=== PATIENT | male | born 1940 | race Caucasian/White ===

== ENCOUNTER 2018-09-09 06:27 | Emergency (ER) | payer MEDICARE ==
[~2018-09-09] VITALS: Ht 182.9 cm; Wt 70.3 kg
[2018-09-09 06:35] VITALS: BP 170/87
--- NOTE | 2018-09-09 07:00 | PHYS DOC ---
Past Medical History Past Medical History: CVA, High Cholesterol, Hypertension Past Surgical History: Other Additional Past Surgical Histo: AAA Alcohol Use: None Drug Use: None Adult General Chief Complaint Chief Complaint: EARACHE/EAR PAIN HPI HPI Patient is a 78 year old [f__sex] who presents with [] Review of Systems Review of Systems Constitutional: Denies fever or chills [] Eyes: Denies change in visual acuity, redness, or eye pain [] HENT: Denies nasal congestion or sore throat [] Respiratory: Denies cough or shortness of breath [] Cardiovascular: No additional information not addressed in HPI [] GI: Denies abdominal pain, nausea, vomiting, bloody stools or diarrhea [] : Denies dysuria or hematuria [] Musculoskeletal: Denies back pain or joint pain [] Integument: Denies rash or skin lesions [] Neurologic: Denies headache, focal weakness or sensory changes [] Endocrine: Denies polyuria or polydipsia [] All other systems were reviewed and found to be within normal limits, except as documented in this note. Allergies Allergies Allergies Coded Allergies Type Severity Reaction Last Updated Verified No Known Drug Allergies 09/09/18 No Physical Exam Physical Exam Constitutional: Well developed, well nourished, no acute distress, non-toxic appearance. [] HENT: Normocephalic, atraumatic, bilateral external ears normal, oropharynx moist, no oral exudates, nose normal. [] Eyes: PERRLA, EOMI, conjunctiva normal, no discharge. [] Neck: Normal range of motion, no tenderness, supple, no stridor. [] Cardiovascular:Heart rate regular rhythm, no murmur [] Lungs & Thorax: Bilateral breath sounds clear to auscultation [] Abdomen: Bowel sounds normal, soft, no tenderness, no masses, no pulsatile masses. [] Skin: Warm, dry, no erythema, no rash. [] Back: No tenderness, no CVA tenderness. [] Extremities: No tenderness, no cyanosis, no clubbing, ROM intact, no edema. [] Neurologic: Alert and oriented X 3, normal motor function, normal sensory function, no focal deficits noted. [] Psychologic: Affect normal, judgement normal, mood normal. [] Current Patient Data Vital Signs Vital Signs Date Time Temp Pulse Resp B/P (MAP) Pulse Ox O2 Delivery O2 Flow Rate FiO2 09/09/18 06:35 98.2 77 22 170/87 (114) 92 Room Air 98.2 EKG EKG [] Radiology/Procedures Radiology/Procedures [] Course & Med Decision Making Course & Med Decision Making Pertinent Labs and Imaging studies reviewed. (See chart for details) [] Dragon Disclaimer Dragon Disclaimer This electronic medical record was generated, in whole or in part, using a voice recognition dictation system. Departure Departure Impression: Primary Impression: Ear discharge blood Disposition: HOME, SELF-CARE Condition: STABLE Referrals: UNKNOWN PCP NAME (PCP) FABIOLA EWING MD Patient Instructions: Tympanic Membrane Perforation-SportsMed Additional Instructions: Paper Rx for Corticosporin Otic suspension given. Problem Qualifiers Primary Impression: Ear discharge blood Laterality: right Qualified Codes: H92.21 - Otorrhagia, right ear LEVAR LOYA DO Sep 09, 2018 07:00
== END 2018-09-09 07:15 | disposition home or self-care (01) ==
LOC: ER 06:27
DX: H92.21 Otorrhagia, right ear (principal); I10 Essential (primary) hypertension; E78.00 Pure hypercholesterolemia, unspecified; Z86.73 Personal history of transient ischemic attack (TIA), and cerebral infarction without residual deficits
CPT/HCPCS: 99283

== ENCOUNTER 2019-11-24 17:03 | Emergency (ER) | payer MEDICARE ==
[~2019-11-24] VITALS: Ht 182.9 cm; Wt 73.6 kg
[~2019-11-24 17:03] MED LIST: AMLO10TA8 PO; APIX5TAB PO; ATOR20TA PO; LEVE500T56 PO; LISI-334 PO; METO25TA4 PO; METO50TA6 PO
--- NOTE | 2019-11-24 17:33 | PHYS DOC ---
Past Medical History Past Medical History: CVA, High Cholesterol, Hypertension (LEVAR HARRISON APRN) Past Surgical History: Other Additional Past Surgical Histo: AAA (LEVAR HARRISON APRN) Alcohol Use: None Drug Use: None (LEVAR HARRISON APRN) Adult General Chief Complaint Chief Complaint: HYPERTENSION HPI HPI Patient is a 79 year old male who presents with high blood pressure that his home health nurse noticed earlier today. The patient was recently admitted to the hospital for stroke. States that since he was discharged his blood pressures been running in the 150s and 160s systolic. His primary care doctor did put him on hydralazine yesterday. He took his first dose at 4:00 today. He is also taking Metoprolol, Amlodipine, and Lisinopril. He states he's been taking his medicines as prescribed. He also states that he is not currently having any symptoms. He denies chest pain, nausea, headache, dizziness, blurry vision. (LEVAR HARRISON APRN) Review of Systems Review of Systems Constitutional: Denies fever or chills [] Eyes: Denies change in visual acuity, redness, or eye pain [] HENT: Denies nasal congestion or sore throat [] Respiratory: Denies cough or shortness of breath [] Cardiovascular: No additional information not addressed in HPI [] GI: Denies abdominal pain, nausea, vomiting, bloody stools or diarrhea [] : Denies dysuria or hematuria [] Musculoskeletal: Denies back pain or joint pain [] Integument: Denies rash or skin lesions [] Neurologic: Denies headache, focal weakness or sensory changes [] Endocrine: Denies polyuria or polydipsia [] Complete systems were reviewed and found to be within normal limits, except as documented in this note. (LEVAR HARRISON APRN) Current Medications Current Medications Current Medications Medications (Trade) Dose Ordered Sig/Margie Start Time Stop Time Status Last Admin Dose Admin Labetalol HCl (Normodyne Iv Push) 20 mg 1X ONCE 11/24/19 17:45 11/24/19 17:46 DC 11/24/19 17:45 20 MG (GERRI ZARATE MD) Allergies Allergies Allergies Coded Allergies Type Severity Reaction Last Updated Verified No Known Drug Allergies 09/09/18 No (GERRI ZARATE MD) Physical Exam Physical Exam Constitutional: Well developed, well nourished, no acute distress, non-toxic appearance. [] HENT: Normocephalic, atraumatic, bilateral external ears normal, oropharynx [address], no oral exudates, nose normal. [] Eyes: PERRLA, EOMI, conjunctiva normal, no discharge. [] Neck: Normal range of motion, no tenderness, supple, no stridor. [] Cardiovascular:Heart rate regular rhythm, no murmur [] Lungs & Thorax: Bilateral breath sounds clear to auscultation [] Abdomen: Bowel sounds normal, soft, no tenderness, no masses, no pulsatile masses. [] Skin: Warm, dry, no erythema, no rash. [] Neurologic: Alert and oriented X 3, normal motor function, normal sensory function, no focal deficits noted. [] Psychologic: Affect normal, judgement normal, mood normal. [] (LEVAR HARRISON APRN) Current Patient Data Vital Signs Vital Signs Date Time Temp Pulse Resp B/P (MAP) Pulse Ox O2 Delivery O2 Flow Rate FiO2 11/24/19 18:03 69 98 11/24/19 17:45 220/117 11/24/19 17:20 96.3 23 Room Air 96.3 (GERRI ZARATE MD) Lab Values Laboratory Tests Test 11/24/19 17:45 11/24/19 18:28 White Blood Count 7.5 x10^3/uL (4.0-11.0) Red Blood Count 4.33 x10^6/uL (4.30-5.70) Hemoglobin 12.2 g/dL (13.0-17.5) L Hematocrit 37.2 % (39.0-53.0) L Mean Corpuscular Volume 86 fL (79-100) Mean Corpuscular Hemoglobin 28 pg (25-35) Mean Corpuscular Hemoglobin Concent 33 g/dL (31-37) Red Cell Distribution Width 14.9 % (11.5-14.5) H Platelet Count 306 x10^3/uL (140-400) Neutrophils (%) (Auto) 76 % (31-73) H Lymphocytes (%) (Auto) 9 % (24-48) L Monocytes (%) (Auto) 10 % (0-9) H Eosinophils (%) (Auto) 3 % (0-3) Basophils (%) (Auto) 1 % (0-3) Neutrophils # (Auto) 5.7 x10^3/uL (1.8-7.7) Lymphocytes # (Auto) 0.7 x10^3/uL (1.0-4.8) L Monocytes # (Auto) 0.7 x10^3/uL (0.0-1.1) Eosinophils # (Auto) 0.2 x10^3/uL (0.0-0.7) Basophils # (Auto) 0.1 x10^3/uL (0.0-0.2) Sodium Level 147 mmol/L (136-145) H Potassium Level 4.1 mmol/L (3.5-5.1) Chloride Level 108 mmol/L (98-107) H Carbon Dioxide Level 34 mmol/L (21-32) H Anion Gap 5 (6-14) L Blood Urea Nitrogen 14 mg/dL (8-26) Creatinine 1.1 mg/dL (0.7-1.3) Estimated GFR (Cockcroft-Gault) 64.4 BUN/Creatinine Ratio 13 (6-20) Glucose Level 99 mg/dL (70-99) Calcium Level 8.4 mg/dL (8.5-10.1) L Total Bilirubin 0.7 mg/dL (0.2-1.0) Aspartate Amino Transferase (AST) 16 U/L (15-37) Alanine Aminotransferase (ALT) 17 U/L (16-63) Alkaline Phosphatase 113 U/L (46-116) Troponin I Quantitative < 0.017 ng/mL (0.000-0.055) Total Protein 6.2 g/dL (6.4-8.2) L Albumin 2.9 g/dL (3.4-5.0) L Albumin/Globulin Ratio 0.9 (1.0-1.7) L Laboratory Tests 11/24/19 17:45 Laboratory Tests 11/24/19 18:28 (GERRI ZARATE MD) Lab Values Laboratory Tests Test 11/24/19 17:45 White Blood Count 7.5 x10^3/uL (4.0-11.0) Red Blood Count 4.33 x10^6/uL (4.30-5.70) Hemoglobin 12.2 g/dL (13.0-17.5) L Hematocrit 37.2 % (39.0-53.0) L Mean Corpuscular Volume 86 fL (79-100) Mean Corpuscular Hemoglobin 28 pg (25-35) Mean Corpuscular Hemoglobin Concent 33 g/dL (31-37) Red Cell Distribution Width 14.9 % (11.5-14.5) H Platelet Count 306 x10^3/uL (140-400) Neutrophils (%) (Auto) 76 % (31-73) H Lymphocytes (%) (Auto) 9 % (24-48) L Monocytes (%) (Auto) 10 % (0-9) H Eosinophils (%) (Auto) 3 % (0-3) Basophils (%) (Auto) 1 % (0-3) Neutrophils # (Auto) 5.7 x10^3/uL (1.8-7.7) Lymphocytes # (Auto) 0.7 x10^3/uL (1.0-4.8) L Monocytes # (Auto) 0.7 x10^3/uL (0.0-1.1) Eosinophils # (Auto) 0.2 x10^3/uL (0.0-0.7) Basophils # (Auto) 0.1 x10^3/uL (0.0-0.2) Laboratory Tests 11/24/19 17:45 (LEVAR HARRISON APRN) EKG EKG EKG interpreted by Dr. Henry Sinus with rate of 77. (LEVAR HARRISON APRN) Radiology/Procedures Radiology/Procedures [][facility] [address], [place] [id number] IMAGING REPORT Signed PATIENT: DIANA CAMACHO ACCOUNT: [id number] : 1940 LOCATION: ER AGE: 79 SEX: M EXAM STATUS: REG ER ORD. PHYSICIAN: LEVAR HARRISON APRN REASON: hypertension, headache PROCEDURE: CT HEAD WO CONTRAST CT HEAD WO CONTRAST History: Hypertension. Headache. Comparison: November 09, 2019 Technique: Noncontrast CT imaging was performed of the head. Exposure: One or more of the following individualized dose reduction techniques were utilized for this examination: 1. Automated exposure control 2. Adjustment of the mA and/or kV according to patient size 3. Use of iterative reconstruction technique. Findings: No intracranial hemorrhage. No mass effect. No hydrocephalus. Mild brain parenchymal volume loss. Chronic left basal ganglia and right inferior cerebellar lacunar infarcts. Mild foci of decreased attenuation within the hemispheric white matter, most often due to chronic microvascular ischemia. Imaged orbits are unremarkable. Small left maxillary sinus mucous retention cyst or polyp. Minimal scattered mucosal thickening. Minimal left mastoid fluid. No acute calvarial fracture. Impression: 1. No acute intracranial abnormality. Electronically signed by: Kevin Parker DO (11/24/2019 6:13 PM) [facility] DICTATED and SIGNED BY: KEVIN PARKER DO DATE: 11/24/191812 (LEVAR HARRISON APRN) Course & Med Decision Making Course & Med Decision Making Pertinent Labs and Imaging studies reviewed. (See chart for details) Will get CT head, labs, EKG, and give labetalol. CT head is unremarkable. Labetalol lowered blood pressure to 181/91. Discussed symptoms with patient. There has been improvement in blood pressure. Discussed blood pressure diary and let primary care provider know about symptoms. Also discussed to come back to ER if becomes symptomatic. Will d/c home and give time for new blood pressure medications to work. (LEVAR HARRISON APRN) Course & Med Decision Making Lab values reviewed (GERRI ZARATE MD) Dragon Disclaimer Dragon Disclaimer This electronic medical record was generated, in whole or in part, using a voice recognition dictation system. (LEVAR HARRISON APRN) Departure Departure Impression: Primary Impression: Hypertension Disposition: HOME, SELF-CARE Condition: STABLE Referrals: KRISTA PELAEZ (PCP) Patient Instructions: Hypertension Additional Instructions: Thank you for visiting [facility]. We appreciate you trusting us with your care. If any additional problems come up don't hesitate to return to visit us. Please follow up with your primary care provider so they can plan additional care if needed and know about the problem that you had. If symptoms worsen come back to the Emergency Department. Any concerning symptoms that start such as chest pain, shortness of air, weakness or numbness on one side of the body, running high fevers or any other concerning symptoms return to the ER. Problem Qualifiers Primary Impression: Hypertension Hypertension type: unspecified Qualified Codes: I10 - Essential (primary) hypertension LEVAR HARRISON APRN Nov 24, 2019 17:33 GERRI ZARATE MD Nov 24, 2019 19:51
[2019-11-24] MEDS ORDERED: LABETALOL 20 MG/4 ML DISP.SYRIN. IVP ONE (17:45)
[2019-11-24 17:59] LABS: BASO # 0.1 x10^3/uL (0.0-0.2); BASO % 1 % (0-3); EOS # 0.2 x10^3/uL (0.0-0.7); EOS % 3 % (0-3); HEMATOCRIT 37.2 % (39.0-53.0); HEMOGLOBIN 12.2 g/dL (13.0-17.5); LYMPH # 0.7 x10^3/uL (1.0-4.8); LYMPH % 9 % (24-48); MEAN CORPUSCULAR HEMOGLOBIN 28 pg (25-35); MEAN CORPUSCULAR HGB CONC 33 g/dL (31-37); MEAN CORPUSCULAR VOLUME 86 fL (79-100); MONO # 0.7 x10^3/uL (0.0-1.1); MONO % 10 % (0-9); NEUT # 5.7 x10^3/uL (1.8-7.7); NEUT % 76 % (31-73); PLATELET COUNT 306 x10^3/uL (140-400); RED BLOOD COUNT 4.33 x10^6/uL (4.30-5.70); RED CELL DISTRIBUTION WIDTH 14.9 % (11.5-14.5); WHITE BLOOD COUNT 7.5 x10^3/uL (4.0-11.0)
--- NOTE | 2019-11-24 18:16 | RAD ---
CT HEAD WO CONTRAST History: Hypertension. Headache. Comparison: November 09, 2019 Technique: Noncontrast CT imaging was performed of the head. Exposure: One or more of the following individualized dose reduction techniques were utilized for this examination: 1. Automated exposure control 2. Adjustment of the mA and/or kV according to patient size 3. Use of iterative reconstruction technique. Findings: No intracranial hemorrhage. No mass effect. No hydrocephalus. Mild brain parenchymal volume loss. Chronic left basal ganglia and right inferior cerebellar lacunar infarcts. Mild foci of decreased attenuation within the hemispheric white matter, most often due to chronic microvascular ischemia. Imaged orbits are unremarkable. Small left maxillary sinus mucous retention cyst or polyp. Minimal scattered mucosal thickening. Minimal left mastoid fluid. No acute calvarial fracture. Impression: 1. No acute intracranial abnormality. Electronically signed by: Kevin Parker DO (11/24/2019 6:13 PM) [facility]
--- NOTE | 2019-11-24 18:49 | EKG ---
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
[2019-11-24 19:02] LABS: CALCIUM 8.4 mg/dL (8.5-10.1); CREATININE 1.1 mg/dL (0.7-1.3); GFR 64.4; POTASSIUM 4.1 mmol/L (3.5-5.1)
[2019-11-24 19:09] LABS: ALBUMIN 2.9 g/dL (3.4-5.0); ALBUMIN/GLOBULIN RATIO 0.9 (1.0-1.7); TOTAL BILIRUBIN 0.7 mg/dL (0.2-1.0); TOTAL PROTEIN 6.2 g/dL (6.4-8.2)
[2019-11-24] MEDS ORDERED: cloNIDine HCL 0.1 MG TABLET ONE (20:01)
[2019-11-24] MEDS ORDERED: cloNIDine HCL 0.1 MG TABLET PO ONE (20:15)
[2019-11-24 20:16] VITALS: BP 184/111
== END 2019-11-24 20:20 | disposition home or self-care (01) ==
LOC: ER 17:03
DX: I10 Essential (primary) hypertension (principal); R51 Headache; E78.00 Pure hypercholesterolemia, unspecified; Z86.73 Personal history of transient ischemic attack (TIA), and cerebral infarction without residual deficits
CPT/HCPCS: 36415; 70450; 80053; 84484; 85025; 93005; 96374; 99285; J3490

== ENCOUNTER 2020-06-29 09:32 | Inpatient (IN) | payer MEDICARE ==
[~2020-06-29] VITALS: Ht 182.9 cm; Wt 72.6 kg
[2020-06-29 10:02] LABS: BASO # 0.1 x10^3/uL (0.0-0.2); BASO % 1 % (0-3); EOS # 0.1 x10^3/uL (0.0-0.7); EOS % 1 % (0-3); HEMATOCRIT 42.4 % (39.0-53.0); HEMOGLOBIN 13.5 g/dL (13.0-17.5); LYMPH # 1.3 x10^3/uL (1.0-4.8); LYMPH % 14 % (24-48); MEAN CORPUSCULAR HEMOGLOBIN 26 pg (25-35); MEAN CORPUSCULAR HGB CONC 32 g/dL (31-37); MEAN CORPUSCULAR VOLUME 81 fL (79-100); MONO # 0.8 x10^3/uL (0.0-1.1); MONO % 8 % (0-9); NEUT # 6.9 x10^3/uL (1.8-7.7); NEUT % 76 % (31-73); PLATELET COUNT 265 x10^3/uL (140-400); RED BLOOD COUNT 5.22 x10^6/uL (4.30-5.70); RED CELL DISTRIBUTION WIDTH 16.4 % (11.5-14.5); WHITE BLOOD COUNT 9.1 x10^3/uL (4.0-11.0)
[2020-06-29 10:12] LABS: PROTHROMBIN TIME PATIENT 15.2 SEC (11.7-14.0)
[2020-06-29] MEDS ORDERED: levETIRAcetam 500 MG in IV DEXTROSE 5% 100ML 100 ML IV ONE ×2 (10:30→11:00)
[2020-06-29 10:31] LABS: CALCIUM 9.1 mg/dL (8.5-10.1); CREATININE 1.4 mg/dL (0.7-1.3); GFR 48.6; POTASSIUM 3.9 mmol/L (3.5-5.1)
--- NOTE | 2020-06-29 10:31 | RAD ---
CT head and cervical spine without contrast History: Headaches, seizure Technique: Noncontrast CT imaging was performed of the head and cervical spine. Multiplanar reconstruction images are submitted. Exposure: One or more of the following individualized dose reduction techniques were utilized for this examination: 1. Automated exposure control 2. Adjustment of the mA and/or kV according to patient size 3. Use of iterative reconstruction technique. Head CT Comparison: November 24, 2019 Findings: Patient's head is somewhat tilted in the gantry during exam. No convincing acute extra-axial or parenchymal hemorrhage is identified. There is no significant intra-axial mass effect, midline shift, or extra-axial fluid collection. The mansfield-white differentiation of the major vascular territories is preserved. There is again old left basal ganglia lacunar infarct. The ventricles, sulci, and cisterns are within normal limits in size and configuration. The mastoid air cells and the visualized paranasal sinuses are aerated. There is no significant focal calvarial abnormality. There is atherosclerotic calcification of the carotid siphons and intradural vertebral arteries bilaterally. Impression: 1. No convincing acute intracranial abnormality is identified. There is again old left basal ganglia lacunar infarct. Cervical spine CT Comparison: Reconstruction images from neck CTA November 09, 2019 Findings: No acute cervical spine fracture is identified. Vertebral body stature is unchanged. There is a large focus of gas in the left C6 vertebral body as seen previously likely related to Schmorl's node. There is very mild grade 1 anterior spondylolisthesis C4-5 and very minimal posterior subluxation C5 relative to C6. There is moderate to severe degenerative disc disease at C5-6 and C6-7, also spondylosis at these levels. No significant cervical spinal stenosis is identified on this nonmyelographic exam. Atlanto-axial distance is within normal limits. There is degree of atlantoaxial rotatory subluxation. There is appropriate alignment of lateral masses of C1 relative to C2. Occipital condylar-C1 relationship is maintained. There is multilevel facet degenerative change, also some variable uncovertebral degenerative change. There is at least mild bilateral C3-4 neural foramina compromise. There is fairly severe narrowing of the left C4-5 neural foramen. There is also moderate to severe bilateral C5-6 and left C6-7 neural foramina compromise. There is mild cervical dextroscoliosis. There is some atherosclerotic calcification of the carotid arteries in the neck bilaterally. Impression: 1. No acute cervical spine fracture is identified. There is degree of atlantoaxial rotatory subluxation. 2. There is multilevel cervical neural foramina compromise due to facet and uncovertebral degenerative change. 3. There is degenerative disc disease and spondylosis greatest at C5-6 and C7. 4. There is mild abnormal alignment as stated, multilevel facet degenerative change. Electronically signed by: Munir Holloway MD (06/29/2020 10:28 AM) [id number]
[2020-06-29 10:43] LABS: ALBUMIN 3.5 g/dL (3.4-5.0); ALBUMIN/GLOBULIN RATIO 0.8 (1.0-1.7); MAGNESIUM 1.7 mg/dL (1.8-2.4); TOTAL PROTEIN 7.8 g/dL (6.4-8.2)
[2020-06-29] MEDS ORDERED: MAGNESIUM SULFATE 1GM 100 ML IV ONE (11:00)
--- NOTE | 2020-06-29 11:12 | RAD ---
PROCEDURE: ANKLE RIGHT 3V CLINICAL INDICATION / HISTORY: Reason: RIGHT ANKLE INJURY / Spl. Instructions: / History: . TECHNIQUE: Right ankle 3 views. COMPARISON: None FINDINGS: The ankle mortise is approximated, and the talar dome is unremarkable. The joint space widths are maintained. No fracture or dislocation is identified. No soft tissue swelling is appreciated. The bones are mildly demineralized. IMPRESSION: No acute osseous abnormality. Electronically signed by: Jahaira Bazzi MD (06/29/2020 11:09 AM) [id number]
[2020-06-29] MEDS ORDERED: MORPHINE SULFATE 2 MG/ML VIAL. IV PRN ×2 (11:15)
--- NOTE | 2020-06-29 11:16 | PDOC1 ---
History and Physical Date of Admission Date of Admission DATE: 06/29/20 TIME: 11:15 Identification/Chief Complaint Chief Complaint Seizure, fall Source Source: Caregiver, Unable to obtain due to (Clinical condition) History of Present Illness History of Present Illness Patient is a 80-year-old male with past medical history of seizure, CVA, A. fib, who presents to the ER after a witnessed seizure and fall this morning with head injury. History was obtained from patient's due to postictal state. Per patient's he was in his normal state of health when she heard a fall around 9:00 this morning and witnessed seizure-like activity, so she contacted EMS. Patient's expresses some concern about medication compliance. She states that he is on blood thinners due to a history of A. fib. Past Medical History Cardiovascular: HTN, Hyperlipidemia, Other Pulmonary: No pertinent hx CENTRAL NERVOUS SYSTEM: Other GI: GERD Heme/Onc: No pertinent hx Hepatobiliary: No pertinent hx Psych: No pertinent hx Musculoskeletal: Osteoarthritis Infectious disease: No pertinent hx Renal/: No pertinent hx Past Surgical History Past Surgical History: Other (AAA repair) Family History Family History Unable to obtain at this time due to clinical condition Family History: Other Social History Smoke: Quit ALCOHOL: none Drugs: None Current Problem List Problems: (1) Vasomotor nephropathy (2) Hypertension (3) Seizure Current Medications Current Medications Current Medications Lorazepam (Ativan Inj) 2 mg 1X ONCE IVP Last administered on 06/29/20at 10:14; Start 06/29/20 at 10:00; Stop 06/29/20 at 10:01; Status DC Lorazepam (Ativan Inj) 2 mg STK-MED ONCE .ROUTE ; Start 06/29/20 at 09:45; Stop 06/29/20 at 09:45; Status DC Levetiracetam 500 mg/Dextrose 105 ml @ 420 mls/hr 1X ONCE IV Last a dministered on 06/29/20at 10:30; Start 06/29/20 at 10:30; Stop 06/29/20 at 10:44; Status DC Magnesium Sulfate/ Dextrose 100 ml @ 100 mls/hr 1X ONCE IV Last administered on 06/29/20at 11:02; Start 06/29/20 at 11:00; Stop 06/29/20 at 11:59 Levetiracetam 500 mg/Dextrose 105 ml @ 420 mls/hr 1X ONCE IV ; Start 06/29/20 at 11:00; Stop 06/29/20 at 11:14; Status DC Active Scripts Active Keppra (Levetiracetam) 500 Mg Tablet 500 Mg PO BID 30 Days Metoprolol Tartrate 25 Mg Tablet 25 Mg PO BID 30 Days Reported Amlodipine Besylate 10 Mg Tablet 10 Mg PO DAILY Eliquis (Apixaban) 5 Mg Tablet 5 Mg PO BID Lisinopril 20 Mg Tablet 2 Tab PO DAILY Lipitor (Atorvastatin Calcium) 20 Mg Tablet 1 Tab PO DAILY Allergies Allergies: Coded Allergies: No Known Drug Allergies (Unverified , 09/09/18) ROS Review of System Unable to obtain at this time due to clinical condition Physical Exam General: No acute distress HEENT: Other (Superficial laceration to anterior scalp) Lungs: Clear to auscultation, Normal air movement Heart: RRR, no jug vein distention Cardiovascular: S1, S2 Abdomen: Normal bowel sounds, Soft Extremities: No clubbing, No cyanosis, No edema Skin: No rashes, No significant lesion Neuro: Normal tone Psych/Mental Status: Other (Lethargic) Vitals Vitals Vital Signs Date Time Temp Pulse Resp B/P (MAP) Pulse Ox O2 Delivery O2 Flow Rate FiO2 06/29/20 09:40 115 20 215/135 (161) Nasal Cannula 3.0 Labs Labs Laboratory Tests Test 06/29/20 09:43 White Blood Count 9.1 x10^3/uL (4.0-11.0) Red Blood Count 5.22 x10^6/uL (4.30-5.70) Hemoglobin 13.5 g/dL (13.0-17.5) Hematocrit 42.4 % (39.0-53.0) Mean Corpuscular Volume 81 fL (79-100) Mean Corpuscular Hemoglobin 26 pg (25-35) Mean Corpuscular Hemoglobin Concent 32 g/dL (31-37) Red Cell Distribution Width 16.4 % (11.5-14.5) Platelet Count 265 x10^3/uL (140-400) Neutrophils (%) (Auto) 76 % (31-73) Lymphocytes (%) (Auto) 14 % (24-48) Monocytes (%) (Auto) 8 % (0-9) Eosinophils (%) (Auto) 1 % (0-3) Basophils (%) (Auto) 1 % (0-3) Neutrophils # (Auto) 6.9 x10^3/uL (1.8-7.7) Lymphocytes # (Auto) 1.3 x10^3/uL (1.0-4.8) Monocytes # (Auto) 0.8 x10^3/uL (0.0-1.1) Eosinophils # (Auto) 0.1 x10^3/uL (0.0-0.7) Basophils # (Auto) 0.1 x10^3/uL (0.0-0.2) Prothrombin Time 15.2 SEC (11.7-14.0) Prothromb Time International Ratio 1.2 (0.8-1.1) Activated Partial Thromboplast Time 36 SEC (24-38) Sodium Level 141 mmol/L (136-145) Potassium Level 3.9 mmol/L (3.5-5.1) Chloride Level 101 mmol/L (98-107) Carbon Dioxide Level 26 mmol/L (21-32) Anion Gap 14 (6-14) Blood Urea Nitrogen 15 mg/dL (8-26) Creatinine 1.4 mg/dL (0.7-1.3) Estimated GFR (Cockcroft-Gault) 48.6 BUN/Creatinine Ratio 11 (6-20) Glucose Level 186 mg/dL (70-99) Calcium Level 9.1 mg/dL (8.5-10.1) Magnesium Level 1.7 mg/dL (1.8-2.4) Total Bilirubin 1.0 mg/dL (0.2-1.0) Aspartate Amino Transf (AST/SGOT) 16 U/L (15-37) Alanine Aminotransferase (ALT/SGPT) 16 U/L (16-63) Alkaline Phosphatase 141 U/L (46-116) Creatine Kinase 84 U/L (39-308) Troponin I Quantitative < 0.017 ng/mL (0.000-0.055) MF-Doe-Q-Type Natriuretic Peptide 3995 pg/mL (0-449) Total Protein 7.8 g/dL (6.4-8.2) Albumin 3.5 g/dL (3.4-5.0) Albumin/Globulin Ratio 0.8 (1.0-1.7) Laboratory Tests Test 06/29/20 09:43 White Blood Count 9.1 x10^3/uL (4.0-11.0) Red Blood Count 5.22 x10^6/uL (4.30-5.70) Hemoglobin 13.5 g/dL (13.0-17.5) Hematocrit 42.4 % (39.0-53.0) Mean Corpuscular Volume 81 fL (79-100) Mean Corpuscular Hemoglobin 26 pg (25-35) Mean Corpuscular Hemoglobin Concent 32 g/dL (31-37) Red Cell Distribution Width 16.4 % (11.5-14.5) Platelet Count 265 x10^3/uL (140-400) Neutrophils (%) (Auto) 76 % (31-73) Lymphocytes (%) (Auto) 14 % (24-48) Monocytes (%) (Auto) 8 % (0-9) Eosinophils (%) (Auto) 1 % (0-3) Basophils (%) (Auto) 1 % (0-3) Neutrophils # (Auto) 6.9 x10^3/uL (1.8-7.7) Lymphocytes # (Auto) 1.3 x10^3/uL (1.0-4.8) Monocytes # (Auto) 0.8 x10^3/uL (0.0-1.1) Eosinophils # (Auto) 0.1 x10^3/uL (0.0-0.7) Basophils # (Auto) 0.1 x10^3/uL (0.0-0.2) Prothrombin Time 15.2 SEC (11.7-14.0) Prothromb Time International Ratio 1.2 (0.8-1.1) Activated Partial Thromboplast Time 36 SEC (24-38) Sodium Level 141 mmol/L (136-145) Potassium Level 3.9 mmol/L (3.5-5.1) Chloride Level 101 mmol/L (98-107) Carbon Dioxide Level 26 mmol/L (21-32) Anion Gap 14 (6-14) Blood Urea Nitrogen 15 mg/dL (8-26) Creatinine 1.4 mg/dL (0.7-1.3) Estimated GFR (Cockcroft-Gault) 48.6 BUN/Creatinine Ratio 11 (6-20) Glucose Level 186 mg/dL (70-99) Calcium Level 9.1 mg/dL (8.5-10.1) Magnesium Level 1.7 mg/dL (1.8-2.4) Total Bilirubin 1.0 mg/dL (0.2-1.0) Aspartate Amino Transf (AST/SGOT) 16 U/L (15-37) Alanine Aminotransferase (ALT/SGPT) 16 U/L (16-63) Alkaline Phosphatase 141 U/L (46-116) Creatine Kinase 84 U/L (39-308) Troponin I Quantitative < 0.017 ng/mL (0.000-0.055) AS-Zhx-S-Type Natriuretic Peptide 3995 pg/mL (0-449) Total Protein 7.8 g/dL (6.4-8.2) Albumin 3.5 g/dL (3.4-5.0) Albumin/Globulin Ratio 0.8 (1.0-1.7) Images Images CT head and cervical spine without contrast History: Headaches, seizure Technique: Noncontrast CT imaging was performed of the head and cervical spine. Multiplanar reconstruction images are submitted. Exposure: One or more of the following individualized dose reduction techniques were utilized for this examination: 1. Automated exposure control 2. Adjustment of the mA and/or kV according to patient size 3. Use of iterative reconstruction technique. Head CT Comparison: November 24, 2019 Findings: Patient's head is somewhat tilted in the gantry during exam. No convincing acute extra-axial or parenchymal hemorrhage is identified. There is no significant intra-axial mass effect, midline shift, or extra-axial fluid collection. The mansfield-white differentiation of the major vascular territories is preserved. There is again old left basal ganglia lacunar infarct. The ventricles, sulci, and cisterns are within normal limits in size and configuration. The mastoid air cells and the visualized paranasal sinuses are aerated. There is no significant focal calvarial abnormality. There is atherosclerotic calcification of the carotid siphons and intradural vertebral arteries bilaterally. Impression: 1. No convincing acute intracranial abnormality is identified. There is again old left basal ganglia lacunar infarct. Cervical spine CT Comparison: Reconstruction images from neck CTA November 09, 2019 Findings: No acute cervical spine fracture is identified. Vertebral body stature is unchanged. There is a large focus of gas in the left C6 vertebral body as seen previously likely related to Schmorl's node. There is very mild grade 1 anterior spondylolisthesis C4-5 and very minimal posterior subluxation C5 relative to C6. There is moderate to severe degenerative disc disease at C5-6 and C6-7, also spondylosis at these levels. No significant cervical spinal stenosis is identified on this nonmyelographic exam. Atlanto-axial distance is within normal limits. There is degree of atlantoaxial rotatory subluxation. There is appropriate alignment of lateral masses of C1 relative to C2. Occipital condylar-C1 relationship is maintained. There is multilevel facet degenerative change, also some variable uncovertebral degenerative change. There is at least mild bilateral C3-4 neural foramina compromise. There is fairly severe narrowing of the left C4-5 neural foramen. There is also moderate to severe bilateral C5-6 and left C6-7 neural foramina compromise. There is mild cervical dextroscoliosis. There is some atherosclerotic calcification of the carotid arteries in the neck bilaterally. Impression: 1. No acute cervical spine fracture is identified. There is degree of atlantoaxial rotatory subluxation. 2. There is multilevel cervical neural foramina compromise due to facet and uncovertebral degenerative change. 3. There is degenerative disc disease and spondylosis greatest at C5-6 and C7. 4. There is mild abnormal alignment as stated, multilevel facet degenerative change. VTE Prophylaxis Ordered VTE Prophylaxis Devices: Yes VTE Pharmacological Prophylaxi: Yes Assessment/Plan Assessment/Plan Seizure, vasomotor nephropathy, fall at home, A. fib on blood thinner Plan: Continue Keppra IV twice daily. Ativan as needed seizure-like activity. UA and UDS pending. Consults been placed to neurology. MRI in the morning if no improvement. Patient's is surrogate decision maker. VTE prophylaxis. DNR. Justifications for Admission Other Justification MELISSA MEYERS MD Jun 29, 2020 11:16
[2020-06-29] MEDS ORDERED: ONDANSETRON PF 4 MG/2 ML VIAL. IV PRN (11:45)
--- NOTE | 2020-06-29 11:50 | PHYS DOC ---
Past Medical History Past Medical History: CVA, High Cholesterol, Hypertension Past Surgical History: Other Additional Past Surgical Histo: AAA Smoking Status: Former Smoker Alcohol Use: None Drug Use: None General Adult EDM: Chief Complaint: SEIZURE HPI: HPI: Patient is a 80 year old male who was brought here from home after he had a seizure this morning. Patient had a stroke recently, had multiple seizure while he was in the hospital. Patient was put on Keppra to be taken at home. Patient woke up this morning, was walking around in the house in his living room, acting confused, his heard a loud noise and she turned around saw him on the floor having a seizure so EMS were called to take him here for evaluation. Review of Systems: Review of Systems: Constitutional: Denies fever or chills. [] Eyes: Denies change in visual acuity. [] HENT: Denies nasal congestion or sore throat. [] Respiratory: Denies cough or shortness of breath. [] Cardiovascular: Denies chest pain or edema. [] GI: Denies abdominal pain, nausea, vomiting, bloody stools or diarrhea. [] : Denies dysuria. [] Musculoskeletal: Denies back pain or joint pain. [] Integument: Denies rash. [] Neurologic: positive for headache, seizure Endocrine: Denies polyuria or polydipsia. [] Lymphatic: Denies swollen glands. [] Psychiatric: Denies depression or anxiety. [] Heart Score: Risk Factors: Risk Factors: DM, Current or recent (<one month) smoker, HTN, HLP, family history of CAD, obesity. Risk Scores: Score 0 - 3: 2.5% MACE over next 6 weeks - Discharge Home Score 4 - 6: 20.3% MACE over next 6 weeks - Admit for Clinical Observation Score 7 - 10: 72.7% MACE over next 6 weeks - Early Invasive Strategies Current Medications: Current Medications Medications (Trade) Dose Ordered Sig/Margie Start Time Stop Time Status Last Admin Dose Admin Levetiracetam 500 mg/Dextrose 105 ml @ 420 mls/hr 1X ONCE 06/29/20 11:00 06/29/20 11:14 DC Lorazepam (Ativan Inj) 2 mg PRN Q15MIN PRN 06/29/20 11:30 Magnesium Sulfate/ Dextrose 100 ml @ 100 mls/hr 1X ONCE 06/29/20 11:00 9/2/20 11:59 06/29/20 11:02 100 MLS/HR Morphine Sulfate (Morphine Sulfate) 2 mg PRN Q1HR PRN 06/29/20 11:15 Ondansetron HCl (Zofran) 4 mg PRN Q8HRS PRN 06/29/20 11:45 06/30/20 11:44 Allergies: Allergies: Allergies Coded Allergies Type Severity Reaction Last Updated Verified No Known Drug Allergies 09/09/18 No Physical Exam: PE: Constitutional: Well developed, well nourished, no acute distress, non-toxic appearance. [] HENT: Normocephalic, skin abrasion on forehead area, bilateral external ears normal, oropharynx moist, no oral exudates, nose normal. [] Eyes: PERRLA, EOMI, conjunctiva normal, no discharge. [] Neck: Normal range of motion, no tenderness, supple, no stridor. [] Cardiovascular:Heart rate regular rhythm, no murmur [] Lungs & Thorax: Bilateral breath sounds clear to auscultation [] Abdomen: Bowel sounds normal, soft, no tenderness, no masses, no pulsatile masses. [] Skin: Warm, dry, no erythema, no rash. [] Back: No tenderness, no CVA tenderness. [] Extremities: No tenderness, no cyanosis, no clubbing, ROM intact, no edema. Right ankle skin abrasion Neurologic: awake alert but shaking and twisting...follow command, moved all extremities. Psychologic: Affect normal, judgement normal, mood normal. [] Current Patient Data: Labs: Laboratory Tests Test 06/29/20 09:43 White Blood Count 9.1 x10^3/uL (4.0-11.0) Red Blood Count 5.22 x10^6/uL (4.30-5.70) Hemoglobin 13.5 g/dL (13.0-17.5) Hematocrit 42.4 % (39.0-53.0) Mean Corpuscular Volume 81 fL (79-100) Mean Corpuscular Hemoglobin 26 pg (25-35) Mean Corpuscular Hemoglobin Concent 32 g/dL (31-37) Red Cell Distribution Width 16.4 % (11.5-14.5) H Platelet Count 265 x10^3/uL (140-400) Neutrophils (%) (Auto) 76 % (31-73) H Lymphocytes (%) (Auto) 14 % (24-48) L Monocytes (%) (Auto) 8 % (0-9) Eosinophils (%) (Auto) 1 % (0-3) Basophils (%) (Auto) 1 % (0-3) Neutrophils # (Auto) 6.9 x10^3/uL (1.8-7.7) Lymphocytes # (Auto) 1.3 x10^3/uL (1.0-4.8) Monocytes # (Auto) 0.8 x10^3/uL (0.0-1.1) Eosinophils # (Auto) 0.1 x10^3/uL (0.0-0.7) Basophils # (Auto) 0.1 x10^3/uL (0.0-0.2) Prothrombin Time 15.2 SEC (11.7-14.0) H Prothrombin Time INR 1.2 (0.8-1.1) H Activated Partial Thromboplast Time 36 SEC (24-38) Sodium Level 141 mmol/L (136-145) Potassium Level 3.9 mmol/L (3.5-5.1) Chloride Level 101 mmol/L (98-107) Carbon Dioxide Level 26 mmol/L (21-32) Anion Gap 14 (6-14) Blood Urea Nitrogen 15 mg/dL (8-26) Creatinine 1.4 mg/dL (0.7-1.3) H Estimated GFR (Cockcroft-Gault) 48.6 BUN/Creatinine Ratio 11 (6-20) Glucose Level 186 mg/dL (70-99) H Calcium Level 9.1 mg/dL (8.5-10.1) Magnesium Level 1.7 mg/dL (1.8-2.4) L Total Bilirubin 1.0 mg/dL (0.2-1.0) Aspartate Amino Transferase (AST) 16 U/L (15-37) Alanine Aminotransferase (ALT) 16 U/L (16-63) Alkaline Phosphatase 141 U/L (46-116) H Creatine Kinase 84 U/L (39-308) Troponin I Quantitative < 0.017 ng/mL (0.000-0.055) [id number]-[id number]-Type Natriuretic Peptide 3995 pg/mL (0-449) H Total Protein 7.8 g/dL (6.4-8.2) Albumin 3.5 g/dL (3.4-5.0) Albumin/Globulin Ratio 0.8 (1.0-1.7) L Laboratory Tests 06/29/20 09:43 Laboratory Tests 06/29/20 09:43 Vital Signs: Vital Signs Date Time Temp Pulse Resp B/P (MAP) Pulse Ox O2 Delivery O2 Flow Rate FiO2 06/29/20 11:30 82 20 99 06/29/20 09:40 215/135 (161) Nasal Cannula 3.0 EKG: EKG: EKG was done at 1011, heart rate 102 bpm, sinus rhythm, no ST segment elevation Radiology/Procedures: Radiology/Procedures: [facility] [address] [place] [address] IMAGING REPORT Signed PATIENT: DIANA CAMACHO ACCOUNT: [id number] : 1940 LOCATION: ER AGE: 80 SEX: M EXAM STATUS: REG ER ORD. PHYSICIAN: MARIAELENA MAE DO REASON: RIGHT ANKLE INJURY PROCEDURE: ANKLE RIGHT 3V PROCEDURE: ANKLE RIGHT 3V CLINICAL INDICATION / HISTORY: Reason: RIGHT ANKLE INJURY / Spl. Instructions: / History: . TECHNIQUE: Right ankle 3 views. COMPARISON: None FINDINGS: The ankle mortise is approximated, and the talar dome is unremarkable. The joint space widths are maintained. No fracture or dislocation is identified. No soft tissue swelling is appreciated. The bones are mildly demineralized. IMPRESSION: No acute osseous abnormality. Electronically signed by: Sarita Bazzi MD (06/29/2020 11:09 AM) [id number] DICTATED and SIGNED BY: SARITA BAZZI MD DATE: 06/29/20 1109 [facility] [address] [place], [place] [id number] IMAGING REPORT Signed PATIENT: DIANA CAMACHO ACCOUNT: [id number] : 1940 LOCATION: ER AGE: 80 SEX: M EXAM STATUS: REG ER ORD. PHYSICIAN: MARIAELENA MAE DO REASON: HAS SEIZURE PROCEDURE: CT HEAD AND CERVICAL SPINE WO CT head and cervical spine without contrast History: Headaches, seizure Technique: Noncontrast CT imaging was performed of the head and cervical spine. Multiplanar reconstruction images are submitted. Exposure: One or more of the following individualized dose reduction techniques were utilized for this examination: 1. Automated exposure control 2. Adjustment of the mA and/or kV according to patient size 3. Use of iterative reconstruction technique. Head CT Comparison: November 24, 2019 Findings: Patient's head is somewhat tilted in the gantry during exam. No convincing acute extra-axial or parenchymal hemorrhage is identified. There is no significant intra-axial mass effect, midline shift, or extra-axial fluid collection. The mansfield-white differentiation of the major vascular territories is preserved. There is again old left basal ganglia lacunar infarct. The ventricles, sulci, and cisterns are within normal limits in size and configuration. The mastoid air cells and the visualized paranasal sinuses are aerated. There is no significant focal calvarial abnormality. There is atherosclerotic calcification of the carotid siphons and intradural vertebral arteries bilaterally. Impression: 1. No convincing acute intracranial abnormality is identified. There is again old left basal ganglia lacunar infarct. Cervical spine CT Comparison: Reconstruction images from neck CTA November 09, 2019 Findings: No acute cervical spine fracture is identified. Vertebral body stature is unchanged. There is a large focus of gas in the left C6 vertebral body as seen previously likely related to Schmorl's node. There is very mild grade 1 anterior spondylolisthesis C4-5 and very minimal posterior subluxation C5 relative to C6. There is moderate to severe degenerative disc disease at C5-6 and C6-7, also spondylosis at these levels. No significant cervical spinal stenosis is identified on this nonmyelographic exam. Atlanto-axial distance is within normal limits. There is degree of atlantoaxial rotatory subluxation. There is appropriate alignment of lateral masses of C1 relative to C2. Occipital condylar-C1 relationship is maintained. There is multilevel facet degenerative change, also some variable uncovertebral degenerative change. There is at least mild bilateral C3-4 neural foramina compromise. There is fairly severe narrowing of the left C4-5 neural foramen. There is also moderate to severe bilateral C5-6 and left C6-7 neural foramina compromise. There is mild cervical dextroscoliosis. There is some atherosclerotic calcification of the carotid arteries in the neck bilaterally. Impression: 1. No acute cervical spine fracture is identified. There is degree of atlantoaxial rotatory subluxation. 2. There is multilevel cervical neural foramina compromise due to facet and uncovertebral degenerative change. 3. There is degenerative disc disease and spondylosis greatest at C5-6 and C7. 4. There is mild abnormal alignment as stated, multilevel facet degenerative change. Electronically signed by: Saloni Lorenzana MD (06/29/2020 10:28 AM) [id number] DICTATED and SIGNED BY: SALONI LORENZANA MD DATE: 06/29/20 1028 Course & Med Decision Making: Course & Med Decision Making Pertinent Labs and Imaging studies reviewed. (See chart for details) Patient is an 80-year-old male who was evaluated in ER due to seizure activity, discussed with neurologist on-call Dr. David Jung who recommended to give patient 500 mg of IV Keppra. Admitted to hospital for observation. Dragon Disclaimer: Dragon Disclaimer: This electronic medical record was generated, in whole or in part, using a voice recognition dictation system. Departure Departure Referrals: UNKNOWN PCP NAME (PCP) Scripts Levetiracetam (LEVETIRACETAM) 750 Mg Tablet 750 MG PO BID for Seizures for 90 Days, #180 TAB 1 Refill Prov: ANDREW HILARIO MD 06/30/20 Justicifation of Admission Dx: Justifications for Admission: Justification of Admission Dx: Yes (seizure, confusion) MARIAELENA MAE DO Jun 29, 2020 11:50
--- NOTE | 2020-06-29 13:11 | PDOC2 ---
NEUROLOGY CONSULT Date of Service DOS: DATE: 06/29/20 TIME: 12:59 Reason for Consult Reason for Consult: Seizure Referring Physician Referring Physician: Dr. Chen History of Present Illness History of Present Illness The patient is an 80-year-old right-handed male who had a seizure this morning. He did not feel well, told his to leave him alone when she called him for breakfast. She witnessed a convuslvie seizure, he had a second one in the emergency department, but none since receiving extra levetiracetam, ativan, and magnesium. He was here in October with new seizure, found to have a subacute right occipital infarct and hypertensive encephalopathy. He has atrial fibrillation and is on Eliquis. 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 EEG on 11/10/19 showed no epileptiform discharges, slowing of background. Past Medical History Cardiovascular: HTN CENTRAL NERVOUS SYSTEM: CVA, Seizure GI: GERD Past Surgical History Past Surgical History: Other (AAA) Family History Family History: No pertinent hx Social History Social History , no tobacco or alcohol Current Medications Current Medications Current Medications Lorazepam (Ativan Inj) 2 mg 1X ONCE IVP Last administered on 06/29/20at 10:14; Start 06/29/20 at 10:00; Stop 06/29/20 at 10:01; Status DC Lorazepam (Ativan Inj) 2 mg STK-MED ONCE .ROUTE ; Start 06/29/20 at 09:45; Stop 06/29/20 at 09:45; Status DC Levetiracetam 500 mg/Dextrose 105 ml @ 420 mls/hr 1X ONCE IV Last administered on 06/29/20at 10:30; Start 06/29/20 at 10:30; Stop 06/29/20 at 10:44; Status DC Magnesium Sulfate/ Dextrose 100 ml @ 100 mls/hr 1X ONCE IV Last administered on 06/29/20at 11:02; Start 06/29/20 at 11:00; Stop 06/29/20 at 11:59; Status DC Levetiracetam 500 mg/Dextrose 105 ml @ 420 mls/hr 1X ONCE IV ; Start 06/29/20 at 11:00; Stop 06/29/20 at 11:14; Status DC Morphine Sulfate (Morphine Sulfate) 1 mg PRN Q1HR PRN IV PAIN; Start 06/29/20 at 11:15 Morphine Sulfate (Morphine Sulfate) 2 mg PRN Q1HR PRN IV PAIN; Start 06/29/20 at 11:15 Lorazepam (Ativan Inj) 2 mg PRN Q15MIN PRN IVP seizure activity; Start 06/29/20 at 11:30 Ondansetron HCl (Zofran) 4 mg PRN Q8HRS PRN IV NAUSEA/VOMITING; Start 06/29/20 at 11:45; Stop 06/30/20 at 11:44 Active Scripts Active Keppra (Levetiracetam) 500 Mg Tablet 500 Mg PO BID 30 Days Metoprolol Tartrate 25 Mg Tablet 25 Mg PO BID 30 Days Reported Amlodipine Besylate 10 Mg Tablet 10 Mg PO DAILY Eliquis (Apixaban) 5 Mg Tablet 5 Mg PO BID Lisinopril 20 Mg Tablet 2 Tab PO DAILY Lipitor (Atorvastatin Calcium) 20 Mg Tablet 1 Tab PO DAILY Allergies Allergies: Coded Allergies: No Known Drug Allergies (Unverified , 09/09/18) ROS Review of System Negative for fever, chills, weight loss, shortness of breath, chest pain, indigestion, hematochezia, melena, and dysuria. Full 14-point review of systems is negative. Physical Exam Physical Examination General: Well-developed, well-nourished white male in no acute distress HEENT: Normocephalic andatraumatic. Temporal arteriespulsatile and nontender. Neck: Supple without bruit, no meningismus Musculoskeletal: Stability:see neurologic. Gait exam:see neurologic. Tone:see neurologic.Strength:see neurologic. Neurological: Mental Status:orientation, memory, attention span/concentration, language, fund of knowledge: alert, follows commands intermittently, no intelligible speech. Cranial Nerves:Pupils equal and reactive to light, extraocular movements areintact. Right homonymous hemianopsia. Facial sensation is normal. There is no facial asymmetry. Vestibulo-ocular reflex is intact. Palate elevates and tongue protrudes in midline. All other cranial related problems are negative except as mentioned before.Reflexes:1+ and symmetric with flexor plantar responses. Motor: Moves right side less than left. Coordination and gait: not cooperative. Sensory: response to pinprick in all extremities. Vitals VITALS Vital Signs Date Time Temp Pulse Resp B/P (MAP) Pulse Ox O2 Delivery O2 Flow Rate FiO2 06/29/20 12:00 82 30 100 06/29/20 09:40 215/135 (161) Nasal Cannula 3.0 Labs Labs Laboratory Tests Test 06/29/20 09:43 White Blood Count 9.1 x10^3/uL (4.0-11.0) Red Blood Count 5.22 x10^6/uL (4.30-5.70) Hemoglobin 13.5 g/dL (13.0-17.5) Hematocrit 42.4 % (39.0-53.0) Mean Corpuscular Volume 81 fL (79-100) Mean Corpuscular Hemoglobin 26 pg (25-35) Mean Corpuscular Hemoglobin Concent 32 g/dL (31-37) Red Cell Distribution Width 16.4 % (11.5-14.5) Platelet Count 265 x10^3/uL (140-400) Neutrophils (%) (Auto) 76 % (31-73) Lymphocytes (%) (Auto) 14 % (24-48) Monocytes (%) (Auto) 8 % (0-9) Eosinophils (%) (Auto) 1 % (0-3) Basophils (%) (Auto) 1 % (0-3) Neutrophils # (Auto) 6.9 x10^3/uL (1.8-7.7) Lymphocytes # (Auto) 1.3 x10^3/uL (1.0-4.8) Monocytes # (Auto) 0.8 x10^3/uL (0.0-1.1) Eosinophils # (Auto) 0.1 x10^3/uL (0.0-0.7) Basophils # (Auto) 0.1 x10^3/uL (0.0-0.2) Prothrombin Time 15.2 SEC (11.7-14.0) Prothromb Time International Ratio 1.2 (0.8-1.1) Activated Partial Thromboplast Time 36 SEC (24-38) Sodium Level 141 mmol/L (136-145) Potassium Level 3.9 mmol/L (3.5-5.1) Chloride Level 101 mmol/L (98-107) Carbon Dioxide Level 26 mmol/L (21-32) Anion Gap 14 (6-14) Blood Urea Nitrogen 15 mg/dL (8-26) Creatinine 1.4 mg/dL (0.7-1.3) Estimated GFR (Cockcroft-Gault) 48.6 BUN/Creatinine Ratio 11 (6-20) Glucose Level 186 mg/dL (70-99) Calcium Level 9.1 mg/dL (8.5-10.1) Magnesium Level 1.7 mg/dL (1.8-2.4) Total Bilirubin 1.0 mg/dL (0.2-1.0) Aspartate Amino Transf (AST/SGOT) 16 U/L (15-37) Alanine Aminotransferase (ALT/SGPT) 16 U/L (16-63) Alkaline Phosphatase 141 U/L (46-116) Creatine Kinase 84 U/L (39-308) Troponin I Quantitative < 0.017 ng/mL (0.000-0.055) QK-Cfo-J-Type Natriuretic Peptide 3995 pg/mL (0-449) Total Protein 7.8 g/dL (6.4-8.2) Albumin 3.5 g/dL (3.4-5.0) Albumin/Globulin Ratio 0.8 (1.0-1.7) Laboratory Tests Test 06/29/20 09:43 White Blood Count 9.1 x10^3/uL (4.0-11.0) Red Blood Count 5.22 x10^6/uL (4.30-5.70) Hemoglobin 13.5 g/dL (13.0-17.5) Hematocrit 42.4 % (39.0-53.0) Mean Corpuscular Volume 81 fL (79-100) Mean Corpuscular Hemoglobin 26 pg (25-35) Mean Corpuscular Hemoglobin Concent 32 g/dL (31-37) Red Cell Distribution Width 16.4 % (11.5-14.5) Platelet Count 265 x10^3/uL (140-400) Neutrophils (%) (Auto) 76 % (31-73) Lymphocytes (%) (Auto) 14 % (24-48) Monocytes (%) (Auto) 8 % (0-9) Eosinophils (%) (Auto) 1 % (0-3) Basophils (%) (Auto) 1 % (0-3) Neutrophils # (Auto) 6.9 x10^3/uL (1.8-7.7) Lymphocytes # (Auto) 1.3 x10^3/uL (1.0-4.8) Monocytes # (Auto) 0.8 x10^3/uL (0.0-1.1) Eosinophils # (Auto) 0.1 x10^3/uL (0.0-0.7) Basophils # (Auto) 0.1 x10^3/uL (0.0-0.2) Prothrombin Time 15.2 SEC (11.7-14.0) Prothromb Time International Ratio 1.2 (0.8-1.1) Activated Partial Thromboplast Time 36 SEC (24-38) Sodium Level 141 mmol/L (136-145) Potassium Level 3.9 mmol/L (3.5-5.1) Chloride Level 101 mmol/L (98-107) Carbon Dioxide Level 26 mmol/L (21-32) Anion Gap 14 (6-14) Blood Urea Nitrogen 15 mg/dL (8-26) Creatinine 1.4 mg/dL (0.7-1.3) Estimated GFR (Cockcroft-Gault) 48.6 BUN/Creatinine Ratio 11 (6-20) Glucose Level 186 mg/dL (70-99) Calcium Level 9.1 mg/dL (8.5-10.1) Magnesium Level 1.7 mg/dL (1.8-2.4) Total Bilirubin 1.0 mg/dL (0.2-1.0) Aspartate Amino Transf (AST/SGOT) 16 U/L (15-37) Alanine Aminotransferase (ALT/SGPT) 16 U/L (16-63) Alkaline Phosphatase 141 U/L (46-116) Creatine Kinase 84 U/L (39-308) Troponin I Quantitative < 0.017 ng/mL (0.000-0.055) PC-Bdi-V-Type Natriuretic Peptide 3995 pg/mL (0-449) Total Protein 7.8 g/dL (6.4-8.2) Albumin 3.5 g/dL (3.4-5.0) Albumin/Globulin Ratio 0.8 (1.0-1.7) Images Images CT head and cervical spine without contrast History: Headaches, seizure Technique: Noncontrast CT imaging was performed of the head and cervical spine. Multiplanar reconstruction images are submitted. Exposure: One or more of the following individualized dose reduction techniques were utilized for this examination: 1. Automated exposure control 2. Adjustment of the mA and/or kV according to patient size 3. Use of iterative reconstruction technique. Head CT Comparison: November 24, 2019 Findings: Patient's head is somewhat tilted in the gantry during exam. No convincing acute extra-axial or parenchymal hemorrhage is identified. There is no significant intra-axial mass effect, midline shift, or extra-axial fluid collection. The mansfield-white differentiation of the major vascular territories is preserved. There is again old left basal ganglia lacunar infarct. The ventricles, sulci, and cisterns are within normal limits in size and configuration. The mastoid air cells and the visualized paranasal sinuses are aerated. There is no significant focal calvarial abnormality. There is atherosclerotic calcification of the carotid siphons and intradural vertebral arteries bilaterally. Impression: 1. No convincing acute intracranial abnormality is identified. There is again old left basal ganglia lacunar infarct. Cervical spine CT Comparison: Reconstruction images from neck CTA November 09, 2019 Findings: No acute cervical spine fracture is identified. Vertebral body stature is unchanged. There is a large focus of gas in the left C6 vertebral body as seen previously likely related to Schmorl's node. There is very mild grade 1 anterior spondylolisthesis C4-5 and very minimal posterior subluxation C5 relative to C6. There is moderate to severe degenerative disc disease at C5-6 and C6-7, also spondylosis at these levels. No significant cervical spinal stenosis is identified on this nonmyelographic exam. Atlanto-axial distance is within normal limits. There is degree of atlantoaxial rotatory subluxation. There is appropriate alignment of lateral masses of C1 relative to C2. Occipital condylar-C1 relationship is maintained. There is multilevel facet degenerative change, also some variable uncovertebral degenerative change. There is at least mild bilateral C3-4 neural foramina compromise. There is fairly severe narrowing of the left C4-5 neural foramen. There is also moderate to severe bilateral C5-6 and left C6-7 neural foramina compromise. There is mild cervical dextroscoliosis. There is some atherosclerotic calcification of the carotid arteries in the neck bilaterally. Impression: 1. No acute cervical spine fracture is identified. There is degree of atlantoaxial rotatory subluxation. 2. There is multilevel cervical neural foramina compromise due to facet and uncovertebral degenerative change. 3. There is degenerative disc disease and spondylosis greatest at C5-6 and C7. 4. There is mild abnormal alignment as stated, multilevel facet degenerative change. Assessment/Plan Assessment/Plan Impression: Breakthrough seizure, posted to confusion, he also received sedation History of strokes History of right carotid artery occlusion and other intracranial abnormalities as detailed above. I doubt he's had a new stroke, he is on eloquence and not a candidate for alteplase, anyway Recommendations: Observation Continue levetiracetam Consider repeat MRI study tomorrow if he is no better Repeating EEG and CT angiogram would not aid with management. Thank you for letting me help with the patient's care. HAILY SHEETS MD Jun 29, 2020 13:11
[2020-06-29] MEDS: METOPROLOL TART IMMED RELEASE 25 MG TABLET. PO SCH ×2 (14:30→20:37)
[2020-06-29] MEDS: APIXABAN 5 MG TABLET. PO SCH ×2 (14:30→20:37)
[2020-06-29] MEDS: amLODIPine BESYLATE 10 MG TABLET PO SCH (14:30)
[2020-06-29 15:00] VITALS: BP 203/110
[2020-06-29] MEDS ORDERED: HYDR-2867 PO (15:41)
[2020-06-29] MEDS ORDERED: SERT50TA PO (15:41)
[2020-06-29 15:44] VITALS: BP 176/89
[2020-06-29 19:00] VITALS: BP 181/96
[2020-06-29 19:20] LABS: BILIRUBIN,URINE NEGATIVE (NEG); CLARITY,URINE CLOUDY; COLOR,URINE YELLOW; NITRITE,URINE POSITIVE (NEG); PROTEIN,URINE 100 mg/dL (NEG-TRACE)
[2020-06-29 19:25] LABS: BACTERIA,URINE MOD /HPF (0-FEW); BARBITURATES POS (NEG); BENZODIAZEPINES NEG (NEG); CANNABINOIDS NEG (NEG); COCAINE NEG (NEG); METHADONE NEG (NEG); OPIATES NEG (NEG); PHENCYCLIDINE NEG (NEG); RBC,URINE 20-40 /HPF (0-2)
[2020-06-29 19:26] LABS: AMPHETAMINE/METHAMPHETAMINE NEG (NEG); HYALINE CASTS, URINE FEW /HPF; SQUAMOUS EPITHELIAL CELL,UR MOD /LPF
[2020-06-29] MEDS: levETIRAcetam 500 MG in IV DEXTROSE 5% 100ML 100 ML IV SCH (20:34)
[2020-06-29] MEDS: ATORVASTATIN CALCIUM 20 MG TABLET PO SCH (20:36)
[2020-06-29 23:00] VITALS: BP 172/83
[2020-06-30 03:00] VITALS: BP 176/73
[2020-06-30 07:00] VITALS: BP 172/98
[2020-06-30 07:21] LABS: BASO % 1 % (0-3); EOS % 1 % (0-3); LYMPH # 0.5 x10^3/uL (1.0-4.8); LYMPH % 8 % (24-48); MEAN CORPUSCULAR HEMOGLOBIN 26 pg (25-35); MEAN CORPUSCULAR HGB CONC 32 g/dL (31-37); MEAN CORPUSCULAR VOLUME 81 fL (79-100); MONO # 0.7 x10^3/uL (0.0-1.1); MONO % 11 % (0-9); NEUT # 5.2 x10^3/uL (1.8-7.7); NEUT % 79 % (31-73); PLATELET COUNT 195 x10^3/uL (140-400); RED BLOOD COUNT 4.59 x10^6/uL (4.30-5.70); RED CELL DISTRIBUTION WIDTH 16.7 % (11.5-14.5); WHITE BLOOD COUNT 6.6 x10^3/uL (4.0-11.0)
[2020-06-30 07:33] LABS: CALCIUM 8.9 mg/dL (8.5-10.1); CREATININE 1.2 mg/dL (0.7-1.3); GFR 58.1; POTASSIUM 3.8 mmol/L (3.5-5.1)
[2020-06-30 07:36] LABS: MAGNESIUM 2.1 mg/dL (1.8-2.4); PHOSPHORUS 2.8 mg/dL (2.6-4.7)
--- NOTE | 2020-06-30 08:25 | PDOC ---
[facility] PROGRESS NOTE Date of Service DOS: DATE: 06/30/20 TIME: 08:25 Chief Complaint Chief Complaint A/P: Seizure Vasomotor nephropathy Metabolic encephalopathy: improved H/o right occipital infarct with past CVA Carotid artery disease with chronically occluded GORDON AFIB - likely chronic, rate controlled. takes eliquis at home. EF nml. Accelerated HTN Hx of AAA with repair Nontraumatic fall: He was here in October with new seizure, found to have a subacute right occipital infarct and hypertensive encephalopathy. He has atrial fibrillation and is on Eliquis. 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 EEG on 11/10/19 showed no epileptiform discharges, slowing of background. History of Present Illness History of Present Illness Mr Cooney is a 80-year-old male with past medical history of seizure, CVA, A. fib, who presents to the ER after a witnessed seizure and fall this morning with head injury. History was obtained from patient's due to postictal state. Per patient's he was in his normal state of health when she heard a fall around 9:00 this morning and witnessed seizure-like activity, so she contacted EMS. Patient's expresses some concern about medication compliance. She states that he is on blood thinners due to a history of A. fib This morning he is more alert he is no acute problems. Vitals/I&O Vitals/I&O: Vital Signs Date Time Temp Pulse Resp B/P (MAP) Pulse Ox O2 Delivery O2 Flow Rate FiO2 06/30/20 03:00 98.8 66 18 176/73 (107) 93 98.8 06/29/20 20:00 Room Air 06/29/20 15:00 3.0 I & O 06/29/20 06/29/20 06/30/20 15:00 23:00 07:00 Intake Total 200 ml 105 ml 0 ml Output Total 200 ml Balance 200 ml 105 ml -200 ml Physical Exam General: Alert, Cooperative, No acute distress Lungs: Clear Abdomen: Normal bowel sounds, Soft Extremities: No clubbing, No cyanosis, No edema Skin: No rashes, No significant lesion Labs Labs: Laboratory Tests Test 06/29/20 09:43 06/29/20 19:11 06/30/20 06:50 White Blood Count 9.1 x10^3/uL (4.0-11.0) 6.6 x10^3/uL (4.0-11.0) Red Blood Count 5.22 x10^6/uL (4.30-5.70) 4.59 x10^6/uL (4.30-5.70) Hemoglobin 13.5 g/dL (13.0-17.5) 12.0 g/dL (13.0-17.5) Hematocrit 42.4 % (39.0-53.0) 37.0 % (39.0-53.0) Mean Corpuscular Volume 81 fL (79-100) 81 fL (79-100) Mean Corpuscular Hemoglobin 26 pg (25-35) 26 pg (25-35) Mean Corpuscular Hemoglobin Concent 32 g/dL (31-37) 32 g/dL (31-37) Red Cell Distribution Width 16.4 % (11.5-14.5) 16.7 % (11.5-14.5) Platelet Count 265 x10^3/uL (140-400) 195 x10^3/uL (140-400) Neutrophils (%) (Auto) 76 % (31-73) 79 % (31-73) Lymphocytes (%) (Auto) 14 % (24-48) 8 % (24-48) Monocytes (%) (Auto) 8 % (0-9) 11 % (0-9) Eosinophils (%) (Auto) 1 % (0-3) 1 % (0-3) Basophils (%) (Auto) 1 % (0-3) 1 % (0-3) Neutrophils # (Auto) 6.9 x10^3/uL (1.8-7.7) 5.2 x10^3/uL (1.8-7.7) Lymphocytes # (Auto) 1.3 x10^3/uL (1.0-4.8) 0.5 x10^3/uL (1.0-4.8) Monocytes # (Auto) 0.8 x10^3/uL (0.0-1.1) 0.7 x10^3/uL (0.0-1.1) Eosinophils # (Auto) 0.1 x10^3/uL (0.0-0.7) 0.0 x10^3/uL (0.0-0.7) Basophils # (Auto) 0.1 x10^3/uL (0.0-0.2) 0.0 x10^3/uL (0.0-0.2) Prothrombin Time 15.2 SEC (11.7-14.0) Prothromb Time International Ratio 1.2 (0.8-1.1) Activated Partial Thromboplast Time 36 SEC (24-38) Sodium Level 141 mmol/L (136-145) 140 mmol/L (136-145) Potassium Level 3.9 mmol/L (3.5-5.1) 3.8 mmol/L (3.5-5.1) Chloride Level 101 mmol/L (98-107) 102 mmol/L (98-107) Carbon Dioxide Level 26 mmol/L (21-32) 32 mmol/L (21-32) Anion Gap 14 (6-14) 6 (6-14) Blood Urea Nitrogen 15 mg/dL (8-26) 16 mg/dL (8-26) Creatinine 1.4 mg/dL (0.7-1.3) 1.2 mg/dL (0.7-1.3) Estimated GFR (Cockcroft-Gault) 48.6 58.1 BUN/Creatinine Ratio 11 (6-20) Glucose Level 186 mg/dL (70-99) 96 mg/dL (70-99) Calcium Level 9.1 mg/dL (8.5-10.1) 8.9 mg/dL (8.5-10.1) Magnesium Level 1.7 mg/dL (1.8-2.4) 2.1 mg/dL (1.8-2.4) Total Bilirubin 1.0 mg/dL (0.2-1.0) Aspartate Amino Transf (AST/SGOT) 16 U/L (15-37) Alanine Aminotransferase (ALT/SGPT) 16 U/L (16-63) Alkaline Phosphatase 141 U/L (46-116) Creatine Kinase 84 U/L (39-308) Troponin I Quantitative < 0.017 ng/mL (0.000-0.055) OP-Iua-P-Type Natriuretic Peptide 3995 pg/mL (0-449) Total Protein 7.8 g/dL (6.4-8.2) Albumin 3.5 g/dL (3.4-5.0) Albumin/Globulin Ratio 0.8 (1.0-1.7) Urine Collection Type Unknown Urine Color Yellow Urine Clarity Cloudy Urine pH 6.0 (<5.0-8.0) Urine Specific [place] 1.015 (1.000-1.030) Urine Protein 100 mg/dL (NEG-TRACE) Urine Glucose (UA) Negative mg/dL (NEG) Urine Ketones (Stick) Negative mg/dL (NEG) Urine Blood Large (NEG) Urine Nitrite Positive (NEG) Urine Bilirubin Negative (NEG) Urine Urobilinogen Dipstick 1.0 mg/dL (0.2 mg/dL) Urine Leukocyte Esterase Trace (NEG) Urine RBC 20-40 /HPF (0-2) Urine WBC 1-4 /HPF (0-4) Urine Squamous Epithelial Cells Mod /LPF Urine Bacteria Mod /HPF (0-FEW) Urine Hyaline Casts Few /HPF Urine Mucus Mod /LPF Urine Opiates Screen Neg (NEG) Urine Methadone Screen Neg (NEG) Urine Barbiturates Pos (NEG) Urine Phencyclidine Screen Neg (NEG) Urine Amphetamine/Methamphetamine Neg (NEG) Urine Benzodiazepines Screen Neg (NEG) Urine Cocaine Screen Neg (NEG) Urine Cannabinoids Screen Neg (NEG) Urine Ethyl Alcohol Neg (NEG) Phosphorus Level 2.8 mg/dL (2.6-4.7) Assessment and Plan Assessmemt and Plan Problems Medical Problems: (1) Hypertension Status: Acute Comment Review of Relevant I have reviewed the following items surinder (where applicable) has been applied. Medications: Current Medications Medications (Trade) Dose Ordered Sig/Margie Route PRN Reason Start Time Stop Time Status Last Admin Dose Admin Lorazepam (Ativan Inj) 2 mg 1X ONCE IVP 06/29/20 10:00 06/29/20 10:01 DC 06/29/20 10:14 Levetiracetam 500 mg/Dextrose 105 ml @ 420 mls/hr 1X ONCE IV 06/29/20 10:30 06/29/20 10:44 DC 06/29/20 10:30 Magnesium Sulfate/ Dextrose 100 ml @ 100 mls/hr 1X ONCE IV 06/29/20 11:00 06/29/20 11:59 DC 06/29/20 11:02 Levetiracetam 500 mg/Dextrose 105 ml @ 420 mls/hr Q12HR IV 06/29/20 21:00 06/29/20 20:34 Apixaban (Eliquis) 5 mg BID PO 06/29/20 14:30 06/29/20 20:37 Atorvastatin Calcium (Lipitor) 20 mg QHS PO 06/29/20 21:00 06/29/20 20:36 Metoprolol Tartrate (Lopressor) 25 mg BID PO 06/29/20 14:30 06/29/20 20:37 Justifications for Admission Other Justification ANDREW HILARIO MD Jun 30, 2020 08:25
[2020-06-30] MEDS: APIXABAN 5 MG TABLET. PO SCH ×2 (08:34→22:08)
[2020-06-30] MEDS: amLODIPine BESYLATE 10 MG TABLET PO SCH (08:35)
[2020-06-30] MEDS: METOPROLOL TART IMMED RELEASE 25 MG TABLET. PO SCH ×2 (08:35→22:10)
[2020-06-30] MEDS: levETIRAcetam 500 MG in IV DEXTROSE 5% 100ML 100 ML IV SCH (08:36)
[2020-06-30 11:00] VITALS: BP 120/67
[2020-06-30] MEDS ORDERED: LEVE750T8 PO (12:37)
--- NOTE | 2020-06-30 12:40 | PDOC ---
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 Levetiracetam levels are usually unhelpful because of the wide therapeutic range Okay for discharge Follow-up with me in 4-8 weeks Subjective No complaints, wants to go home Objective Vital Signs Date Time Temp Pulse Resp B/P (MAP) Pulse Ox O2 Delivery O2 Flow Rate FiO2 06/30/20 11:00 97.7 60 18 120/67 (84) 97.7 06/30/20 08:00 Room Air 06/30/20 07:00 94 06/29/20 15:00 3.0 Intake and Output 06/30/20 07:00 Intake Total 305 ml Output Total 200 ml Balance 105 ml Intake Oral 0 ml IV Total 305 ml Output Urine/Stool Mix 200 ml # Voids 2 # Bowel Movements 1 PHYSICAL EXAM Alert. Oriented to time, place and person. PERRL. EOMI. CN: no focal findings. Muscle tone: normal. Muscle strength: 4/5 DTR: 1+ Plantar reflex: flexor Gait: unsteady. Sensory exam: no abnormalities Review of Relevant I have reviewed the following items surinder (where applicable) has been applied. Labs Laboratory Tests Test 06/29/20 09:43 06/29/20 19:11 06/30/20 06:50 White Blood Count 9.1 x10^3/uL (4.0-11.0) 6.6 x10^3/uL (4.0-11.0) Red Blood Count 5.22 x10^6/uL (4.30-5.70) 4.59 x10^6/uL (4.30-5.70) Hemoglobin 13.5 g/dL (13.0-17.5) 12.0 g/dL (13.0-17.5) Hematocrit 42.4 % (39.0-53.0) 37.0 % (39.0-53.0) Mean Corpuscular Volume 81 fL (79-100) 81 fL (79-100) Mean Corpuscular Hemoglobin 26 pg (25-35) 26 pg (25-35) Mean Corpuscular Hemoglobin Concent 32 g/dL (31-37) 32 g/dL (31-37) Red Cell Distribution Width 16.4 % (11.5-14.5) 16.7 % (11.5-14.5) Platelet Count 265 x10^3/uL (140-400) 195 x10^3/uL (140-400) Neutrophils (%) (Auto) 76 % (31-73) 79 % (31-73) Lymphocytes (%) (Auto) 14 % (24-48) 8 % (24-48) Monocytes (%) (Auto) 8 % (0-9) 11 % (0-9) Eosinophils (%) (Auto) 1 % (0-3) 1 % (0-3) Basophils (%) (Auto) 1 % (0-3) 1 % (0-3) Neutrophils # (Auto) 6.9 x10^3/uL (1.8-7.7) 5.2 x10^3/uL (1.8-7.7) Lymphocytes # (Auto) 1.3 x10^3/uL (1.0-4.8) 0.5 x10^3/uL (1.0-4.8) Monocytes # (Auto) 0.8 x10^3/uL (0.0-1.1) 0.7 x10^3/uL (0.0-1.1) Eosinophils # (Auto) 0.1 x10^3/uL (0.0-0.7) 0.0 x10^3/uL (0.0-0.7) Basophils # (Auto) 0.1 x10^3/uL (0.0-0.2) 0.0 x10^3/uL (0.0-0.2) Prothrombin Time 15.2 SEC (11.7-14.0) Prothromb Time International Ratio 1.2 (0.8-1.1) Activated Partial Thromboplast Time 36 SEC (24-38) Sodium Level 141 mmol/L (136-145) 140 mmol/L (136-145) Potassium Level 3.9 mmol/L (3.5-5.1) 3.8 mmol/L (3.5-5.1) Chloride Level 101 mmol/L (98-107) 102 mmol/L (98-107) Carbon Dioxide Level 26 mmol/L (21-32) 32 mmol/L (21-32) Anion Gap 14 (6-14) 6 (6-14) Blood Urea Nitrogen 15 mg/dL (8-26) 16 mg/dL (8-26) Creatinine 1.4 mg/dL (0.7-1.3) 1.2 mg/dL (0.7-1.3) Estimated GFR (Cockcroft-Gault) 48.6 58.1 BUN/Creatinine Ratio 11 (6-20) Glucose Level 186 mg/dL (70-99) 96 mg/dL (70-99) Calcium Level 9.1 mg/dL (8.5-10.1) 8.9 mg/dL (8.5-10.1) Magnesium Level 1.7 mg/dL (1.8-2.4) 2.1 mg/dL (1.8-2.4) Total Bilirubin 1.0 mg/dL (0.2-1.0) Aspartate Amino Transf (AST/SGOT) 16 U/L (15-37) Alanine Aminotransferase (ALT/SGPT) 16 U/L (16-63) Alkaline Phosphatase 141 U/L (46-116) Creatine Kinase 84 U/L (39-308) Troponin I Quantitative < 0.017 ng/mL (0.000-0.055) [id number] Natriuretic Peptide 3995 pg/mL (0-449) Total Protein 7.8 g/dL (6.4-8.2) Albumin 3.5 g/dL (3.4-5.0) Albumin/Globulin Ratio 0.8 (1.0-1.7) Urine Collection Type Unknown Urine Color Yellow Urine Clarity Cloudy Urine pH 6.0 (<5.0-8.0) Urine Specific [place] 1.015 (1.000-1.030) Urine Protein 100 mg/dL (NEG-TRACE) Urine Glucose (UA) Negative mg/dL (NEG) Urine Ketones (Stick) Negative mg/dL (NEG) Urine Blood Large (NEG) Urine Nitrite Positive (NEG) Urine Bilirubin Negative (NEG) Urine Urobilinogen Dipstick 1.0 mg/dL (0.2 mg/dL) Urine Leukocyte Esterase Trace (NEG) Urine RBC 20-40 /HPF (0-2) Urine WBC 1-4 /HPF (0-4) Urine Squamous Epithelial Cells Mod /LPF Urine Bacteria Mod /HPF (0-FEW) Urine Hyaline Casts Few /HPF Urine Mucus Mod /LPF Urine Opiates Screen Neg (NEG) Urine Methadone Screen Neg (NEG) Urine Barbiturates Pos (NEG) Urine Phencyclidine Screen Neg (NEG) Urine Amphetamine/Methamphetamine Neg (NEG) Urine Benzodiazepines Screen Neg (NEG) Urine Cocaine Screen Neg (NEG) Urine Cannabinoids Screen Neg (NEG) Urine Ethyl Alcohol Neg (NEG) Phosphorus Level 2.8 mg/dL (2.6-4.7) Laboratory Tests Test 06/29/20 19:11 06/30/20 06:50 Urine Collection Type Unknown Urine Color Yellow Urine Clarity Cloudy Urine pH 6.0 (<5.0-8.0) Urine Specific [place] 1.015 (1.000-1.030) Urine Protein 100 mg/dL (NEG-TRACE) Urine Glucose (UA) Negative mg/dL (NEG) Urine Ketones (Stick) Negative mg/dL (NEG) Urine Blood Large (NEG) Urine Nitrite Positive (NEG) Urine Bilirubin Negative (NEG) Urine Urobilinogen Dipstick 1.0 mg/dL (0.2 mg/dL) Urine Leukocyte Esterase Trace (NEG) Urine RBC 20-40 /HPF (0-2) Urine WBC 1-4 /HPF (0-4) Urine Squamous Epithelial Cells Mod /LPF Urine Bacteria Mod /HPF (0-FEW) Urine Hyaline Casts Few /HPF Urine Mucus Mod /LPF Urine Opiates Screen Neg (NEG) Urine Methadone Screen Neg (NEG) Urine Barbiturates Pos (NEG) Urine Phencyclidine Screen Neg (NEG) Urine Amphetamine/Methamphetamine Neg (NEG) Urine Benzodiazepines Screen Neg (NEG) Urine Cocaine Screen Neg (NEG) Urine Cannabinoids Screen Neg (NEG) Urine Ethyl Alcohol Neg (NEG) White Blood Count 6.6 x10^3/uL (4.0-11.0) Red Blood Count 4.59 x10^6/uL (4.30-5.70) Hemoglobin 12.0 g/dL (13.0-17.5) Hematocrit 37.0 % (39.0-53.0) Mean Corpuscular Volume 81 fL (79-100) Mean Corpuscular Hemoglobin 26 pg (25-35) Mean Corpuscular Hemoglobin Concent 32 g/dL (31-37) Red Cell Distribution Width 16.7 % (11.5-14.5) Platelet Count 195 x10^3/uL (140-400) Neutrophils (%) (Auto) 79 % (31-73) Lymphocytes (%) (Auto) 8 % (24-48) Monocytes (%) (Auto) 11 % (0-9) Eosinophils (%) (Auto) 1 % (0-3) Basophils (%) (Auto) 1 % (0-3) Neutrophils # (Auto) 5.2 x10^3/uL (1.8-7.7) Lymphocytes # (Auto) 0.5 x10^3/uL (1.0-4.8) Monocytes # (Auto) 0.7 x10^3/uL (0.0-1.1) Eosinophils # (Auto) 0.0 x10^3/uL (0.0-0.7) Basophils # (Auto) 0.0 x10^3/uL (0.0-0.2) Sodium Level 140 mmol/L (136-145) Potassium Level 3.8 mmol/L (3.5-5.1) Chloride Level 102 mmol/L (98-107) Carbon Dioxide Level 32 mmol/L (21-32) Anion Gap 6 (6-14) Blood Urea Nitrogen 16 mg/dL (8-26) Creatinine 1.2 mg/dL (0.7-1.3) Estimated GFR (Cockcroft-Gault) 58.1 Glucose Level 96 mg/dL (70-99) Calcium Level 8.9 mg/dL (8.5-10.1) Phosphorus Level 2.8 mg/dL (2.6-4.7) Magnesium Level 2.1 mg/dL (1.8-2.4) Medications Current Medications Lorazepam (Ativan Inj) 2 mg 1X ONCE IVP Last administered on 06/29/20at 10:14; Start 06/29/20 at 10:00; Stop 06/29/20 at 10:01; Status DC Lorazepam (Ativan Inj) 2 mg STK-MED ONCE .ROUTE ; Start 06/29/20 at 09:45; Stop 06/29/20 at 09:45; Status DC Levetiracetam 500 mg/Dextrose 105 ml @ 420 mls/hr 1X ONCE IV Last administered on 06/29/20at 10:30; Start 06/29/20 at 10:30; Stop 06/29/20 at 10:44; Status DC Magnesium Sulfate/ Dextrose 100 ml @ 100 mls/hr 1X ONCE IV Last administered on 06/29/20at 11:02; Start 06/29/20 at 11:00; Stop 06/29/20 at 11:59; Status DC Levetiracetam 500 mg/Dextrose 105 ml @ 420 mls/hr 1X ONCE IV ; Start 06/29/20 at 11:00; Stop 06/29/20 at 11:14; Status DC Morphine Sulfate (Morphine Sulfate) 1 mg PRN Q1HR PRN IV MODERATE PAIN; Start 06/29/20 at 11:15 Morphine Sulfate (Morphine Sulfate) 2 mg PRN Q1HR PRN IV SEVERE PAIN; Start 06/29/20 at 11:15 Lorazepam (Ativan Inj) 2 mg PRN Q15MIN PRN IVP seizure activity; Start 06/29/20 at 11:30 Ondansetron HCl (Zofran) 4 mg PRN Q8HRS PRN IV NAUSEA/VOMITING; Start 06/29/20 at 11:45; Stop 06/30/20 at 11:44; Status DC Levetiracetam 500 mg/Dextrose 105 ml @ 420 mls/hr Q12HR IV Last administered on 06/30/20at 08:36; Start 06/29/20 at 21:00 Amlodipine Besylate (Norvasc) 10 mg DAILY PO Last administered on 06/30/20at 08:35; Start 06/29/20 at 14:30 Apixaban (Eliquis) 5 mg BID PO Last administered on 06/30/20at 08:34; Start 06/29/20 at 14:30 Atorvastatin Calcium (Lipitor) 20 mg QHS PO Last administered on 06/29/20at 20:36; Start 06/29/20 at 21:00 Metoprolol Tartrate (Lopressor) 25 mg BID PO Last administered on 06/30/20at 08:35; Start 06/29/20 at 14:30 Active Scripts Active Keppra (Levetiracetam) 500 Mg Tablet 500 Mg PO BID 30 Days Metoprolol Tartrate 25 Mg Tablet 25 Mg PO BID 30 Days Reported Hydralazine Hcl 10 Mg Tablet 2 Tab PO TID Zoloft (Sertraline Hcl) 50 Mg Tablet 1 Tab PO DAILY Amlodipine Besylate 10 Mg Tablet 10 Mg PO DAILY Eliquis (Apixaban) 5 Mg Tablet 5 Mg PO BID Lisinopril 20 Mg Tablet 2 Tab PO DAILY Lipitor (Atorvastatin Calcium) 20 Mg Tablet 1 Tab PO DAILY Vitals/I & O Vital Sign - Last 24 Hours 06/29/20 06/29/20 06/29/20 06/29/20 13:51 15:00 15:44 19:00 Temp 97.8 99.4 97.8 99.4 Pulse 83 80 Resp 18 18 B/P (MAP) 203/110 (141) 176/89 (118) 181/96 (124) Pulse Ox 100 99 O2 Delivery Room Air Nasal Cannula O2 Flow Rate 3.0 06/29/20 06/29/20 06/29/20 06/30/20 20:00 20:37 23:00 03:00 Temp 98.8 98.8 98.8 98.8 Pulse 88 69 66 Resp 18 18 B/P (MAP) 168/84 172/83 (112) 176/73 (107) Pulse Ox 95 93 O2 Delivery Room Air 06/30/20 06/30/20 06/30/20 06/30/20 07:00 08:00 08:35 08:35 Temp 97.9 97.9 Pulse 72 72 72 Resp 18 B/P (MAP) 172/98 (122) 172/98 172/98 Pulse Ox 94 O2 Delivery Room Air 06/30/20 11:00 Temp 97.7 97.7 Pulse 60 Resp 18 B/P (MAP) 120/67 (84) Intake and Output 06/29/20 06/29/20 06/30/20 15:00 23:00 07:00 Intake Total 200 ml 105 ml 0 ml Output Total 200 ml Balance 200 ml 105 ml -200 ml Justicifation of Admission Dx: Justifications for Admission: Justification of Admission Dx: N/A HAILY SHEETS MD Jun 30, 2020 12:40
--- NOTE | 2020-06-30 12:40 | PDOC3 ---
Discharge Summary Visit Information Date of Admission: Jun 29, 2020 Date of Discharge: Jun 30, 2020 Admitting Diagnosis: Seizure Final Diagnosis Problems Medical Problems: (1) Hypertension Status: Acute Brief Hospital Course Allergies Allergies Coded Allergies Type Severity Reaction Last Updated Verified No Known Drug Allergies 09/09/18 No Vital Signs Vital Signs Date Time Temp Pulse Resp B/P (MAP) Pulse Ox O2 Delivery O2 Flow Rate FiO2 06/30/20 11:00 97.7 60 18 120/67 (84) 97.7 06/30/20 08:00 Room Air 06/30/20 07:00 94 06/29/20 15:00 3.0 Lab Results Laboratory Tests Test 06/29/20 09:43 06/29/20 19:11 06/30/20 06:50 White Blood Count 9.1 x10^3/uL (4.0-11.0) 6.6 x10^3/uL (4.0-11.0) Red Blood Count 5.22 x10^6/uL (4.30-5.70) 4.59 x10^6/uL (4.30-5.70) Hemoglobin 13.5 g/dL (13.0-17.5) 12.0 g/dL (13.0-17.5) Hematocrit 42.4 % (39.0-53.0) 37.0 % (39.0-53.0) Mean Corpuscular Volume 81 fL (79-100) 81 fL (79-100) Mean Corpuscular Hemoglobin 26 pg (25-35) 26 pg (25-35) Mean Corpuscular Hemoglobin Concent 32 g/dL (31-37) 32 g/dL (31-37) Red Cell Distribution Width 16.4 % (11.5-14.5) 16.7 % (11.5-14.5) Platelet Count 265 x10^3/uL (140-400) 195 x10^3/uL (140-400) Neutrophils (%) (Auto) 76 % (31-73) 79 % (31-73) Lymphocytes (%) (Auto) 14 % (24-48) 8 % (24-48) Monocytes (%) (Auto) 8 % (0-9) 11 % (0-9) Eosinophils (%) (Auto) 1 % (0-3) 1 % (0-3) Basophils (%) (Auto) 1 % (0-3) 1 % (0-3) Neutrophils # (Auto) 6.9 x10^3/uL (1.8-7.7) 5.2 x10^3/uL (1.8-7.7) Lymphocytes # (Auto) 1.3 x10^3/uL (1.0-4.8) 0.5 x10^3/uL (1.0-4.8) Monocytes # (Auto) 0.8 x10^3/uL (0.0-1.1) 0.7 x10^3/uL (0.0-1.1) Eosinophils # (Auto) 0.1 x10^3/uL (0.0-0.7) 0.0 x10^3/uL (0.0-0.7) Basophils # (Auto) 0.1 x10^3/uL (0.0-0.2) 0.0 x10^3/uL (0.0-0.2) Prothrombin Time 15.2 SEC (11.7-14.0) Prothromb Time International Ratio 1.2 (0.8-1.1) Activated Partial Thromboplast Time 36 SEC (24-38) Sodium Level 141 mmol/L (136-145) 140 mmol/L (136-145) Potassium Level 3.9 mmol/L (3.5-5.1) 3.8 mmol/L (3.5-5.1) Chloride Level 101 mmol/L (98-107) 102 mmol/L (98-107) Carbon Dioxide Level 26 mmol/L (21-32) 32 mmol/L (21-32) Anion Gap 14 (6-14) 6 (6-14) Blood Urea Nitrogen 15 mg/dL (8-26) 16 mg/dL (8-26) Creatinine 1.4 mg/dL (0.7-1.3) 1.2 mg/dL (0.7-1.3) Estimated GFR (Cockcroft-Gault) 48.6 58.1 BUN/Creatinine Ratio 11 (6-20) Glucose Level 186 mg/dL (70-99) 96 mg/dL (70-99) Calcium Level 9.1 mg/dL (8.5-10.1) 8.9 mg/dL (8.5-10.1) Magnesium Level 1.7 mg/dL (1.8-2.4) 2.1 mg/dL (1.8-2.4) Total Bilirubin 1.0 mg/dL (0.2-1.0) Aspartate Amino Transf (AST/SGOT) 16 U/L (15-37) Alanine Aminotransferase (ALT/SGPT) 16 U/L (16-63) Alkaline Phosphatase 141 U/L (46-116) Creatine Kinase 84 U/L (39-308) Troponin I Quantitative < 0.017 ng/mL (0.000-0.055) [id number]-Type Natriuretic Peptide 3995 pg/mL (0-449) Total Protein 7.8 g/dL (6.4-8.2) Albumin 3.5 g/dL (3.4-5.0) Albumin/Globulin Ratio 0.8 (1.0-1.7) Urine Collection Type Unknown Urine Color Yellow Urine Clarity Cloudy Urine pH 6.0 (<5.0-8.0) Urine Specific [place] 1.015 (1.000-1.030) Urine Protein 100 mg/dL (NEG-TRACE) Urine Glucose (UA) Negative mg/dL (NEG) Urine Ketones (Stick) Negative mg/dL (NEG) Urine Blood Large (NEG) Urine Nitrite Positive (NEG) Urine Bilirubin Negative (NEG) Urine Urobilinogen Dipstick 1.0 mg/dL (0.2 mg/dL) Urine Leukocyte Esterase Trace (NEG) Urine RBC 20-40 /HPF (0-2) Urine WBC 1-4 /HPF (0-4) Urine Squamous Epithelial Cells Mod /LPF Urine Bacteria Mod /HPF (0-FEW) Urine Hyaline Casts Few /HPF Urine Mucus Mod /LPF Urine Opiates Screen Neg (NEG) Urine Methadone Screen Neg (NEG) Urine Barbiturates Pos (NEG) Urine Phencyclidine Screen Neg (NEG) Urine Amphetamine/Methamphetamine Neg (NEG) Urine Benzodiazepines Screen Neg (NEG) Urine Cocaine Screen Neg (NEG) Urine Cannabinoids Screen Neg (NEG) Urine Ethyl Alcohol Neg (NEG) Phosphorus Level 2.8 mg/dL (2.6-4.7) Laboratory Tests Test 06/29/20 19:11 06/30/20 06:50 Urine Collection Type Unknown Urine Color Yellow Urine Clarity Cloudy Urine pH 6.0 (<5.0-8.0) Urine Specific [place] 1.015 (1.000-1.030) Urine Protein 100 mg/dL (NEG-TRACE) Urine Glucose (UA) Negative mg/dL (NEG) Urine Ketones (Stick) Negative mg/dL (NEG) Urine Blood Large (NEG) Urine Nitrite Positive (NEG) Urine Bilirubin Negative (NEG) Urine Urobilinogen Dipstick 1.0 mg/dL (0.2 mg/dL) Urine Leukocyte Esterase Trace (NEG) Urine RBC 20-40 /HPF (0-2) Urine WBC 1-4 /HPF (0-4) Urine Squamous Epithelial Cells Mod /LPF Urine Bacteria Mod /HPF (0-FEW) Urine Hyaline Casts Few /HPF Urine Mucus Mod /LPF Urine Opiates Screen Neg (NEG) Urine Methadone Screen Neg (NEG) Urine Barbiturates Pos (NEG) Urine Phencyclidine Screen Neg (NEG) Urine Amphetamine/Methamphetamine Neg (NEG) Urine Benzodiazepines Screen Neg (NEG) Urine Cocaine Screen Neg (NEG) Urine Cannabinoids Screen Neg (NEG) Urine Ethyl Alcohol Neg (NEG) White Blood Count 6.6 x10^3/uL (4.0-11.0) Red Blood Count 4.59 x10^6/uL (4.30-5.70) Hemoglobin 12.0 g/dL (13.0-17.5) Hematocrit 37.0 % (39.0-53.0) Mean Corpuscular Volume 81 fL (79-100) Mean Corpuscular Hemoglobin 26 pg (25-35) Mean Corpuscular Hemoglobin Concent 32 g/dL (31-37) Red Cell Distribution Width 16.7 % (11.5-14.5) Platelet Count 195 x10^3/uL (140-400) Neutrophils (%) (Auto) 79 % (31-73) Lymphocytes (%) (Auto) 8 % (24-48) Monocytes (%) (Auto) 11 % (0-9) Eosinophils (%) (Auto) 1 % (0-3) Basophils (%) (Auto) 1 % (0-3) Neutrophils # (Auto) 5.2 x10^3/uL (1.8-7.7) Lymphocytes # (Auto) 0.5 x10^3/uL (1.0-4.8) Monocytes # (Auto) 0.7 x10^3/uL (0.0-1.1) Eosinophils # (Auto) 0.0 x10^3/uL (0.0-0.7) Basophils # (Auto) 0.0 x10^3/uL (0.0-0.2) Sodium Level 140 mmol/L (136-145) Potassium Level 3.8 mmol/L (3.5-5.1) Chloride Level 102 mmol/L (98-107) Carbon Dioxide Level 32 mmol/L (21-32) Anion Gap 6 (6-14) Blood Urea Nitrogen 16 mg/dL (8-26) Creatinine 1.2 mg/dL (0.7-1.3) Estimated GFR (Cockcroft-Gault) 58.1 Glucose Level 96 mg/dL (70-99) Calcium Level 8.9 mg/dL (8.5-10.1) Phosphorus Level 2.8 mg/dL (2.6-4.7) Magnesium Level 2.1 mg/dL (1.8-2.4) Brief Hospital Course Mr Cooney is a 80-year-old male with past medical history of seizure, CVA, A. fib, who presents to the ER after a witnessed seizure and fall on 06/29 in the morning with head injury. History was obtained from patient's due to postictal state. Per patient's he was in his normal state of health when she heard a fall around 9:00 this morning and witnessed seizure-like activity, so she contacted EMS. Patient's expresses some concern about medication compliance. She states that he is on blood thinners due to a history of A. fib He was here in October with new seizure, found to have a subacute right occipital infarct and hypertensive encephalopathy. He has atrial fibrillation and is on Eliquis. 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 EEG on 11/10/19 showed no epileptiform discharges, slowing of background. This morning he is more alert he is no acute problems. Cr improved 1.1 0.4-1.2, magnesium improved from 1.7-2.1. Physical therapy and Occupational Therapy have recommended senior care however he and his prefer to have home with home health and understand the risks. Neurology is increased Keppra dosing to 750 mg twice daily and he will follow-up. Consults: Neurology Problem list: Seizure Vasomotor nephropathy Metabolic encephalopathy: improved H/o right occipital infarct with past CVA Carotid artery disease with chronically occluded GORDON AFIB - likely chronic, rate controlled. takes eliquis at home. EF nml. Accelerated HTN Hx of AAA with repair Nontraumatic fall Greater than 30 minutes spent on d/c home with home health Discharge Information Condition at Discharge: Improved Follow Up: Weeks (1) Disposition/Orders: D/C to Home w/ HH Scheduled Amlodipine Besylate (Amlodipine Besylate) 10 Mg Tablet, 10 MG PO DAILY, (Reported) Entered as Reported by: JANETH REDD on 11/09/19905 Last Action: Reviewed on 06/29/201540 by RHIANNA WARD Apixaban (Eliquis) 5 Mg Tablet, 5 MG PO BID, (Reported) Entered as Reported by: JANETH REDD on 11/09/19905 Last Action: Reviewed on 06/29/201540 by RHIANNA WARD Atorvastatin Calcium (Lipitor) 20 Mg Tablet, 1 TAB PO DAILY, #90 Ref 1 (Reported) Entered as Reported by: JANETH REDD on 11/09/19905 Last Action: Reviewed on 06/29/201540 by RHIANNA WARD Hydralazine Hcl (Hydralazine Hcl) 10 Mg Tablet, 2 TAB PO TID for HTN, #90 Ref 3 (Reported) Entered as Reported by: RHIANNA WARD on 06/29/201540 Last Taken: UNKNOWN on Unknown Date & Time Last Action: New Order on 06/29/201540 by RHIANNA WARD Levetiracetam (Levetiracetam) 750 Mg Tablet, 750 MG PO BID for Seizures for 90 Days, #180 Ref 1 Prescribed by: ANDREW HILARIO MD on 06/30/20 1237 Lisinopril (Lisinopril) 20 Mg Tablet, 2 TAB PO DAILY, #30 Ref 5 (Reported) Entered as Reported by: JANETH REDD on 11/09/19905 Last Action: Reviewed on 06/29/201540 by RHIANNA WARD Metoprolol Tartrate (Metoprolol Tartrate) 25 Mg Tablet, 25 MG PO BID for CHF for 30 Days, #60 Prescribed by: GEM HATCH MD on 11/13/191216 Last Action: Reviewed on 06/29/201540 by RHIANNA WARD Sertraline Hcl (Zoloft) 50 Mg Tablet, 1 TAB PO DAILY for DEPRESSION, #30 Ref 2 (Reported) Entered as Reported by: RHIANNA WARD on 06/29/201540 Last Taken: UNKNOWN on Unknown Date & Time Last Action: New Order on 06/29/201540 by RHIANNA WARD Discontinued Medications Levetiracetam (Keppra) 500 Mg Tablet, 500 MG PO BID for Seizure disorder for 30 Days, #60 Discontinued Reason: Prescription changed Prescribed by: GEM HATCH MD on 11/13/191216 Last Action: Reviewed on 06/29/201540 by RHIANNA WARD Justicifation of Admission Dx: Justifications for Admission: Justification of Admission Dx: Yes Altered Mental Status: Altered Mental Status ANDREW HILARIO MD Jun 30, 2020 12:40
--- NOTE | 2020-06-30 12:41 | SNU/HH DC ---
DISCHARGE WITH HOME HEALTH DISCHARGE INFORMATION: Discharge Date: Jun 30, 2020 Final Diagnosis: Problems Medical Problems: (1) Hypertension Status: Acute Condition on Discharge: Stable CODE STATUS: Code Status: DNR/DNI HOME HEALTH: Face to Face: I certify this patient is under my care and that I, or a nurse practitioner or physician's real estate administrative assistant working with me, had a face to face encounter that meets the physician face to face encounter requirements with this patient on 06/30/2020. Medical Complications: CVA, Falls RN For Eval/Treatment: Yes Physical Therapy For: Evalulation/Treatment Occupational Therapy For: Evaluation/Treatment Home Health Aide For: Self-care Pt Meets Homebound Status: Fatigue w/ amb., Frequent falls w/ injury, Psychological condition POST DISCHARGE ORDERS: Activity Instructions for Disc: No restrictions Weight Bearing Status after Di: No restrictions DIET AFTER DISCHARGE: Cardiac CERTIFICATION STATEMENT: Certification Statement: Certification Statement: Based on the above finding, I certify that this patient is confined to the home and needs intermittent residential care, physical therapy and/or speech therapy, or continues to need occupational therapy.~ This patient is under my care, and I have initiated the establishment of the plan of care.~ This patient will be followed by myself or a community physician who will periodically review the plan of care. Home Meds Active Scripts Levetiracetam (LEVETIRACETAM) 750 Mg Tablet, 750 MG PO BID for Seizures for 90 Days, #180 TAB 1 Refill Prov:ANDREW HILARIO MD 06/30/20 Metoprolol Tartrate (METOPROLOL TARTRATE) 25 Mg Tablet, 25 MG PO BID for CHF for 30 Days, #60 TAB Prov:GEM HATCH MD 11/13/19 Reported Medications Hydralazine Hcl (HYDRALAZINE HCL) 10 Mg Tablet, 2 TAB PO TID for HTN, #90 TAB 3 Refills 06/29/20 Sertraline Hcl (ZOLOFT) 50 Mg Tablet, 1 TAB PO DAILY for DEPRESSION, #30 TAB 2 Refills 06/29/20 Amlodipine Besylate (AMLODIPINE BESYLATE) 10 Mg Tablet, 10 MG PO DAILY, TAB 11/09/19 Apixaban (ELIQUIS) 5 Mg Tablet, 5 MG PO BID, TAB 11/09/19 Lisinopril (LISINOPRIL) 20 Mg Tablet, 2 TAB PO DAILY, #30 TAB 5 Refills 11/09/19 Atorvastatin Calcium (LIPITOR) 20 Mg Tablet, 1 TAB PO DAILY, #90 TAB 1 Refill 11/09/19 Discontinued Scripts Levetiracetam (KEPPRA) 500 Mg Tablet, 500 MG PO BID for Seizure disorder for 30 Days, #60 TAB Prov:GEM HATCH MD 11/13/19 ANDREW HILARIO MD Jun 30, 2020 12:41
--- NOTE | 2020-06-30 14:30 | NUR ---
SW following. Spoke with RN and reviewed chart. Spoke with . Pt from home with 24 hour care from family. Pt's declined need for SNU but would like HH. Pt on room air and will discharge on oral medications. Pt has a walker at home per the . Pt clear for discharge today. SW completed referral to [facility] per approval from pt's . SW completed patient choice of vendor form. Joelle from [facility] provided with clinicals and discharge orders. Joelle to call pt's to schedule initial HH visit. No further SW needs at this time.
[2020-06-30 15:00] VITALS: BP 103/52
[2020-06-30 19:00] VITALS: BP 197/95
--- NOTE | 2020-06-30 19:33 | NUR ---
PT HERE TO [facility]AL[facility]OR FOR DISCHARGE AT 1845, PT STATES THAT PT IS NOT AT HIS NORMAL BASELINE AND PT C/O OF BEING MORE CONFUSED/DIZZINESS AND NOT FEELING RIGHT. BP WAS CHECKED AND FOUND TO BE 183/106 WITH A HR OF 86, DR. MEYERS NOTIFIED OF PT NOT BEING AT BASELINE AND BP READING WITH PT NOT FEELING RIGHT. ORDER RECEIVED TO CANCEL DISCHARGE FOR TONIGHT AND TO OBSERVE OVERNIGHT.
[2020-06-30] MEDS: levETIRAcetam 500 MG TABLET PO SCH (22:07)
[2020-06-30] MEDS: ATORVASTATIN CALCIUM 20 MG TABLET PO SCH (22:08)
[2020-06-30 23:00] VITALS: BP 178/101
[2020-07-01 03:04] VITALS: BP 156/80
[2020-07-01 04:34] LABS: BASO % 1 % (0-3); EOS # 0.1 x10^3/uL (0.0-0.7); EOS % 1 % (0-3); HEMATOCRIT 36.1 % (39.0-53.0); HEMOGLOBIN 11.6 g/dL (13.0-17.5); LYMPH # 0.7 x10^3/uL (1.0-4.8); LYMPH % 11 % (24-48); MEAN CORPUSCULAR HEMOGLOBIN 26 pg (25-35); MEAN CORPUSCULAR HGB CONC 32 g/dL (31-37); MEAN CORPUSCULAR VOLUME 81 fL (79-100); MONO # 0.7 x10^3/uL (0.0-1.1); MONO % 11 % (0-9); NEUT # 4.7 x10^3/uL (1.8-7.7); NEUT % 77 % (31-73); PLATELET COUNT 210 x10^3/uL (140-400); RED BLOOD COUNT 4.47 x10^6/uL (4.30-5.70); RED CELL DISTRIBUTION WIDTH 16.2 % (11.5-14.5); WHITE BLOOD COUNT 6.2 x10^3/uL (4.0-11.0)
[2020-07-01 04:52] LABS: CALCIUM 9.1 mg/dL (8.5-10.1); CREATININE 1.5 mg/dL (0.7-1.3); GFR 44.9; POTASSIUM 3.4 mmol/L (3.5-5.1)
--- NOTE | 2020-07-01 06:00 | NUR ---
While this nurse was at the nurses station copying paperwork for next shift, bed call light/bed alarm came on as Patient was getting out of bed. This nurse went towards the call light which was louder then bed alarm, noticed that call light indicated Patient's room and new that he was confused and high fall risk turned towards the room and notice assigned SPORTS DEVELOPMENT OFFICER was also racing towards room, heard load noise came from Patient's room, this nurse ran towards room with SPORTS DEVELOPMENT OFFICER, upon entering room noted Patient had pushed bedside commode that was next to his bed towards the wall hard making the loud noise, he was still going towards the floor onto his knees, the left side of his head then scrap on the handle of the Bedside commode causing a small skin tear 1cm x 0cm, cleansed area with wound cleanser, left open to air, V/S done BP 176/81, T 97.0, P 66, R 18, Spo2 97% O2@ 2L/NC, Patient denies any c/o pain/discomfort, when asked what he was doing he stated, "The lights are out and I need to fixed them." reminded him that he was at the Hospital and he said, "Oh! I forgot, I don't remember, I just don't know." assisted him back to bed , neuro checked down and WNL for him, spoke with Dr. Chen regarding the fall, new orders received for CT scan of Head and Cervical Spine, IVF's, called and placed to Emeli, , at [phone] no answer received, left message for her to return call.
[2020-07-01 06:18] VITALS: BP 176/81
[2020-07-01] MEDS ORDERED: POTASSIUM CL 40MEQ D5-0.45NACL 1,000 ML IV SCH (07:30)
[2020-07-01] MEDS ORDERED: POTASSIUM CHLORIDE 20 MEQ TABLET.ER. PO ONE (08:00)
--- NOTE | 2020-07-01 08:32 | PDOC ---
[facility] PROGRESS NOTE Date of Service DOS: DATE: 07/01/20 TIME: 08:30 Chief Complaint Chief Complaint A/P: Seizure Vasomotor nephropathy Metabolic encephalopathy: improved H/o right occipital infarct with past CVA Vascular dementia -with what appears to be sundowning likely due to multiple prior infarcts, I agree with neurology assessment on this. Carotid artery disease with chronically occluded GORDON AFIB - likely chronic, rate controlled. takes eliquis at home. EF nml. Accelerated HTN Hx of AAA with repair Nontraumatic fall: He was here in October with new seizure, found to have a subacute right occipital infarct and hypertensive encephalopathy. He has atrial fibrillation and is on Eliquis. 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 EEG on 11/10/19 showed no epileptiform discharges, slowing of background. History of Present Illness History of Present Illness Mr Cooney is a 80-year-old male with past medical history of seizure, CVA, A. fib, who presents to the ER after a witnessed seizure and fall this morning with head injury. History was obtained from patient's due to postictal state. Per patient's he was in his normal state of health when she heard a fall around 9:00 this morning and witnessed seizure-like activity, so she contacted EMS. Patient's expresses some concern about medication compliance. She s tates that he is on blood thinners due to a history of A. fib 06/30: More alert with no acute problems. No further seizures or falls. PT recommends SNF however his family wishes for home with home health. Upon arrival to take him home, noted he was not at baseline and SBP > 180. Kept overnight for further observation due to concerns about mental status. He did fall off the commode overnight and struck his head. He still confused today, cannot remember his phone number to call his , I have reminded him of this however she is not answering her phone. His labs remained stable however his K is 3.4 took oral replacement. Still recommending skilled services on discharge. Seems to be sundowning due to multi-infarct dementia Vitals/I&O Vitals/I&O: Vital Signs Date Time Temp Pulse Resp B/P (MAP) Pulse Ox O2 Delivery O2 Flow Rate FiO2 07/01/20 06:18 66 176/81 (112) 07/01/20 03:04 97.6 18 100 Nasal Cannula 97.6 I & O 06/30/20 06/30/20 07/01/20 15:00 23:00 07:00 Intake Total 260 ml 120 ml Output Total 200 ml Balance 260 ml 120 ml -200 ml Physical Exam General: Alert, Cooperative, No acute distress Lungs: Clear Abdomen: Normal bowel sounds, Soft Extremities: No clubbing, No cyanosis, No edema Skin: No rashes, No significant lesion Labs Labs: Laboratory Tests Test 07/01/20 04:00 White Blood Count 6.2 x10^3/uL (4.0-11.0) Red Blood Count 4.47 x10^6/uL (4.30-5.70) Hemoglobin 11.6 g/dL (13.0-17.5) Hematocrit 36.1 % (39.0-53.0) Mean Corpuscular Volume 81 fL (79-100) Mean Corpuscular Hemoglobin 26 pg (25-35) Mean Corpuscular Hemoglobin Concent 32 g/dL (31-37) Red Cell Distribution Width 16.2 % (11.5-14.5) Platelet Count 210 x10^3/uL (140-400) Neutrophils (%) (Auto) 77 % (31-73) Lymphocytes (%) (Auto) 11 % (24-48) Monocytes (%) (Auto) 11 % (0-9) Eosinophils (%) (Auto) 1 % (0-3) Basophils (%) (Auto) 1 % (0-3) Neutrophils # (Auto) 4.7 x10^3/uL (1.8-7.7) Lymphocytes # (Auto) 0.7 x10^3/uL (1.0-4.8) Monocytes # (Auto) 0.7 x10^3/uL (0.0-1.1) Eosinophils # (Auto) 0.1 x10^3/uL (0.0-0.7) Basophils # (Auto) 0.0 x10^3/uL (0.0-0.2) Sodium Level 142 mmol/L (136-145) Potassium Level 3.4 mmol/L (3.5-5.1) Chloride Level 104 mmol/L (98-107) Carbon Dioxide Level 33 mmol/L (21-32) Anion Gap 5 (6-14) Blood Urea Nitrogen 24 mg/dL (8-26) Creatinine 1.5 mg/dL (0.7-1.3) Estimated GFR (Cockcroft-Gault) 44.9 Glucose Level 112 mg/dL (70-99) Calcium Level 9.1 mg/dL (8.5-10.1) Assessment and Plan Assessmemt and Plan Problems Medical Problems: (1) Hypertension Status: Acute Comment Review of Relevant I have reviewed the following items surinder (where applicable) has been applied. Medications: Current Medications Medications (Trade) Dose Ordered Sig/Margie Route PRN Reason Start Time Stop Time Status Last Admin Dose Admin Levetiracetam (Keppra) 750 mg BID PO 06/30/20 21:00 06/30/20 22:07 Justifications for Admission Other Justification ANDREW HILARIO MD Jul 01, 2020 08:32
--- NOTE | 2020-07-01 09:02 | PDOC ---
PROGRESS NOTES Date of Service DATE: 07/01/20 TIME: 08:59 Assessment Problems Medical Problems: (1) Hypertension Status: Acute He became agitated last night when came to pick him up, complained of dizziness and confusion, blood pressure shot up, discharge delayed Overnight he is observed to have sundowning, suspect multi-infarct dementia This morning he fell very slowly striking his head Breakthrough seizure, postictal confusion, now resolved History of strokes History of right carotid artery occlusion and other intracranial arterial abnormalities No new stroke Plan Head CT ordered Levetiracetam, dose increased Okay for discharge, appears to need [facility] unit Follow-up with me in 4-8 weeks I left a message with the patient's Subjective No complaints, wants to go home Objective Vital Signs Date Time Temp Pulse Resp B/P (MAP) Pulse Ox O2 Delivery O2 Flow Rate FiO2 07/01/20 06:18 66 176/81 (112) 07/01/20 03:04 97.6 18 100 Nasal Cannula 97.6 Intake and Output 07/01/20 07:00 Intake Total 380 ml Output Total 200 ml Balance 180 ml Intake Oral 380 ml Output Urine Total 200 ml # Voids 2 PHYSICAL EXAM Alert. Oriented to time, place and person. PERRL. EOMI. CN: no focal findings. Muscle tone: normal. Muscle strength: 4/5 DTR: 1+ Plantar reflex: flexor Gait: unsteady. Sensory exam: no abnormalities Review of Relevant I have reviewed the following items surinder (where applicable) has been applied. Labs Laboratory Tests Test 06/29/20 09:43 06/29/20 19:11 06/30/20 06:50 07/01/20 04:00 White Blood Count 9.1 x10^3/uL (4.0-11.0) 6.6 x10^3/uL (4.0-11.0) 6.2 x10^3/uL (4.0-11.0) Red Blood Count 5.22 x10^6/uL (4.30-5.70) 4.59 x10^6/uL (4.30-5.70) 4.47 x10^6/uL (4.30-5.70) Hemoglobin 13.5 g/dL (13.0-17.5) 12.0 g/dL (13.0-17.5) 11.6 g/dL (13.0-17.5) Hematocrit 42.4 % (39.0-53.0) 37.0 % (39.0-53.0) 36.1 % (39.0-53.0) Mean Corpuscular Volume 81 fL (79-100) 81 fL (79-100) 81 fL (79-100) Mean Corpuscular Hemoglobin 26 pg (25-35) 26 pg (25-35) 26 pg (25-35) Mean Corpuscular Hemoglobin Concent 32 g/dL (31-37) 32 g/dL (31-37) 32 g/dL (31-37) Red Cell Distribution Width 16.4 % (11.5-14.5) 16.7 % (11.5-14.5) 16.2 % (11.5-14.5) Platelet Count 265 x10^3/uL (140-400) 195 x10^3/uL (140-400) 210 x10^3/uL (140-400) Neutrophils (%) (Auto) 76 % (31-73) 79 % (31-73) 77 % (31-73) Lymphocytes (%) (Auto) 14 % (24-48) 8 % (24-48) 11 % (24-48) Monocytes (%) (Auto) 8 % (0-9) 11 % (0-9) 11 % (0-9) Eosinophils (%) (Auto) 1 % (0-3) 1 % (0-3) 1 % (0-3) Basophils (%) (Auto) 1 % (0-3) 1 % (0-3) 1 % (0-3) Neutrophils # (Auto) 6.9 x10^3/uL (1.8-7.7) 5.2 x10^3/uL (1.8-7.7) 4.7 x10^3/uL (1.8-7.7) Lymphocytes # (Auto) 1.3 x10^3/uL (1.0-4.8) 0.5 x10^3/uL (1.0-4.8) 0.7 x10^3/uL (1.0-4.8) Monocytes # (Auto) 0.8 x10^3/uL (0.0-1.1) 0.7 x10^3/uL (0.0-1.1) 0.7 x10^3/uL (0.0-1.1) Eosinophils # (Auto) 0.1 x10^3/uL (0.0-0.7) 0.0 x10^3/uL (0.0-0.7) 0.1 x10^3/uL (0.0-0.7) Basophils # (Auto) 0.1 x10^3/uL (0.0-0.2) 0.0 x10^3/uL (0.0-0.2) 0.0 x10^3/uL (0.0-0.2) Prothrombin Time 15.2 SEC (11.7-14.0) Prothromb Time International Ratio 1.2 (0.8-1.1) Activated Partial Thromboplast Time 36 SEC (24-38) Sodium Level 141 mmol/L (136-145) 140 mmol/L (136-145) 142 mmol/L (136-145) Potassium Level 3.9 mmol/L (3.5-5.1) 3.8 mmol/L (3.5-5.1) 3.4 mmol/L (3.5-5.1) Chloride Level 101 mmol/L (98-107) 102 mmol/L (98-107) 104 mmol/L (98-107) Carbon Dioxide Level 26 mmol/L (21-32) 32 mmol/L (21-32) 33 mmol/L (21-32) Anion Gap 14 (6-14) 6 (6-14) 5 (6-14) Blood Urea Nitrogen 15 mg/dL (8-26) 16 mg/dL (8-26) 24 mg/dL (8-26) Creatinine 1.4 mg/dL (0.7-1.3) 1.2 mg/dL (0.7-1.3) 1.5 mg/dL (0.7-1.3) Estimated GFR (Cockcroft-Gault) 48.6 58.1 44.9 BUN/Creatinine Ratio 11 (6-20) Glucose Level 186 mg/dL (70-99) 96 mg/dL (70-99) 112 mg/dL (70-99) Calcium Level 9.1 mg/dL (8.5-10.1) 8.9 mg/dL (8.5-10.1) 9.1 mg/dL (8.5-10.1) Magnesium Level 1.7 mg/dL (1.8-2.4) 2.1 mg/dL (1.8-2.4) Total Bilirubin 1.0 mg/dL (0.2-1.0) Aspartate Amino Transf (AST/SGOT) 16 U/L (15-37) Alanine Aminotransferase (ALT/SGPT) 16 U/L (16-63) Alkaline Phosphatase 141 U/L (46-116) Creatine Kinase 84 U/L (39-308) Troponin I Quantitative < 0.017 ng/mL (0.000-0.055) VT-Lxb-V-Type Natriuretic Peptide 3995 pg/mL (0-449) Total Protein 7.8 g/dL (6.4-8.2) Albumin 3.5 g/dL (3.4-5.0) Albumin/Globulin Ratio 0.8 (1.0-1.7) Urine Collection Type Unknown Urine Color Yellow Urine Clarity Cloudy Urine pH 6.0 (<5.0-8.0) Urine Specific [place] 1.015 (1.000-1.030) Urine Protein 100 mg/dL (NEG-TRACE) Urine Glucose (UA) Negative mg/dL (NEG) Urine Ketones (Stick) Negative mg/dL (NEG) Urine Blood Large (NEG) Urine Nitrite Positive (NEG) Urine Bilirubin Negative (NEG) Urine Urobilinogen Dipstick 1.0 mg/dL (0.2 mg/dL) Urine Leukocyte Esterase Trace (NEG) Urine RBC 20-40 /HPF (0-2) Urine WBC 1-4 /HPF (0-4) Urine Squamous Epithelial Cells Mod /LPF Urine Bacteria Mod /HPF (0-FEW) Urine Hyaline Casts Few /HPF Urine Mucus Mod /LPF Urine Opiates Screen Neg (NEG) Urine Methadone Screen Neg (NEG) Urine Barbiturates Pos (NEG) Urine Phencyclidine Screen Neg (NEG) Urine Amphetamine/Methamphetamine Neg (NEG) Urine Benzodiazepines Screen Neg (NEG) Urine Cocaine Screen Neg (NEG) Urine Cannabinoids Screen Neg (NEG) Urine Ethyl Alcohol Neg (NEG) Phosphorus Level 2.8 mg/dL (2.6-4.7) Laboratory Tests Test 07/01/20 04:00 White Blood Count 6.2 x10^3/uL (4.0-11.0) Red Blood Count 4.47 x10^6/uL (4.30-5.70) Hemoglobin 11.6 g/dL (13.0-17.5) Hematocrit 36.1 % (39.0-53.0) Mean Corpuscular Volume 81 fL (79-100) Mean Corpuscular Hemoglobin 26 pg (25-35) Mean Corpuscular Hemoglobin Concent 32 g/dL (31-37) Red Cell Distribution Width 16.2 % (11.5-14.5) Platelet Count 210 x10^3/uL (140-400) Neutrophils (%) (Auto) 77 % (31-73) Lymphocytes (%) (Auto) 11 % (24-48) Monocytes (%) (Auto) 11 % (0-9) Eosinophils (%) (Auto) 1 % (0-3) Basophils (%) (Auto) 1 % (0-3) Neutrophils # (Auto) 4.7 x10^3/uL (1.8-7.7) Lymphocytes # (Auto) 0.7 x10^3/uL (1.0-4.8) Monocytes # (Auto) 0.7 x10^3/uL (0.0-1.1) Eosinophils # (Auto) 0.1 x10^3/uL (0.0-0.7) Basophils # (Auto) 0.0 x10^3/uL (0.0-0.2) Sodium Level 142 mmol/L (136-145) Potassium Level 3.4 mmol/L (3.5-5.1) Chloride Level 104 mmol/L (98-107) Carbon Dioxide Level 33 mmol/L (21-32) Anion Gap 5 (6-14) Blood Urea Nitrogen 24 mg/dL (8-26) Creatinine 1.5 mg/dL (0.7-1.3) Estimated GFR (Cockcroft-Gault) 44.9 Glucose Level 112 mg/dL (70-99) Calcium Level 9.1 mg/dL (8.5-10.1) Medications Current Medications Lorazepam (Ativan Inj) 2 mg 1X ONCE IVP Last administered on 06/29/20at 10:14; Start 06/29/20 at 10:00; Stop 06/29/20 at 10:01; Status DC Lorazepam (Ativan Inj) 2 mg STK-MED ONCE .ROUTE ; Start 06/29/20 at 09:45; Stop 06/29/20 at 09:45; Status DC Levetiracetam 500 mg/Dextrose 105 ml @ 420 mls/hr 1X ONCE IV Last administered on 06/29/20at 10:30; Start 06/29/20 at 10:30; Stop 06/29/20 at 10:44; Status DC Magnesium Sulfate/ Dextrose 100 ml @ 100 mls/hr 1X ONCE IV Last administered on 06/29/20at 11:02; Start 06/29/20 at 11:00; Stop 06/29/20 at 11:59; Status DC Levetiracetam 500 mg/Dextrose 105 ml @ 420 mls/hr 1X ONCE IV ; Start 06/29/20 at 11:00; Stop 06/29/20 at 11:14; Status DC Morphine Sulfate (Morphine Sulfate) 1 mg PRN Q1HR PRN IV MODERATE PAIN; Start 06/29/20 at 11:15 Morphine Sulfate (Morphine Sulfate) 2 mg PRN Q1HR PRN IV SEVERE PAIN; Start 06/29/20 at 11:15; Stop 07/01/20 at 07:15; Status DC Lorazepam (Ativan Inj) 2 mg PRN Q15MIN PRN IVP seizure activity; Start 06/29/20 at 11:30 Ondansetron HCl (Zofran) 4 mg PRN Q8HRS PRN IV NAUSEA/VOMITING; Start 06/29/20 at 11:45; Stop 06/30/20 at 11:44; Status DC Levetiracetam 500 mg/Dextrose 105 ml @ 420 mls/hr Q12HR IV Last administered on 06/30/20at 08:36; Start 06/29/20 at 21:00; Stop 06/30/20 at 12:44; Status DC Amlodipine Besylate (Norvasc) 10 mg DAILY PO Last administered on 06/30/20at 08:35; Start 06/29/20 at 14:30 Apixaban (Eliquis) 5 mg BID PO Last administered on 06/30/20at 22:08; Start 06/29/20 at 14:30 Atorvastatin Calcium (Lipitor) 20 mg QHS PO Last administered on 06/30/20at 22:08; Start 06/29/20 at 21:00 Metoprolol Tartrate (Lopressor) 25 mg BID PO Last administered on 06/30/20at 22:10; Start 06/29/20 at 14:30 Levetiracetam (Keppra) 750 mg BID PO Last administered on 06/30/20at 22:07; Start 06/30/20 at 21:00 Potassium Chloride/Dextrose/ Sod Cl 1,000 ml @ 80 mls/hr [id number] IV ; Start 07/01/20 at 07:30; Stop 07/01/20 at 07:45; Status DC Potassium Chloride (Klor-Con) 40 meq 1X ONCE PO ; Start 07/01/20 at 08:00; Stop 07/01/20 at 08:01; Status DC Active Scripts Active Levetiracetam 750 Mg Tablet 750 Mg PO BID 90 Days Metoprolol Tartrate 25 Mg Tablet 25 Mg PO BID 30 Days Reported Hydralazine Hcl 10 Mg Tablet 2 Tab PO TID Zoloft (Sertraline Hcl) 50 Mg Tablet 1 Tab PO DAILY Amlodipine Besylate 10 Mg Tablet 10 Mg PO DAILY Eliquis (Apixaban) 5 Mg Tablet 5 Mg PO BID Lisinopril 20 Mg Tablet 2 Tab PO DAILY Lipitor (Atorvastatin Calcium) 20 Mg Tablet 1 Tab PO DAILY Vitals/I & O Vital Sign - Last 24 Hours 06/30/20 06/30/20 06/30/20 06/30/20 11:00 15:00 19:00 20:00 Temp 97.7 98.3 97.6 97.7 98.3 97.6 Pulse 60 65 83 Resp 18 18 20 B/P (MAP) 120/67 (84) 103/52 (69) 197/95 (129) Pulse Ox 95 O2 Delivery Room Air Room Air 06/30/20 06/30/20 07/01/20 07/01/20 22:10 23:00 03:04 06:18 Temp 97.6 97.6 97.6 97.6 Pulse 83 75 63 66 Resp 20 18 B/P (MAP) 197/95 178/101 (126) 156/80 (105) 176/81 (112) Pulse Ox 99 100 O2 Delivery Room Air Nasal Cannula Intake and Output 06/30/20 06/30/20 07/01/20 15:00 23:00 07:00 Intake Total 260 ml 120 ml Output Total 200 ml Balance 260 ml 120 ml -200 ml Justicifation of Admission Dx: Justifications for Admission: Justification of Admission Dx: Yes (seizure, confusion) Altered Mental Status: Altered Mental Status HAILY SHEETS MD Jul 01, 2020 09:01
[2020-07-01] MEDS: levETIRAcetam 500 MG TABLET PO SCH ×2 (10:31→21:11)
[2020-07-01] MEDS: APIXABAN 5 MG TABLET. PO SCH ×2 (10:31→21:11)
[2020-07-01] MEDS: amLODIPine BESYLATE 10 MG TABLET PO SCH (10:32)
[2020-07-01] MEDS: METOPROLOL TART IMMED RELEASE 25 MG TABLET. PO SCH ×2 (10:32→21:11)
[2020-07-01 11:00] VITALS: BP 106/73
--- NOTE | 2020-07-01 11:01 | RAD ---
CT HEAD AND CERVICAL SPINE WO Date: 07/01/2020 9:34 AM Clinical Indication: fall with injury, pain Comparison: CT head 06/29/2020. Technique: 5 mm axial tomographic images were obtained of the head without contrast. These were viewed on brain and bone windows. Noncontrast CT of the cervical spine was performed. Sagittal and coronal reformats were performed and evaluated. One or more of the following dose reduction techniques were utilized: Automated exposure control (AEC), Adjustment of mA and/or kV according to patient size, Use of iterative reconstruction technique such as ASiR, CT scan done according to ALARA and image gently/image wisely HEAD FINDINGS: Mild generalized cerebral and cerebellar volume loss. Mild nonspecific periventricular hypoattenuation, most commonly seen with chronic small vessel ischemic disease. Chronic left basal ganglia lacunar infarct. No intra- or extra-axial mass or fluid collection. No acute hemorrhage. The ventricles are normal in size, shape, and morphology. The mansfield-white matter junction is normal. The basilar cisterns are patent. The visualized paranasal sinuses are normal. The visualized portions of the orbits and globes are normal. The mastoid air cells are clear. No aggressive osseous lesion or fracture. CERVICAL SPINE FINDINGS: The cervical spine is normally aligned. No acute fracture. No aggressive lytic or blastic osseous lesions. Moderate multilevel degenerative disc space height loss. Multilevel mild spinal canal stenosis secondary to disc protrusions and marginal osteophytes. Multilevel mild and moderate neuroforaminal narrowing secondary to uncovertebral arthrosis. Multilevel mild and moderate facet arthrosis. The thyroid gland is normal. No cervical lymphadenopathy. Bilateral carotid atherosclerosis. The visualized aerodigestive tract is normal. Centrilobular emphysema. IMPRESSION: 1. No acute intracranial process. 2. No acute cervical spine fracture. Electronically signed by: Munir Valenzuela MD (07/01/2020 10:58 AM) [id number]
[2020-07-01] MEDS: ANTI-COAG MONITOR BY PHARMACY. MC PRN (12:14)
--- NOTE | 2020-07-01 12:23 | NUR ---
family came out of room stating that the patient was "on the floor". staff asked if they had witnessed the fall and they indicated they walked in the room and he was already sitting on the floor. bed alarm on but apparently malfunctioned as it did not sound. bed was plugged into wall and call light system at time of fall. pt helped back into bed by staff. VSS. no injuries noted. when pt was questioned what he was doing, he stated "I needed to go to the bathroom and didn't want to bother you." staff re-educated patient on use of call light. [place] bed alarm placed. family at bedside. Dr. Pike, NS, and Sylwia, nurse infrastructure project manager, informed. no new orders.
--- NOTE | 2020-07-01 13:31 | SNU/HH DC ---
DISCHARGE ORDERS DISCHARGE INFORMATION: DISCHARGE DATE: Jun 30, 2020 FINAL DIAGNOSIS Problems Medical Problems: (1) Hypertension Status: Acute CONDITION ON DISCHARGE: Stable CODE STATUS: Code Status: DNR/DNI FCI: SNF STAY <30 DAYS: Yes POST DISCHARGE ORDERS: ACTIVITY ORDERS: No restrictions, Resume previous activity, Activity as tolerated WEIGHT BEARING STATUS: No restrictions, Full weight bearing, As tolerated DIET AFTER DISCHARGE: Cardiac WOUND/INCISION CARE: Keep wound/cast CDI CHECKS AFTER DISCHARGE: CHECKS AFTER DISCHARGE: Check blood press - daily, Check your Temp as needed FOLLOW-UP: PHYSICIAN FOLLOW-UP: DR. MELTON (NEUOROLOGY) [phone] IN 4-8 WEEKS ADDITIONAL FOLLOW-UP: PRIMARY CARE PROVIDER IN 1-2 WEEKS TREATMENT/EQUIPMENT ORDERS: ADAPTIVE EQUIPMENT NEEDED: None Physical Therapy For: Evalulation/Treatment Occupational Therapy For: Evaluation/Treatment DISCHARGE MEDICATIONS: Home Meds Active Scripts Levetiracetam (LEVETIRACETAM) 750 Mg Tablet, 750 MG PO BID for Seizures for 90 Days, #180 TAB 1 Refill Prov:ANDREW HILARIO MD 06/30/20 Metoprolol Tartrate (METOPROLOL TARTRATE) 25 Mg Tablet, 25 MG PO BID for CHF for 30 Days, #60 TAB Prov:GEM HATCH MD 11/13/19 Reported Medications Hydralazine Hcl (HYDRALAZINE HCL) 10 Mg Tablet, 2 TAB PO TID for HTN, #90 TAB 3 Refills 06/29/20 Sertraline Hcl (ZOLOFT) 50 Mg Tablet, 1 TAB PO DAILY for DEPRESSION, #30 TAB 2 Refills 06/29/20 Amlodipine Besylate (AMLODIPINE BESYLATE) 10 Mg Tablet, 10 MG PO DAILY, TAB 11/09/19 Apixaban (ELIQUIS) 5 Mg Tablet, 5 MG PO BID, TAB 11/09/19 Lisinopril (LISINOPRIL) 20 Mg Tablet, 2 TAB PO DAILY, #30 TAB 5 Refills 11/09/19 Atorvastatin Calcium (LIPITOR) 20 Mg Tablet, 1 TAB PO DAILY, #90 TAB 1 Refill 11/09/19 Discontinued Scripts Levetiracetam (KEPPRA) 500 Mg Tablet, 500 MG PO BID for Seizure disorder for 30 Days, #60 TAB Prov:GEM AHTCH MD 11/13/19 ANDREW HILARIO MD Jul 01, 2020 13:31
[2020-07-01 15:00] VITALS: BP 120/59
--- NOTE | 2020-07-01 16:39 | NUR ---
YVES following. Spoke with RN and reviewed chart. SW referred for discharge planning and pt's cognitive decline. YVES met with pt who is a/o and able to make needs known. Pt's discharge home with [facility] for yesterday was held per pt having 2 falls in the last 24 hours. Pt now requesting SNU on discharge. Pt would like to go to [facility] as they accept his [employer] insurance. YVES phoned and faxed referral and requested that [facility] submit for authorization if they can accept pt clinically. YVES requested a COVID test. YVES completed patient choice of vendor form. Spoke with Dr. Pike who stated pt passed the MMSE. Pt requested to complete POA for [facility] and listed [id number] Allie Hernnadez ([phone]) as the primary agent and son-in-law Amadou Hernandez ([phone]) as an alternate agent. POA for [facility] notarized and copy placed on pt's chart. Pt added to the weekend discharge list. YVES following.
[2020-07-01 19:00] VITALS: BP 121/65
[2020-07-01] MEDS: ATORVASTATIN CALCIUM 20 MG TABLET PO SCH (21:11)
[2020-07-01 22:58] VITALS: BP 128/67
[2020-07-02 03:00] VITALS: BP 165/82
[2020-07-02 04:16] LABS: BASO % 1 % (0-3); EOS # 0.2 x10^3/uL (0.0-0.7); EOS % 3 % (0-3); HEMATOCRIT 37.9 % (39.0-53.0); HEMOGLOBIN 12.1 g/dL (13.0-17.5); LYMPH # 0.8 x10^3/uL (1.0-4.8); LYMPH % 13 % (24-48); MEAN CORPUSCULAR HEMOGLOBIN 26 pg (25-35); MEAN CORPUSCULAR HGB CONC 32 g/dL (31-37); MEAN CORPUSCULAR VOLUME 81 fL (79-100); MONO # 0.8 x10^3/uL (0.0-1.1); MONO % 14 % (0-9); NEUT # 4.3 x10^3/uL (1.8-7.7); NEUT % 70 % (31-73); PLATELET COUNT 221 x10^3/uL (140-400); RED BLOOD COUNT 4.67 x10^6/uL (4.30-5.70); RED CELL DISTRIBUTION WIDTH 16.2 % (11.5-14.5); WHITE BLOOD COUNT 6.1 x10^3/uL (4.0-11.0)
[2020-07-02 04:48] LABS: CALCIUM 9.1 mg/dL (8.5-10.1); CREATININE 1.3 mg/dL (0.7-1.3); POTASSIUM 4.4 mmol/L (3.5-5.1)
[2020-07-02 07:00] VITALS: BP 160/79
[2020-07-02] MEDS: ANTI-COAG MONITOR BY PHARMACY. MC PRN (07:42)
[2020-07-02] MEDS: levETIRAcetam 500 MG TABLET PO SCH ×2 (08:50→20:40)
[2020-07-02] MEDS: amLODIPine BESYLATE 10 MG TABLET PO SCH (08:51)
[2020-07-02] MEDS: APIXABAN 5 MG TABLET. PO SCH ×2 (08:51→20:39)
[2020-07-02] MEDS: METOPROLOL TART IMMED RELEASE 25 MG TABLET. PO SCH ×2 (08:51→20:40)
--- NOTE | 2020-07-02 09:00 | NUR ---
While nurse in room with patient, pt exhibited jerking bilateral arms, but no definite rhythmic motion observed. Episode lasted approx 15 seconds. No loss of conciousness noted, and no postictal period observed. Patient reports that this is the type of seizure that he has been having, and they last usually 15-20 seconds. Patient also reports they have seemed to progressively involve the right side more than the left. RENETTA. No c/o headache noted. Dr Bello on unit, informed of activity observed.
--- NOTE | 2020-07-02 09:40 | PDOC ---
[facility] PROGRESS NOTE Date of Service DOS: DATE: 07/02/20 TIME: 09:34 Chief Complaint Chief Complaint A/P: Seizure Vasomotor nephropathy Metabolic encephalopathy: improved H/o right occipital infarct with past CVA Vascular dementia -with what appears to be sundowning likely due to multiple prior infarcts, I agree with neurology assessment on this. Carotid artery disease with chronically occluded GORDON AFIB - likely chronic, rate controlled. takes eliquis at home. EF nml. Accelerated HTN Hx of AAA with repair Nontraumatic fall: He was here in October with new seizure, found to have a subacute right occipital infarct and hypertensive encephalopathy. He has atrial fibrillation and is on Eliquis. 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 EEG on 11/10/19 showed no epileptiform discharges, slowing of background. History of Present Illness History of Present Illness Mr Cooney is a 80-year-old male with past medical history of seizure, CVA, A. fib, who presents to the ER after a witnessed seizure and fall this morning with head injury. History was obtained from patient's due to postictal state. Per patient's he was in his normal state of health when she heard a fall around 9:00 this morning and witnessed seizure-like activity, so she contacted EMS. Patient's expresses some concern about medication compliance. She s tates that he is on blood thinners due to a history of A. fib 06/30: More alert with no acute problems. No further seizures or falls. PT recommends SNF however his family wishes for home with home health. Upon arrival to take him home, noted he was not at baseline and SBP > 180. 07/01: Kept overnight for further observation due to concerns about mental status. He did fall off the commode overnight and struck his head. Overnight no events, slept better with zyprexa. Less hyperactive. Has some myoc lonic movements in all 4 extremities during my examination, but is able to carry on a conversation with me the entire time. Intentional movement breaks him out of clonus. Plan: Still recommending skilled services on discharge. Seems to be sundowning due to multi-infarct dementia Vitals/I&O Vitals/I&O: Vital Signs Date Time Temp Pulse Resp B/P (MAP) Pulse Ox O2 Delivery O2 Flow Rate FiO2 07/02/20 08:51 65 160/79 07/02/20 07:00 97.8 20 96 Room Air 97.8 07/01/20 19:00 2.0 I & O 07/01/20 07/01/20 07/02/20 15:00 23:00 07:00 Intake Total 120 ml 440 ml Output Total 200 ml 300 ml Balance 120 ml 240 ml -300 ml Physical Exam General: Alert, Cooperative, No acute distress Lungs: Clear Abdomen: Normal bowel sounds, Soft Extremities: No clubbing, No cyanosis, No edema Skin: No rashes, No significant lesion Labs Labs: Laboratory Tests Test 07/02/20 03:38 White Blood Count 6.1 x10^3/uL (4.0-11.0) Red Blood Count 4.67 x10^6/uL (4.30-5.70) Hemoglobin 12.1 g/dL (13.0-17.5) Hematocrit 37.9 % (39.0-53.0) Mean Corpuscular Volume 81 fL (79-100) Mean Corpuscular Hemoglobin 26 pg (25-35) Mean Corpuscular Hemoglobin Concent 32 g/dL (31-37) Red Cell Distribution Width 16.2 % (11.5-14.5) Platelet Count 221 x10^3/uL (140-400) Neutrophils (%) (Auto) 70 % (31-73) Lymphocytes (%) (Auto) 13 % (24-48) Monocytes (%) (Auto) 14 % (0-9) Eosinophils (%) (Auto) 3 % (0-3) Basophils (%) (Auto) 1 % (0-3) Neutrophils # (Auto) 4.3 x10^3/uL (1.8-7.7) Lymphocytes # (Auto) 0.8 x10^3/uL (1.0-4.8) Monocytes # (Auto) 0.8 x10^3/uL (0.0-1.1) Eosinophils # (Auto) 0.2 x10^3/uL (0.0-0.7) Basophils # (Auto) 0.0 x10^3/uL (0.0-0.2) Sodium Level 144 mmol/L (136-145) Potassium Level 4.4 mmol/L (3.5-5.1) Chloride Level 106 mmol/L (98-107) Carbon Dioxide Level 33 mmol/L (21-32) Anion Gap 5 (6-14) Blood Urea Nitrogen 20 mg/dL (8-26) Creatinine 1.3 mg/dL (0.7-1.3) Estimated GFR (Cockcroft-Gault) 53.0 Glucose Level 109 mg/dL (70-99) Calcium Level 9.1 mg/dL (8.5-10.1) Assessment and Plan Assessmemt and Plan Problems Medical Problems: (1) Hypertension Status: Acute Comment Review of Relevant I have reviewed the following items surinder (where applicable) has been applied. Medications: Current Medications Medications (Trade) Dose Ordered Sig/Margie Route PRN Reason Start Time Stop Time Status Last Admin Dose Admin Olanzapine (ZyPREXA ZYDIS) 5 mg PRN BID PRN PO ANXIETY / AGITATION 07/01/20 12:00 07/01/20 21:11 Info (Anti-Coagulation Monitoring By Pharmacy) 1 each PRN DAILY PRN MC SEE COMMENTS 07/01/20 12:15 07/02/20 07:42 Justifications for Admission Other Justification ANDREW HILARIO MD Jul 02, 2020 09:40
[2020-07-02] MEDS ORDERED: ONDANSETRON ODT 4 MG TAB.RAPDIS. PO PRN (09:45)
[2020-07-02 11:23] VITALS: BP 107/57
--- NOTE | 2020-07-02 14:40 | NUR ---
Patient was reported to have another episode, no longer showing signs when nurse in to assess.
[2020-07-02 15:08] VITALS: BP 134/70
--- NOTE | 2020-07-02 15:21 | NUR ---
Nurse called into room as another episode was reported. Patient was laying on back, face neck red, facial expression very tense,frowning, Patient related that he was having pain right chest, described as spasm like. This appeared to last approx 20 seconds, after which he appeared to relax. BP 152/86 HR 80 O2 sat 92% on room air. Patient has allowed nurse to place back on telemetry, which was reading afib.. Saline lock placed in left ac for IV access. Dr Pike informed on this 3rd episode. Nurse has spoke with Dr Rascon per phone, he will be seeing patient today.
[2020-07-02] MEDS ORDERED: CYCLOBENZAPRINE 10 MG TABLET. PO PRN (15:45)
[2020-07-02 19:00] VITALS: BP 158/78
[2020-07-02] MEDS: ACETAMINOPHEN 325 MG TABLET. PO PRN (20:39)
[2020-07-02] MEDS: ATORVASTATIN CALCIUM 20 MG TABLET PO SCH (20:40)
[2020-07-02 23:07] VITALS: BP 115/54
--- NOTE | 2020-07-02 23:56 | PDOC ---
PROGRESS NOTES Date of Service DATE: 07/02/20 TIME: 23:52 Assessment Problems Medical Problems: (1) Hypertension Status: Acute 1. Seizures-the nurses called reporting that he was having generalized shaking and was fully awake. The patient however states that the shaking is only his right leg. The spells were occurring every 2 hours and lasting [address] Phelps started the medication the frequency has decreased. 2. He has not been as agitated this evening. He goes through periods of agitation. 3. History of right carotid artery occlusion and other intracranial arterial abnormalities. No acute stroke. Plan 1. He can transfer to a fdc unit from a neurologic perspective when medically stable. 2. Continue with the current dosage of levetiracetam which Dr. Phelps increased. The level should continue to build over the next several days and hopefully will reduce seizure frequency. I am not completely clear that every spell he is experiencing is a seizure as he seems to have bilateral shaking and yet is fully conscious. Subjective I am feeling okay. I am not in any pain right now. It is just my right leg that shakes. Objective Vital Signs Date Time Temp Pulse Resp B/P (MAP) Pulse Ox O2 Delivery O2 Flow Rate FiO2 07/02/20 23:07 98.2 62 20 115/54 (74) 96 Room Air 2.0 98.2 Intake and Output 07/02/20 07:00 Intake Total 560 ml Output Total 500 ml Balance 60 ml Intake Oral 560 ml Output Urine Total 500 ml # Voids 3 PHYSICAL EXAM He was lying in the bed alert and cooperative. Speech was fluent and clear. He was fully oriented to place, month and year. He was able to follow commands. Examination of the cranial nerves revealed visual alexandra appeared to be full to confrontation. Extraocular movements were intact. The eyes are conjugate. Face was symmetric. Tongue was midline. Shoulder shrug was symmetric. He was able to hold both arms in front of him. There was no asterixis. Power was fairly symmetric with play therapist, finger abduction, elbow flexion, although extension and arm abduction. He could raise both legs at the hip with good power. He offer good resistance with knee flexion. Coordination testing with [id number] was diminished on the left. Sensory exam was intact to light touch. Review of Relevant I have reviewed the following items surinder (where applicable) has been applied. Labs Laboratory Tests Test 07/01/20 04:00 07/02/20 03:38 White Blood Count 6.2 x10^3/uL (4.0-11.0) 6.1 x10^3/uL (4.0-11.0) Red Blood Count 4.47 x10^6/uL (4.30-5.70) 4.67 x10^6/uL (4.30-5.70) Hemoglobin 11.6 g/dL (13.0-17.5) 12.1 g/dL (13.0-17.5) Hematocrit 36.1 % (39.0-53.0) 37.9 % (39.0-53.0) Mean Corpuscular Volume 81 fL (79-100) 81 fL (79-100) Mean Corpuscular Hemoglobin 26 pg (25-35) 26 pg (25-35) Mean Corpuscular Hemoglobin Concent 32 g/dL (31-37) 32 g/dL (31-37) Red Cell Distribution Width 16.2 % (11.5-14.5) 16.2 % (11.5-14.5) Platelet Count 210 x10^3/uL (140-400) 221 x10^3/uL (140-400) Neutrophils (%) (Auto) 77 % (31-73) 70 % (31-73) Lymphocytes (%) (Auto) 11 % (24-48) 13 % (24-48) Monocytes (%) (Auto) 11 % (0-9) 14 % (0-9) Eosinophils (%) (Auto) 1 % (0-3) 3 % (0-3) Basophils (%) (Auto) 1 % (0-3) 1 % (0-3) Neutrophils # (Auto) 4.7 x10^3/uL (1.8-7.7) 4.3 x10^3/uL (1.8-7.7) Lymphocytes # (Auto) 0.7 x10^3/uL (1.0-4.8) 0.8 x10^3/uL (1.0-4.8) Monocytes # (Auto) 0.7 x10^3/uL (0.0-1.1) 0.8 x10^3/uL (0.0-1.1) Eosinophils # (Auto) 0.1 x10^3/uL (0.0-0.7) 0.2 x10^3/uL (0.0-0.7) Basophils # (Auto) 0.0 x10^3/uL (0.0-0.2) 0.0 x10^3/uL (0.0-0.2) Sodium Level 142 mmol/L (136-145) 144 mmol/L (136-145) Potassium Level 3.4 mmol/L (3.5-5.1) 4.4 mmol/L (3.5-5.1) Chloride Level 104 mmol/L (98-107) 106 mmol/L (98-107) Carbon Dioxide Level 33 mmol/L (21-32) 33 mmol/L (21-32) Anion Gap 5 (6-14) 5 (6-14) Blood Urea Nitrogen 24 mg/dL (8-26) 20 mg/dL (8-26) Creatinine 1.5 mg/dL (0.7-1.3) 1.3 mg/dL (0.7-1.3) Estimated GFR (Cockcroft-Gault) 44.9 53.0 Glucose Level 112 mg/dL (70-99) 109 mg/dL (70-99) Calcium Level 9.1 mg/dL (8.5-10.1) 9.1 mg/dL (8.5-10.1) Laboratory Tests Test 07/02/20 03:38 White Blood Count 6.1 x10^3/uL (4.0-11.0) Red Blood Count 4.67 x10^6/uL (4.30-5.70) Hemoglobin 12.1 g/dL (13.0-17.5) Hematocrit 37.9 % (39.0-53.0) Mean Corpuscular Volume 81 fL (79-100) Mean Corpuscular Hemoglobin 26 pg (25-35) Mean Corpuscular Hemoglobin Concent 32 g/dL (31-37) Red Cell Distribution Width 16.2 % (11.5-14.5) Platelet Count 221 x10^3/uL (140-400) Neutrophils (%) (Auto) 70 % (31-73) Lymphocytes (%) (Auto) 13 % (24-48) Monocytes (%) (Auto) 14 % (0-9) Eosinophils (%) (Auto) 3 % (0-3) Basophils (%) (Auto) 1 % (0-3) Neutrophils # (Auto) 4.3 x10^3/uL (1.8-7.7) Lymphocytes # (Auto) 0.8 x10^3/uL (1.0-4.8) Monocytes # (Auto) 0.8 x10^3/uL (0.0-1.1) Eosinophils # (Auto) 0.2 x10^3/uL (0.0-0.7) Basophils # (Auto) 0.0 x10^3/uL (0.0-0.2) Sodium Level 144 mmol/L (136-145) Potassium Level 4.4 mmol/L (3.5-5.1) Chloride Level 106 mmol/L (98-107) Carbon Dioxide Level 33 mmol/L (21-32) Anion Gap 5 (6-14) Blood Urea Nitrogen 20 mg/dL (8-26) Creatinine 1.3 mg/dL (0.7-1.3) Estimated GFR (Cockcroft-Gault) 53.0 Glucose Level 109 mg/dL (70-99) Calcium Level 9.1 mg/dL (8.5-10.1) Medications Current Medications Lorazepam (Ativan Inj) 2 mg 1X ONCE IVP Last administered on 06/29/20at 10:14; Start 06/29/20 at 10:00; Stop 06/29/20 at 10:01; Status DC Lorazepam (Ativan Inj) 2 mg STK-MED ONCE .ROUTE ; Start 06/29/20 at 09:45; Stop 06/29/20 at 09:45; Status DC Levetiracetam 500 mg/Dextrose 105 ml @ 420 mls/hr 1X ONCE IV Last administered on 06/29/20at 10:30; Start 06/29/20 at 10:30; Stop 06/29/20 at 10:44; Status DC Magnesium Sulfate/ Dextrose 100 ml @ 100 mls/hr 1X ONCE IV Last administered on 06/29/20at 11:02; Start 06/29/20 at 11:00; Stop 06/29/20 at 11:59; Status DC Levetiracetam 500 mg/Dextrose 105 ml @ 420 mls/hr 1X ONCE IV ; Start 06/29/20 at 11:00; Stop 06/29/20 at 11:14; Status DC Morphine Sulfate (Morphine Sulfate) 1 mg PRN Q1HR PRN IV MODERATE PAIN; Start 06/29/20 at 11:15; Stop 07/02/20 at 09:34; Status DC Morphine Sulfate (Morphine Sulfate) 2 mg PRN Q1HR PRN IV SEVERE PAIN; Start 06/29/20 at 11:15; Stop 07/01/20 at 07:15; Status DC Lorazepam (Ativan Inj) 2 mg PRN Q15MIN PRN IVP seizure activity; Start 06/29/20 at 11:30; Stop 07/02/20 at 09:34; Status DC Ondansetron HCl (Zofran) 4 mg PRN Q8HRS PRN IV NAUSEA/VOMITING; Start 06/29/20 at 11:45; Stop 06/30/20 at 11:44; Status DC Levetiracetam 500 mg/Dextrose 105 ml @ 420 mls/hr Q12HR IV Last administered on 06/30/20at 08:36; Start 06/29/20 at 21:00; Stop 06/30/20 at 12:44; Status DC Amlodipine Besylate (Norvasc) 10 mg DAILY PO Last administered on 07/02/20at 08:51; Start 06/29/20 at 14:30 Apixaban (Eliquis) 5 mg BID PO Last administered on 07/02/20at 20:39; Start 06/29/20 at 14:30 Atorvastatin Calcium (Lipitor) 20 mg QHS PO Last administered on 07/02/20at 20:40; Start 06/29/20 at 21:00 Metoprolol Tartrate (Lopressor) 25 mg BID PO Last administered on 07/02/20at 20:40; Start 06/29/20 at 14:30 Levetiracetam (Keppra) 750 mg BID PO Last administered on 07/02/20at 20:40; Start 06/30/20 at 21:00 Potassium Chloride/Dextrose/ Sod Cl 1,000 ml @ 80 mls/hr [id number] IV ; Start 07/01/20 at 07:30; Stop 07/01/20 at 07:45; Status DC Potassium Chloride (Klor-Con) 40 meq 1X ONCE PO Last administered on 07/01/20at 12:39; Start 07/01/20 at 08:00; Stop 07/01/20 at 08:01; Status DC Olanzapine (ZyPREXA ZYDIS) 5 mg PRN BID PRN PO ANXIETY / AGITATION Last administered on 07/01/20at 21:11; Start 07/01/20 at 12:00 Info (Anti-Coagulation Monitoring By Pharmacy) 1 each PRN DAILY PRN MC SEE COMMENTS Last administered on 07/02/20at 07:42; Start 07/01/20 at 12:15 Ondansetron HCl (Zofran Odt) 4 mg PRN Q6HRS PRN PO NAUSEA/VOMITING; Start 07/02/20 at 09:45 Acetaminophen (Tylenol) 650 mg PRN Q6HRS PRN PO MILD PAIN / TEMP > 100.3'F Last administered on 07/02/20at 20:39; Start 07/02/20 at 09:45 Cyclobenzaprine HCl (Flexeril) 5 mg TID PRN PRN PO MUSCLE SPASMS Last ad ministered on 07/02/20at 20:40; Start 07/02/20 at 15:45 Active Scripts Active Levetiracetam 750 Mg Tablet 750 Mg PO BID 90 Days Metoprolol Tartrate 25 Mg Tablet 25 Mg PO BID 30 Days Reported Hydralazine Hcl 10 Mg Tablet 2 Tab PO TID Zoloft (Sertraline Hcl) 50 Mg Tablet 1 Tab PO DAILY Amlodipine Besylate 10 Mg Tablet 10 Mg PO DAILY Eliquis (Apixaban) 5 Mg Tablet 5 Mg PO BID Lisinopril 20 Mg Tablet 2 Tab PO DAILY Lipitor (Atorvastatin Calcium) 20 Mg Tablet 1 Tab PO DAILY Vitals/I & O Vital Sign - Last 24 Hours 07/02/20 07/02/20 07/02/20 07/02/20 03:00 07:00 08:00 08:51 Temp 97.2 97.8 97.2 97.8 Pulse 71 65 65 Resp 20 20 B/P (MAP) 165/82 (109) 160/79 (106) 160/79 Pulse Ox 97 96 O2 Delivery Room Air Room Air Room Air 07/02/20 07/02/20 07/02/20 07/02/20 08:51 11:23 15:08 19:00 Temp 97.7 97.8 98.5 97.7 97.8 98.5 Pulse 65 62 68 84 Resp 18 18 20 B/P (MAP) 160/79 107/57 (74) 134/70 (91) 158/78 (104) Pulse Ox 94 96 92 O2 Delivery Room Air Room Air Room Air O2 Flow Rate 2.0 07/02/20 07/02/20 07/02/20 20:00 20:40 23:07 Temp 98.2 98.2 Pulse 84 62 Resp 20 B/P (MAP) 158/78 115/54 (74) Pulse Ox 96 O2 Delivery Room Air Room Air O2 Flow Rate 2.0 Intake and Output 07/01/20 07/01/20 07/02/20 15:00 23:00 07:00 Intake Total 120 ml 440 ml Output Total 200 ml 300 ml Balance 120 ml 240 ml -300 ml Justicifation of Admission Dx: Justifications for Admission: Justification of Admission Dx: Yes (seizure, confusion) Altered Mental Status: Altered Mental Status GRAHAM JOHNSON MD Jul 02, 2020 23:56
[2020-07-03 03:00] VITALS: BP 120/50
[2020-07-03 05:05] LABS: BASO % 1 % (0-3); EOS # 0.2 x10^3/uL (0.0-0.7); EOS % 4 % (0-3); HEMATOCRIT 33.9 % (39.0-53.0); LYMPH # 0.9 x10^3/uL (1.0-4.8); LYMPH % 15 % (24-48); MEAN CORPUSCULAR HEMOGLOBIN 26 pg (25-35); MEAN CORPUSCULAR HGB CONC 33 g/dL (31-37); MEAN CORPUSCULAR VOLUME 81 fL (79-100); MONO # 0.8 x10^3/uL (0.0-1.1); MONO % 13 % (0-9); NEUT # 4.3 x10^3/uL (1.8-7.7); NEUT % 68 % (31-73); PLATELET COUNT 194 x10^3/uL (140-400); RED BLOOD COUNT 4.17 x10^6/uL (4.30-5.70); RED CELL DISTRIBUTION WIDTH 16.4 % (11.5-14.5); WHITE BLOOD COUNT 6.4 x10^3/uL (4.0-11.0)
[2020-07-03 05:10] LABS: CALCIUM 8.5 mg/dL (8.5-10.1); CREATININE 1.5 mg/dL (0.7-1.3); GFR 44.9
[2020-07-03 07:31] VITALS: BP 144/73
[2020-07-03] MEDS: ANTI-COAG MONITOR BY PHARMACY. MC PRN (08:26)
--- NOTE | 2020-07-03 09:09 | PDOC ---
[facility] PROGRESS NOTE Date of Service DOS: DATE: 07/03/20 TIME: 09:07 Chief Complaint Chief Complaint A/P: Seizure Vasomotor nephropathy Metabolic encephalopathy: improved H/o right occipital infarct with past CVA Vascular dementia -with what appears to be sundowning likely due to multiple prior infarcts, I agree with neurology assessment on this. Carotid artery disease with chronically occluded GORDON AFIB - likely chronic, rate controlled. takes eliquis at home. EF nml. Accelerated HTN Hx of AAA with repair Nontraumatic fall: He was here in October with new seizure, found to have a subacute right occipital infarct and hypertensive encephalopathy. He has atrial fibrillation and is on Eliquis. 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 EEG on 11/10/19 showed no epileptiform discharges, slowing of background. History of Present Illness History of Present Illness Mr Cooney is a 80-year-old male with past medical history of seizure, CVA, A. fib, who presents to the ER after a witnessed seizure and fall this morning with head injury. History was obtained from patient's due to postictal state. Per patient's he was in his normal state of health when she heard a fall around 9:00 this morning and witnessed seizure-like activity, so she contacted EMS. Patient's expresses some concern about medication compliance. She s tates that he is on blood thinners due to a history of A. fib 06/30: More alert with no acute problems. No further seizures or falls. PT recommends SNF however his family wishes for home with home health. Upon arrival to take him home, noted he was not at baseline and SBP > 180. 07/01: Kept overnight for further observation due to concerns about mental status. He did fall off the commode overnight and struck his head. 07/02: Overnight no events, slept better with zyprexa. Less hyperactive. Has some myoclonic movements in all 4 extremities during my examination, but is able to carry on a conversation with me the entire time. Intentional movement breaks him out of clonus. Afebrile overnight. Did have some shaking observed by neurology as well. Labs stable except CR now 1.5 from 1.2. He is admittedly not drinking much in the way of fluids. Plan: Still recommending skilled services on discharge. Seems to be sundowning due to multi-infarct dementia Vitals/I&O Vitals/I&O: Vital Signs Date Time Temp Pulse Resp B/P (MAP) Pulse Ox O2 Delivery O2 Flow Rate FiO2 07/03/20 07:31 98.2 63 20 144/73 (96) 96 Room Air 98.2 07/03/20 03:00 2.0 I & O 07/02/20 07/02/20 07/03/20 15:00 23:00 07:00 Intake Total 400 ml 320 ml Output Total 250 ml 300 ml Balance 400 ml 70 ml -300 ml Physical Exam General: Alert, Cooperative, No acute distress Lungs: Clear Abdomen: Normal bowel sounds, Soft Extremities: No clubbing, No cyanosis, No edema Skin: No rashes, No significant lesion Labs Labs: Laboratory Tests Test 07/03/20 04:20 White Blood Count 6.4 x10^3/uL (4.0-11.0) Red Blood Count 4.17 x10^6/uL (4.30-5.70) Hemoglobin 11.0 g/dL (13.0-17.5) Hematocrit 33.9 % (39.0-53.0) Mean Corpuscular Volume 81 fL (79-100) Mean Corpuscular Hemoglobin 26 pg (25-35) Mean Corpuscular Hemoglobin Concent 33 g/dL (31-37) Red Cell Distribution Width 16.4 % (11.5-14.5) Platelet Count 194 x10^3/uL (140-400) Neutrophils (%) (Auto) 68 % (31-73) Lymphocytes (%) (Auto) 15 % (24-48) Monocytes (%) (Auto) 13 % (0-9) Eosinophils (%) (Auto) 4 % (0-3) Basophils (%) (Auto) 1 % (0-3) Neutrophils # (Auto) 4.3 x10^3/uL (1.8-7.7) Lymphocytes # (Auto) 0.9 x10^3/uL (1.0-4.8) Monocytes # (Auto) 0.8 x10^3/uL (0.0-1.1) Eosinophils # (Auto) 0.2 x10^3/uL (0.0-0.7) Basophils # (Auto) 0.0 x10^3/uL (0.0-0.2) Sodium Level 144 mmol/L (136-145) Potassium Level 4.0 mmol/L (3.5-5.1) Chloride Level 107 mmol/L (98-107) Carbon Dioxide Level 32 mmol/L (21-32) Anion Gap 5 (6-14) Blood Urea Nitrogen 22 mg/dL (8-26) Creatinine 1.5 mg/dL (0.7-1.3) Estimated GFR (Cockcroft-Gault) 44.9 Glucose Level 100 mg/dL (70-99) Calcium Level 8.5 mg/dL (8.5-10.1) Assessment and Plan Assessmemt and Plan Problems Medical Problems: (1) Hypertension Status: Acute Comment Review of Relevant I have reviewed the following items surinder (where applicable) has been applied. Medications: Current Medications Medications (Trade) Dose Ordered Sig/Margie Route PRN Reason Start Time Stop Time Status Last Admin Dose Admin Acetaminophen (Tylenol) 650 mg PRN Q6HRS PRN PO MILD PAIN / TEMP > 100.3'F 07/02/20 09:45 07/02/20 20:39 Cyclobenzaprine HCl (Flexeril) 5 mg TID PRN PRN PO MUSCLE SPASMS 07/02/20 15:45 07/02/20 20:40 Justifications for Admission Other Justification ANDREW HILARIO MD Jul 03, 2020 09:09
[2020-07-03] MEDS ORDERED: IV NORMAL SALINE 1000ML BAG 1,000 ML IV ONE (09:15)
[2020-07-03] MEDS: levETIRAcetam 500 MG TABLET PO SCH ×2 (09:46→20:54)
[2020-07-03] MEDS: amLODIPine BESYLATE 10 MG TABLET PO SCH (09:46)
[2020-07-03] MEDS: APIXABAN 5 MG TABLET. PO SCH ×2 (09:46→20:54)
[2020-07-03] MEDS: METOPROLOL TART IMMED RELEASE 25 MG TABLET. PO SCH ×2 (09:47→20:54)
[2020-07-03 11:07] VITALS: BP 136/77
[2020-07-03 15:18] VITALS: BP 152/70
[2020-07-03 19:00] VITALS: BP 161/88
[2020-07-03] MEDS: ATORVASTATIN CALCIUM 20 MG TABLET PO SCH (20:54)
[2020-07-03 23:00] VITALS: BP 131/48
[2020-07-04 03:00] VITALS: BP 136/64
[2020-07-04 05:50] LABS: BASO % 1 % (0-3); EOS # 0.2 x10^3/uL (0.0-0.7); EOS % 3 % (0-3); HEMATOCRIT 35.5 % (39.0-53.0); HEMOGLOBIN 11.3 g/dL (13.0-17.5); LYMPH # 0.8 x10^3/uL (1.0-4.8); LYMPH % 13 % (24-48); MEAN CORPUSCULAR HEMOGLOBIN 26 pg (25-35); MEAN CORPUSCULAR HGB CONC 32 g/dL (31-37); MEAN CORPUSCULAR VOLUME 82 fL (79-100); MONO # 0.9 x10^3/uL (0.0-1.1); MONO % 15 % (0-9); NEUT # 4.2 x10^3/uL (1.8-7.7); NEUT % 69 % (31-73); PLATELET COUNT 182 x10^3/uL (140-400); RED BLOOD COUNT 4.35 x10^6/uL (4.30-5.70); RED CELL DISTRIBUTION WIDTH 16.3 % (11.5-14.5); WHITE BLOOD COUNT 6.1 x10^3/uL (4.0-11.0)
[2020-07-04 06:03] LABS: CALCIUM 8.9 mg/dL (8.5-10.1); CREATININE 1.2 mg/dL (0.7-1.3); GFR 58.1; POTASSIUM 4.2 mmol/L (3.5-5.1)
[2020-07-04 07:18] VITALS: BP 145/72
[2020-07-04] MEDS: ANTI-COAG MONITOR BY PHARMACY. MC PRN (08:10)
[2020-07-04] MEDS: amLODIPine BESYLATE 10 MG TABLET PO SCH (09:28)
[2020-07-04] MEDS: APIXABAN 5 MG TABLET. PO SCH ×2 (09:28→20:38)
[2020-07-04] MEDS: METOPROLOL TART IMMED RELEASE 25 MG TABLET. PO SCH ×2 (09:28→20:39)
[2020-07-04] MEDS: levETIRAcetam 500 MG TABLET PO SCH ×2 (09:29→20:39)
[2020-07-04 11:00] VITALS: BP 156/70
--- NOTE | 2020-07-04 11:13 | PDOC ---
PROGRESS NOTES Date of Service: DATE: 07/04/20 TIME: 11:12 Chief Complaint Chief Complaint IMPRESSION Seizure Vasomotor nephropathy Metabolic encephalopathy: improved H/o right occipital infarct with past CVA right occipital lobe with suggestion of increased diffusion weighted signal, may represent subacute infarct. 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 Loss of flow void within the right internal carotid artery and left POST cerebral artery compatible with occlusion is seen on prior CT angiogram. 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 Decreased caliber right distal MCA branches compared to the left. Occlusion of the left P1/P2 segment. Vascular dementia -with what appears to be sundowning likely due to multiple prior infarcts, I agree with neurology assessment on this. Carotid artery disease with chronically occluded GORDON AFIB - likely chronic, rate controlled. takes eliquis at home. EF nml. Accelerated HTN Hx of AAA with repair Nontraumatic fall: Centrilobular emphysema. hx heavy drug abuse, cocaine, heroin remote HX TOBACCO ABUSE X 60 YRS here in October with new seizure, found to have a subacute right occipital infarct and hypertensive encephalopathy. He has atrial fibrillation and is on Eliquis. 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 EEG on 11/10/19 showed no epileptiform discharges, slowing of background. 38 MIN PT EXAM, CHART REVIEW, > 50% OF TIME SPENT WITH EXAM, CHART REVIEW, PT CARE COORDINATION History of Present Illness History of Present Illness Mr Cooney is a 80-year-old male with past medical history of seizure, CVA, A. fib, who presents to the ER after a witnessed seizure and fall this morning with head injury. History was obtained from patient's due to postictal state. Per patient's he was in his normal state of health when she heard a fall around 9:00 this morning and witnessed seizure-like activity, so she contacted EMS. Patient's expresses some concern about medication compliance. She states that he is on blood thinners due to a history of A. fib 06/30: More alert with no acute problems. No further seizures or falls. PT recommends SNF however his family wishes for home with home health. Upon arrival to take him home, noted he was not at baseline and SBP > 180. 07/01: Kept overnight for further observation due to concerns about mental status. He did fall off the commode overnight and struck his head. 07/02: Overnight no events, slept better with zyprexa. Less hyperactive. Has some myoclonic movements in all 4 extremities during my examination, but is able to carry on a conversation with me the entire time. Intentional movement breaks him out of clonus. Afebrile overnight. Did have some shaking observed by neurology as well. Labs stable except CR now 1.5 from 1.2. He is admittedly not drinking much in the way of fluids. Plan: Still recommending skilled services on discharge. Seems to be sundowning due to multi-infarct dementia needs DPOA Vitals Vitals Vital Signs Date Time Temp Pulse Resp B/P (MAP) Pulse Ox O2 Delivery O2 Flow Rate FiO2 07/04/20 11:00 98.4 75 20 156/70 (98) 96 Room Air 98.4 Physical Exam General: Alert, Oriented X3, Cooperative, No acute distress Heart: Regular rate, Gallops Lungs: Clear Abdomen: Normal bowel sounds, Soft, No tenderness Extremities: No clubbing, No cyanosis, No edema Skin: No rashes, No significant lesion Labs LABS DPOA DISCUSSION 17 MIN What Is a Power of Or Assistant? A power of criminal attorney (POA) is a legal document giving one person (the agent or mjmmrdmk-jq-kjif) the power to act for another person (the principal). The agent can have broad legal authority or limited authority to make legal decisions about the principal's property, finances or medical care. The power of criminal attorney is frequently used in the event of a principal's illness or disability, or when the principal can't be present to sign necessary legal documents for financial transactions. A power of criminal attorney can end for a number of reasons, such as when the principal dies, the principal revokes it, a court invalidates it, the principal divorces their spouse, who happens to be the agent, or the agent can no longer carry out the outlined responsibilities. Conventional POAs lapse when the creator becomes incapacitated, but a durable POA remains in force to enable the agent to manage the creators affairs, and a springing POA comes into effect only if and when the creator of the POA becomes incapacitated. A medical or healthcare POA enables an agent to make medical decisions on behalf of an incapacitated person. A power of criminal attorney (POA) is a legal document giving one person, the agent or prtmzphq-yl-katm the power to act for another person, the principal. The agent can have broad legal authority or limited authority to make decisions about the principal's property, finances or medical care. The power of criminal attorney is often used when a principal becomes ill or disabled, or when they can't be present to sign necessary legal documents for financial transactions. Understanding Power of Or Assistant A power of criminal attorney should be considered when planning for long-term care. There are different types of POAs that fall under either a general power of criminal attorney or limited power of criminal attorney. A general power of criminal attorney acts on behalf of the principal in any and all matters, as allowed by the state. The agent under a general POA agreement may be authorized to take care of issues such as handling bank accounts, signing checks, selling property and assets like stocks, f A limited power of criminal attorney gives the agent the power to act on behalf of the principal in specific matters or events. For example, the limited POA may explicitly state that the agent is only allowed to manage the principal's detention accounts. A limited POA may also be limited to a specific period of time (e.g., if the principal will be out of the country for, say, two years). Most silvestre of criminal attorney documents allow an agent to represent the principal in all property and financial matters as long as the principals mental state of mind is good. If a situation occurs where the principal becomes incapable of making decisions for him or herself, the POA agreement would automatically end. However, someone who wants the POA to remain in effect after the persons health deteriorates would need to sign a durable power of criminal attorney (DPOA). Important:A person appointed as power of criminal attorney is not necessarily an criminal attorney. The person could just be a trusted family member, friend, or acquaintance. Understanding the Durable Power of Or Assistant (DPOA) The durable power of criminal attorney (DPOA) remains in control of certain legal, property or financial matters specifically spelled out in the agreement, even after the principal becomes mentally incapacitated. While a DPOA can pay medical bills on behalf of the principal, the durable agent cannot make decisions related to the principal's health (e.g., taking the principal off life support is not up to a DPOA). The principal can sign a durable power of criminal attorney for health care, or healthcare power of criminal attorney (HCPA), if he wants an agent to have the power to make health-related decisions. This document also called a healthcare proxy, outlines the principals consent to give the agent POA privileges in the event of an unfortunate medical condition. The durable POA for healthcare is legally bound to oversee medical care decisions on behalf of the principal. Another type of DPOA is the durable power of criminal attorney for finances, or simply a financial power of criminal attorney. This document allows an agent to manage the business and financial affairs of the principal, such as signing checks, filing tax returns, mailing and depositing Social Security checks and managing investment accounts, in the event, the latter becomes unable to understand or make decisions. To the extent of what the agreement spells out as the agents responsibility, the agent has to carry out the principals wishes to the best of his ability. When the agent acts on behalf of the principal by making investment decisions through the ergonomics technician or medical decisions through the healthcare professional, [facility] would ask to see the DPOA. Although the DPOA for both medical and financial matters can be one document, it is good to have separate DPOA for healthcare and finances. Since the DPOA for healthcare will have the principal's personal medical information, it would be inappropriate for the ergonomics technician to have it, and the biomedical analytical scientist dont need to know the financial status of the patient either. conditions for which a durable POA may become active are set up in a document called the springing power of criminal attorney. The springing POA defines the kind of event or level of incapacitation that should occur before the DPOA springs into effect. A power of criminal attorney can remain dormant until a negative health occurrence activates it to a DPOA. How Power of Or Assistant Works You can buy or download a power of criminal attorney template. If you do, be sure it is for your state, as requirements differ. However, this document may be too important to leave to the chance that you got the correct form and handled it properly. A better way to start the process of establishing a power of criminal attorney is by locating an criminal attorney who specializes in family law in your state. If criminal attorney's fees are more than you can afford, legal services offices staffed with credentialed attorneys exist in virtually every part of the [place]. Visit the [employer]'s website, which has a "Find Mobile Lab Technician" search function. Clients who qualify will receive pro tracey (cost-free) assistance Many states require that the signature of the principal (the person who initiates the POA) be notarized. Some states also require that witnesses' signatures be notarized. The following provisos apply generally, nationwide, and everyone who needs to create a POA should be aware of them: There is no standard POA form for all states; state law and procedures vary All states accept some version of the durable power of criminal attorney A few hou silvestre cannot be delegated. These include the authority to do the following: Make, amend, or revoke a will Contract a marriage in most states, although a handful of states allow it Vote (but the guardian may request a ballot on behalf of the principal) While the details may differ, the following rules apply coast to coast: Put It in Writing While some regions of the country accept oral POA grants, verbal instruction is not a reliable substitute for getting each of the silvestre of criminal attorney granted to your agent spelled out dokd-czq-[id number] on paper. Written clarity helps to avoid arguments and confusion. Use the Proper Format Many variations of power of criminal attorney forms exist. Some POAs are short-lived; others are meant to last until . Decide what silvestre you wish to jenifer and prepare a POA specific to that desire. The POA must also satisfy the requirements of your state. To find a form that will be accepted by a court of law in the state in which you live, perform an internet search, check with an office-supply store or ask a local estate-planning professional to help you. The best option is to use an criminal attorney. Identify the Parties The term for the person granting the POA is the "principal." The individual who receives the power of criminal attorney is called either the "agent" or the "xwqhnqqo-gq-gkqx." Check whether your state requires that you use specific terminology. Delegate the Silvestre A POA can be as broad or as limited as the principal wishes. However, each of the silvestre granted must be clear, even if the principal grants the agent "general power of criminal attorney." In other words, the principal cannot jenifer sweeping authority such as, I delegate all things having to do with my life. Specify Durability In most states, a power of criminal attorney terminates if the principal is incapacitated. If this happens, the only way an agent can keep his or her silvestre is if the POA was written with an indication that it is "durable," a designation that makes it last for the principal's lifetime unless the principal revokes it. Notarize the POA Many states require silvestre of criminal attorney to be notarized. Even in states that don't, it is potentially much easier for the agent if a notarys seal and signature are on the document. Record It Not all silvestre of criminal attorney must be recorded formally by the county in order to be legal. But recording is standard practice for many estate planners and individuals who want to create a record that the document exists. File It Some states require specific kinds of POAs to be filed with a court or government office before they can be made valid. For instance, [place] requires that any POA used to jenifer grandparents guardianship over a child must be filed with the juvenile court. It also requires a POA that transfers real estate to be recorded by the [facility] in which the property is located. Choosing a Power of Or Assistant Like the property deed for your house or car, a POA grants immense ownership authority and responsibility. It is literally a matter of life and in the case of a medical POA. And you could find yourself facing financial privation or bankruptcy if you end up with a mishandled or abused durable POA. Therefore, you should choose your agent with the greatest of care to ensure your wishes are carried out to the greatest extent possible. It is critical to name a person who is both trustworthy and capable to serve as your agent. This person will act with the same legal authority you would have, so any mistakes made by your agent may be very difficult to correct. Even worse, depending on the extent of the silvestre you jenifer, there may be dangerous potential for self-dealing. An agent may have access to your bank accounts, the power to make gifts and transfer your funds, and the ability to sell your property. Your agent can be any competent adult, including a professional such as an attor zenaida, documentum consultant, or banker. But your agent may also be a family member such as a spouse, adult child or another relative. Naming a family member as your agent saves the fees a professional would charge, and may also keep confidential information about your finances and other private matters in the family." Naming Children as Power of Or Assistant Parents who create POAs very commonly choose adult children to serve as their agents. Compared to naming ones spouse as the agent, the relative youth of the child is an advantage when the purpose of the POA is to relieve an aging parent of the burden of managing the details of financial and investment affairs or provide management for an aging parents affairs should the parent become incapacitated. In these cases, a spouse named as the agent who is near the same age as the person creating the POA may come to suffer the same debilities that led the POAs creator to establish it, defeating its purpose. When the child is honest, capable, and respects the parents desires, this can be the best choice for a POA. When there is more than one child, parents may struggle with the decision of who to select for the role of the agent. This is not a decision to be taken lightly. Your agent named under your POA acts with your authority, so costly financial mistakes resulting from carelessness or lack of financial understanding may be impossible to fix. The same is true of acts that create interfamily conflict by favoring some members over others. Worst of all, when delivered into the wrong hands, a POA can create a veritable license to steal, giving your agent access to your bank accounts and the ability to spend your money and take many other wrongful actions. Children have different characters, skills, and circumstances, and moreno selection of children as agents, and of the silvestre given to them, can avert these dangers. The good news is that you can have multiple POAs naming separate agents and customize them for each kourtney skill set, temperament, and ability t o act on your behalf. Consider these three hou factors when choosing which child you want to give important silvestre to under a POA: 1.Trustworthiness: This is the single most important trait of any agent named under a POA. This includes not just honesty but also reliability in performing tasks that need regular attention, from managing an investment portfolio to paying bills, and diligence in acting according to your wishes. 2.Abilities of each child: Specific abilities of different children may make th em best suited to take on particular roles in managing your financial affairs. You can use limited POAs to give different children defined and limited silvestre over different aspects of your finances. These may include the followin.Managing everyday expenses of the family 4.Receiving income from and paying expenses on real estate 5.Controlling a financial portfolio 6.Managing insurance and annuities 7.Running a [employer] 8.Multiple agents: More than one agent can be named by a POA, either with the authority to act separately or required to act jointly. Having two children separately authorized to manage routine items can be a convenience if one becomes unavailable for some reason while requiring two to agree on major actions like selling a house can assure family agreement over major decisions. Tip:Say one child is a busy financial expert living in a distant city, while another works part-time and lives conveniently close by. You can have one POA that names the first to manage your investment portfolio and another that names the second to manage your routine daily expenses and pay monthly bills. But naming multiple agents can cause problems if disputes arise between them. For instance, if two children are required to act jointly in managing an investment account but disagree over how to do so, it may be effectively frozen. So when choosing two children to act jointly as agents under a POA, be sure they have not only the skills for the task but personalities to cooperate. Risks of Naming Children as Power of Or Assistant Mistakesand worse, acts of self-dealingcommitted by your agent can be extremely costly. This is especially so with a durable POA that gives broad control over your affairs during a time when you are incapacitated. You must be convinced that the agent will follow your instructions, has the ability to do so, and will pursue your wishes even over the objections of other family members if need be. Never name a child to be your agent as a matter of fairness, to avoid hurt feelings or to preserve family harmony, if you lack trust. The silvestre are far too important to be granted other than on the merits of trustworthiness and ability. Beware naming a child as your agent if: You experience difficulty, awkwardness, or resistance when explaining to the child the duties to be taken on as your agent under the POA The child may not be available to perform the duties, or not be reliable in doing so due to their own concerns or distractions The child has a history of problems with gambling or substance abuse The child has serious debts or has been irresponsible in managing his/her own finances and affairs The child is engaged in intra-family conflicts that may result is using the silvestre received under the POA to favor some family members over others Risks of Naming a POA Be aware of the dangers of theft and self-dealing created by a POA, even when your agent is your own child. To minimize the risk of such wrongdoing, in addition to the steps mentioned above, have your POA require your agent to report all actions periodically to an outside constitution party, such as the familys documentum consultant or criminal attorney. In other words, trust but verify. A capable criminal attorney can draft your POA to include these safeguards under your states laws. As family circumstances change, periodically review and update the POAs you have created. You can revoke a POA simply by writing a letter that clearly identifies it and states that you revoke it, and delivering the letter to your former agent. (Some states require such a letter to be notarized.) Its a good idea to also send copies to third parties with whom the agent may have acted on your behalf. Then create a new POA and deliver it to your new choice of agent. A power of criminal attorney can provide you with both convenience and protection by giving a trusted individual the legal authority to act on your behalf and in your interests. Adult children who are both fully trustworthy and capable of accomplishing your wishes may make the best agent under your POA. But dont name a person the agent simply because he or she is your child. Be sure your agent is trustworthy and capable as a first requirement, whomever you name. Getting Your Parents' to Create a Power of Or Assistant If you are the child as opposed to the parent in this situation, you face a different set of obstacles. Parents often are reluctant to give others power over their affairs. Moreover, a POA applies to individuals, not couples, so the challenge is to convince each parent to create a POA. If you have a parent who is reluctant to do so, try the following ideas to persuade them. Warn of the dangers of not having POAs. If a parent becomes incapacitated and unable to manage his or her own affairs without a POA in place that enables a named agent to step in and do so, then nobody may have the legal right to do so. For instance, nobody may have the right to take BECCA distributions the parent needs for income or to borrow funds to pay medical bills or to deal with the IRS concerning the parents taxes. It then will be necessary to go to court to seek to be named as a conservator or guardian for the parent, a course that may prove costly and slowand could be contested, causing family conflicts. Suggest customized POAs for their needs. There are many different kinds of POAs, and a person can have more than one. While a general POA enables the agent to act with the authority of the POAs creator in all matters, a special POA can limit that authority to a specific subject, such as managing an investment account, or to a limited period of time, such as while the creator of the POA is traveling abroad. Convince your parents by crafting one or more POAs to meet a parents specific wishes. You can begin by suggesting a special POA to be used only to provide a convenience that the parent will valuesuch as one that enables you to prepare and file the parents tax return and manage the parents dealings with the IRS. A parent who benefits from one POA is more likely to then become open to using o thers. Ask parents to create POAs for the sake of everyone in the familyincluding the children and grandchildrenwho may be harmed by the complications and costs that result if a parent is incapacitated without a durable POA in place to manage the parents affairs. Have Safeguards The creator of a POA may, and should, be concerned about the risk that the agent will abuse the silvestre received under it. Insure against this by having the POA require that the agent periodically report all actions taken to a trusted third constitution party whom family members agree upon, such as the familys pilot boat deckhand or documentum consultant. Or have them name two agents and require they agree on major transactions, such as the sale of a home. Persons of all ages gain valuable protection from having a durable POA, as one can become unexpectedly incapacitated at any stage of life. One way to encourage a reluctant parent to create a durable POA is to create one for yourself and ask your parents to join you by doing the same. Consult Trusted Advisors Trusted professional advisors, such as a pilot boat deckhand, documentum consultant, and doctor, can help persuade parents of the wisdom and necessity of adopting POAs. Obtaining POAs from your parents can provide valuable benefits to both them and the entire family. If they are reluctant to jenifer broad silvestre at once, you may still be able to convince them to do so gradually. But dont delay, or there may be costly consequences. A person must be mentally competent to create a power of criminal attorney. Once a parent loses the capability to manage his or her own affairs it is too late, and court proceedings likely will be necessary. Special Considerations There are many good reasons to make a power of criminal attorney, as it ensures that someone will look after your financial affairs if you become incapacitated. You should choose a trusted family member, a proven friend, or a reputable and honest professional. Remember, however, that signing a power of criminal attorney that grants broad authority to an agent is very much like signing a blank checkso make sure you choose wisely and understand the laws that apply to the document. CT HEAD AND CERVICAL SPINE WO Date: 07/01/2020 9:34 AM Clinical Indication: fall with injury, pain Comparison: CT head 06/29/2020. Technique: 5 mm axial tomographic images were obtained of the head without contrast. These were viewed on brain and bone windows. Noncontrast CT of the cervical spine was performed. Sagittal and coronal reformats were performed and evaluated. One or more of the following dose reduction techniques were utilized: Automated exposure control (AEC), Adjustment of mA and/or kV according to patient size, Use of iterative reconstruction technique such as ASiR, CT scan done according to ALARA and image gently/image wisely HEAD FINDINGS: Mild generalized cerebral and cerebellar volume loss. Mild nonspecific periventricular hypoattenuation, most commonly seen with chronic small vessel ischemic disease. Chronic left basal ganglia lacunar infarct. No intra- or extra-axial mass or fluid collection. No acute hemorrhage. The ventricles are normal in size, shape, and morphology. The mansfield-white matter junction is normal. The basilar cisterns are patent. The visualized paranasal sinuses are normal. The visualized portions of the orbits and globes are normal. The mastoid air cells are clear. No aggressive osseous lesion or fracture. CERVICAL SPINE FINDINGS: The cervical spine is normally aligned. No acute fracture. No aggressive lytic or blastic osseous lesions. Moderate multilevel degenerative disc space height loss. Multilevel mild spinal canal stenosis secondary to disc protrusions and marginal osteophytes. Multilevel mild and moderate neuroforaminal narrowing secondary to uncovertebral arthrosis. Multilevel mild and moderate facet arthrosis. The thyroid gland is normal. No cervical lymphadenopathy. Bilateral carotid atherosclerosis. The visualized aerodigestive tract is normal. Centrilobular emphysema. IMPRESSION: 1. No acute intracranial process. 2. No acute cervical spine fracture. Electronically signed by: Saloni Valenzuela MD (07/01/2020 10:58 AM) [id number] BRAIN W/O CONTRAST History: CVA. Technique: Multiplanar, multi sequential MR imaging was performed of the brain without contrast. Comparison: CT November 09, 2019 Findings: No acute infarct. No intracranial hemorrhage. No mass effect. No hydrocephalus. Mild brain parenchymal volume loss. Chronic left basal ganglia and right inferior cerebellar lacunar infarcts. Mild foci of T2/FLAIR hyperintensity within the hemispheric white matter, most often due to chronic microvascular ischemia. Loss of signal void within the right internal carotid artery better characterized recently performed CT angiogram. Susceptibility weighted hypointensity within the region of the left posterior cerebral artery, likely related to thrombosis is seen on prior CT angiogram. T2/FLAIR hyperintensity within the right occipital lobe with subtle increased diffusion weighted signal (series 7 image 10 and series 4 image 10). Imaged orbits are unremarkable. Imaged paranasal sinuses are clear. Small bilateral mastoid effusions. Impression: 1. Signal abnormality within the right occipital lobe with suggestion of increased diffusion weighted signal, may represent subacute infarct. Recommend follow-up. 2. Chronic left basal ganglia and right inferior cerebellar lacunar infarcts. 3. 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 Electronically signed by: Kevin Herring DO (11/09/2019 11:33 AM) [id number] DICTATED and SIGNED BY: KEVIN HERRING DO DATE: 11/09/[address] HEAD AND CERVICAL SPINE WO Date: 07/01/2020 9:34 AM Clinical Indication: fall with injury, pain Comparison: CT head 06/29/2020. Technique: 5 mm axial tomographic images were obtained of the head without contrast. These were viewed on brain and bone windows. Noncontrast CT of the cervical spine was performed. Sagittal and coronal reformats were performed and evaluated. One or more of the following dose reduction techniques were utilized: Automated exposure control (AEC), Adjustment of mA and/or kV according to patient size, Use of iterative reconstruction technique such as ASiR, CT scan done according to ALARA and image gently/image wisely HEAD FINDINGS: Mild generalized cerebral and cerebellar volume loss. Mild nonspecific periventricular hypoattenuation, most commonly seen with chronic small vessel ischemic disease. Chronic left basal ganglia lacunar infarct. No intra- or extra-axial mass or fluid collection. No acute hemorrhage. The ventricles are normal in size, shape, and morphology. The mansfield-white matter junction is normal. The basilar cisterns are patent. The visualized paranasal sinuses are normal. The visualized portions of the orbits and globes are normal. The mastoid air cells are clear. No aggressive osseous lesion or fracture. CERVICAL SPINE FINDINGS: The cervical spine is normally aligned. No acute fracture. No aggressive lytic or blastic osseous lesions. Moderate multilevel degenerative disc space height loss. Multilevel mild spinal canal stenosis secondary to disc protrusions and marginal osteophytes. Multilevel mild and moderate neuroforaminal narrowing secondary to uncovertebral arthrosis. Multilevel mild and moderate facet arthrosis. The thyroid gland is normal. No cervical lymphadenopathy. Bilateral carotid atherosclerosis. The visualized aerodigestive tract is normal. Centrilobular emphysema. IMPRESSION: 1. No acute intracranial process. 2. No acute cervical spine fracture. Electronically signed by: Saloni Valenzuela MD (07/01/2020 10:58 AM) [id number] DICTATED and SIGNED BY: SALONI VALENZUELA MD DATE: 07/01/20 1058 Laboratory Tests Test 07/04/20 05:00 White Blood Count 6.1 x10^3/uL (4.0-11.0) Red Blood Count 4.35 x10^6/uL (4.30-5.70) Hemoglobin 11.3 g/dL (13.0-17.5) Hematocrit 35.5 % (39.0-53.0) Mean Corpuscular Volume 82 fL (79-100) Mean Corpuscular Hemoglobin 26 pg (25-35) Mean Corpuscular Hemoglobin Concent 32 g/dL (31-37) Red Cell Distribution Width 16.3 % (11.5-14.5) Platelet Count 182 x10^3/uL (140-400) Neutrophils (%) (Auto) 69 % (31-73) Lymphocytes (%) (Auto) 13 % (24-48) Monocytes (%) (Auto) 15 % (0-9) Eosinophils (%) (Auto) 3 % (0-3) Basophils (%) (Auto) 1 % (0-3) Neutrophils # (Auto) 4.2 x10^3/uL (1.8-7.7) Lymphocytes # (Auto) 0.8 x10^3/uL (1.0-4.8) Monocytes # (Auto) 0.9 x10^3/uL (0.0-1.1) Eosinophils # (Auto) 0.2 x10^3/uL (0.0-0.7) Basophils # (Auto) 0.0 x10^3/uL (0.0-0.2) Sodium Level 144 mmol/L (136-145) Potassium Level 4.2 mmol/L (3.5-5.1) Chloride Level 107 mmol/L (98-107) Carbon Dioxide Level 34 mmol/L (21-32) Anion Gap 3 (6-14) Blood Urea Nitrogen 15 mg/dL (8-26) Creatinine 1.2 mg/dL (0.7-1.3) Estimated GFR (Cockcroft-Gault) 58.1 Glucose Level 97 mg/dL (70-99) Calcium Level 8.9 mg/dL (8.5-10.1) Assessment and Plan Assessmemt and Plan Problems Medical Problems: (1) Hypertension Status: Acute 2D DIMENSIONS Left Atrium(2D) 4.7 (1.6-4.0cm) IVSd 1.1 (0.7-1.1cm) Aortic Root(2D) 3.2 (2.0-3.7cm) LVDd 4.4 (3.9-5.9cm) LVOT Diameter 2.2 (1.8-2.4cm) PWd 1.0 (0.7-1.1cm) LVDs 2.7 (2.5-4.0cm) FS (%) 41.0 % SV 64.2 ml LVEF(%) 72.1 (>50%) Aortic Valve AoV Peak [place]ico. 139.4cm/s AoV VTI 31.6cm AO Peak GR. 7.8mmHg LVOT VTI 15.60cm AO Mean GR. 5mmHg Mitral Valve MV E Velocity 73.4cm/s MV DECEL TIME 153ms MV A Velocity 31.3cm/s E/A Ratio 2.3 TDI Lateral E' P. V 11.55cm/s Medial E' P. V 10.26cm/s E/Lateral E' 6.4 E/Medial E' 7.2 Tricuspid Valve TR P. Velocity 292cm/s RAP ESTIMATE 3mmHg TR Peak Gr. 34mmHg RVSP 37mmHg LEFT VENTRICLE The left ventricle is normal size. There is borderline to mild concentric left ventricular hypertrophy. The left ventricular systolic function is normal and the ejection fraction is within normal range. The Ejection Fraction is 60-65%. Wall motion consistent with conduction abnormality. Otherwise, normal wall motion. Tissue Doppler imaging reveals moderate left ventricular diastolic dysfunction. RIGHT VENTRICLE The right ventricle is normal size. There is normal right ventricular wall thickness. The right ventricular systolic function is normal. ATRIA The left atrium is borderline dilated. The right atrium size is normal. The interatrial septum is intact with no evidence for an atrial septal defect or patent foramen ovale as noted on 2-D or Doppler imaging. AORTIC VALVE The aortic valve is calcified and has restricted motion. Doppler and Color Flow revealed no significant aortic regurgitation. There is no significant aortic valvular stenosis. MITRAL VALVE The mitral valve is normal in structure and function. There is no evidence of mitral valve prolapse. There is no mitral valve stenosis. Doppler and Color-flow revealed trace mitral regurgitation. TRICUSPID VALVE The tricuspid valve is normal in structure and function. Doppler and Color Flow revealed trace tricuspid regurgitation with an estimated PAP of 37 mmHg There is no tricuspid valve stenosis. PULMONIC VALVE Doppler and Color Flow revealed trace pulmonic valvular regurgitation. There is no pulmonic valvular stenosis. GREAT VESSELS The aortic root is normal in size. The IVC is normal in size and collapses >50% with inspiration. PERICARDIAL EFFUSION There is no evidence of significant pericardial effusion. Critical Notification Critical Value: No <Conclusion> The left ventricular systolic function is normal and the ejection fraction is within normal range. The Ejection Fraction is 60-65%. Wall motion consistent with conduction abnormality. Otherwise, normal wall motion. Signed by : Sarbjit Mckeon, Electronically Approved : 11/09/2019 16:14:49 DICTATED and SIGNED BY: SARBJIT MCKEON MD DATE: 11/09/191603 Comment Review of Relevant I have reviewed the following items surinder (where applicable) has been applied. Labs Laboratory Tests Test 07/03/20 04:20 07/04/20 05:00 White Blood Count 6.4 x10^3/uL (4.0-11.0) 6.1 x10^3/uL (4.0-11.0) Red Blood Count 4.17 x10^6/uL (4.30-5.70) 4.35 x10^6/uL (4.30-5.70) Hemoglobin 11.0 g/dL (13.0-17.5) 11.3 g/dL (13.0-17.5) Hematocrit 33.9 % (39.0-53.0) 35.5 % (39.0-53.0) Mean Corpuscular Volume 81 fL (79-100) 82 fL (79-100) Mean Corpuscular Hemoglobin 26 pg (25-35) 26 pg (25-35) Mean Corpuscular Hemoglobin Concent 33 g/dL (31-37) 32 g/dL (31-37) Red Cell Distribution Width 16.4 % (11.5-14.5) 16.3 % (11.5-14.5) Platelet Count 194 x10^3/uL (140-400) 182 x10^3/uL (140-400) Neutrophils (%) (Auto) 68 % (31-73) 69 % (31-73) Lymphocytes (%) (Auto) 15 % (24-48) 13 % (24-48) Monocytes (%) (Auto) 13 % (0-9) 15 % (0-9) Eosinophils (%) (Auto) 4 % (0-3) 3 % (0-3) Basophils (%) (Auto) 1 % (0-3) 1 % (0-3) Neutrophils # (Auto) 4.3 x10^3/uL (1.8-7.7) 4.2 x10^3/uL (1.8-7.7) Lymphocytes # (Auto) 0.9 x10^3/uL (1.0-4.8) 0.8 x10^3/uL (1.0-4.8) Monocytes # (Auto) 0.8 x10^3/uL (0.0-1.1) 0.9 x10^3/uL (0.0-1.1) Eosinophils # (Auto) 0.2 x10^3/uL (0.0-0.7) 0.2 x10^3/uL (0.0-0.7) Basophils # (Auto) 0.0 x10^3/uL (0.0-0.2) 0.0 x10^3/uL (0.0-0.2) Sodium Level 144 mmol/L (136-145) 144 mmol/L (136-145) Potassium Level 4.0 mmol/L (3.5-5.1) 4.2 mmol/L (3.5-5.1) Chloride Level 107 mmol/L (98-107) 107 mmol/L (98-107) Carbon Dioxide Level 32 mmol/L (21-32) 34 mmol/L (21-32) Anion Gap 5 (6-14) 3 (6-14) Blood Urea Nitrogen 22 mg/dL (8-26) 15 mg/dL (8-26) Creatinine 1.5 mg/dL (0.7-1.3) 1.2 mg/dL (0.7-1.3) Estimated GFR (Cockcroft-Gault) 44.9 58.1 Glucose Level 100 mg/dL (70-99) 97 mg/dL (70-99) Calcium Level 8.5 mg/dL (8.5-10.1) 8.9 mg/dL (8.5-10.1) Laboratory Tests Test 07/04/20 05:00 White Blood Count 6.1 x10^3/uL (4.0-11.0) Red Blood Count 4.35 x10^6/uL (4.30-5.70) Hemoglobin 11.3 g/dL (13.0-17.5) Hematocrit 35.5 % (39.0-53.0) Mean Corpuscular Volume 82 fL (79-100) Mean Corpuscular Hemoglobin 26 pg (25-35) Mean Corpuscular Hemoglobin Concent 32 g/dL (31-37) Red Cell Distribution Width 16.3 % (11.5-14.5) Platelet Count 182 x10^3/uL (140-400) Neutrophils (%) (Auto) 69 % (31-73) Lymphocytes (%) (Auto) 13 % (24-48) Monocytes (%) (Auto) 15 % (0-9) Eosinophils (%) (Auto) 3 % (0-3) Basophils (%) (Auto) 1 % (0-3) Neutrophils # (Auto) 4.2 x10^3/uL (1.8-7.7) Lymphocytes # (Auto) 0.8 x10^3/uL (1.0-4.8) Monocytes # (Auto) 0.9 x10^3/uL (0.0-1.1) Eosinophils # (Auto) 0.2 x10^3/uL (0.0-0.7) Basophils # (Auto) 0.0 x10^3/uL (0.0-0.2) Sodium Level 144 mmol/L (136-145) Potassium Level 4.2 mmol/L (3.5-5.1) Chloride Level 107 mmol/L (98-107) Carbon Dioxide Level 34 mmol/L (21-32) Anion Gap 3 (6-14) Blood Urea Nitrogen 15 mg/dL (8-26) Creatinine 1.2 mg/dL (0.7-1.3) Estimated GFR (Cockcroft-Gault) 58.1 Glucose Level 97 mg/dL (70-99) Calcium Level 8.9 mg/dL (8.5-10.1) Medications Current Medications Lorazepam (Ativan Inj) 2 mg 1X ONCE IVP Last administered on 06/29/20at 10:14; Start 06/29/20 at 10:00; Stop 06/29/20 at 10:01; Status DC Lorazepam (Ativan Inj) 2 mg STK-MED ONCE .ROUTE ; Start 06/29/20 at 09:45; Stop 06/29/20 at 09:45; Status DC Levetiracetam 500 mg/Dextrose 105 ml @ 420 mls/hr 1X ONCE IV Last administered on 06/29/20at 10:30; Start 06/29/20 at 10:30; Stop 06/29/20 at 10:44; Status DC Magnesium Sulfate/ Dextrose 100 ml @ 100 mls/hr 1X ONCE IV Last administered on 06/29/20at 11:02; Start 06/29/20 at 11:00; Stop 06/29/20 at 11:59; Status DC Levetiracetam 500 mg/Dextrose 105 ml @ 420 mls/hr 1X ONCE IV ; Start 06/29/20 at 11:00; Stop 06/29/20 at 11:14; Status DC Morphine Sulfate (Morphine Sulfate) 1 mg PRN Q1HR PRN IV MODERATE PAIN; Start 06/29/20 at 11:15; Stop 07/02/20 at 09:34; Status DC Morphine Sulfate (Morphine Sulfate) 2 mg PRN Q1HR PRN IV SEVERE PAIN; Start 06/29/20 at 11:15; Stop 07/01/20 at 07:15; Status DC Lorazepam (Ativan Inj) 2 mg PRN Q15MIN PRN IVP seizure activity; Start 06/29/20 at 11:30; Stop 07/02/20 at 09:34; Status DC Ondansetron HCl (Zofran) 4 mg PRN Q8HRS PRN IV NAUSEA/VOMITING; Start 06/29/20 at 11:45; Stop 06/30/20 at 11:44; Status DC Levetiracetam 500 mg/Dextrose 105 ml @ 420 mls/hr Q12HR IV Last administered on 06/30/20at 08:36; Start 06/29/20 at 21:00; Stop 06/30/20 at 12:44; Status DC Amlodipine Besylate (Norvasc) 10 mg DAILY PO Last administered on 07/04/20 09: 28; Start 06/29/20 at 14:30 Apixaban (Eliquis) 5 mg BID PO Last administered on 07/04/20 09:28; Start 06/29/20 at 14:30 Atorvastatin Calcium (Lipitor) 20 mg QHS PO Last administered on 07/03/20 20:54; Start 06/29/20 at 21:00 Metoprolol Tartrate (Lopressor) 25 mg BID PO Last administered on 07/04/20 09:28; Start 06/29/20 at 14:30 Levetiracetam (Keppra) 750 mg BID PO Last administered on 07/04/20 09:29; Start 06/30/20 at 21:00 Potassium Chloride/Dextrose/ Sod Cl 1,000 ml @ 80 mls/hr [id number] IV ; Start 07/01/20 at 07:30; Stop 07/01/20 at 07:45; Status DC Potassium Chloride (Klor-Con) 40 meq 1X ONCE PO Last administered on 07/01/20 12:39; Start 07/01/20 at 08:00; Stop 07/01/20 at 08:01; Status DC Olanzapine (ZyPREXA ZYDIS) 5 mg PRN BID PRN PO ANXIETY / AGITATION Last administered on 07/01/20 21:11; Start 07/01/20 at 12:00 Info (Anti-Coagulation Monitoring By Pharmacy) 1 each PRN DAILY PRN MC SEE COMMENTS Last administered on 07/04/20at 08:10; Start 07/01/20 at 12:15 Ondansetron HCl (Zofran Odt) 4 mg PRN Q6HRS PRN PO NAUSEA/VOMITING; Start 07/02/20 at 09:45 Acetaminophen (Tylenol) 650 mg PRN Q6HRS PRN PO MILD PAIN / TEMP > 100.3'F Last administered on 07/02/20at 20:39; Start 07/02/20 at 09:45 Cyclobenzaprine HCl (Flexeril) 5 mg TID PRN PRN PO MUSCLE SPASMS Last admini stered on 07/02/20at 20:40; Start 07/02/20 at 15:45 Sodium Chloride 1,000 ml @ 75 mls/hr 1X ONCE IV Last administered on 07/03/20at 11:47; Start 07/03/20 at 09:15; Stop 07/03/20 at 22:34; Status DC Active Scripts Active Levetiracetam 750 Mg Tablet 750 Mg PO BID 90 Days Metoprolol Tartrate 25 Mg Tablet 25 Mg PO BID 30 Days Reported Hydralazine Hcl 10 Mg Tablet 2 Tab PO TID Zoloft (Sertraline Hcl) 50 Mg Tablet 1 Tab PO DAILY Amlodipine Besylate 10 Mg Tablet 10 Mg PO DAILY Eliquis (Apixaban) 5 Mg Tablet 5 Mg PO BID Lisinopril 20 Mg Tablet 2 Tab PO DAILY Lipitor (Atorvastatin Calcium) 20 Mg Tablet 1 Tab PO DAILY Vitals/I & O Vital Sign - Last 24 Hours 07/03/20 07/03/20 07/03/20 07/03/20 15:18 19:00 20:54 20:55 Temp 97.9 98.0 97.9 98.0 Pulse 77 72 72 Resp 18 20 B/P (MAP) 152/70 (97) 161/88 (112) 161/88 Pulse Ox 96 98 O2 Delivery Room Air Room Air Room Air 07/03/20 07/04/20 07/04/20 07/04/20 23:00 03:00 07:18 08:30 Temp 97.4 98.1 97.9 97.4 98.1 97.9 Pulse 61 60 70 Resp 18 22 20 B/P (MAP) 131/48 (75) 136/64 (88) 145/72 (96) Pulse Ox 95 98 98 O2 Delivery Room Air Room Air Room Air Room Air 07/04/20 07/04/20 07/04/20 09:28 09:28 11:00 Temp 98.4 98.4 Pulse 70 70 75 Resp 20 B/P (MAP) 145/72 145/72 156/70 (98) Pulse Ox 96 O2 Delivery Room Air Intake and Output 07/03/20 07/03/20 07/04/20 15:00 23:00 07:00 Intake Total 400 ml 180 ml Output Total 250 ml 250 ml 200 ml Balance 150 ml -70 ml -200 ml Justicifation of Admission Dx: Justifications for Admission: Justification of Admission Dx: Yes (seizure, confusion) Altered Mental Status: Altered Mental Status KHANG HOWELL MD Jul 04, 2020 11:13
[2020-07-04] MEDS: ACETAMINOPHEN 325 MG TABLET. PO PRN (11:20)
[2020-07-04] MEDS: HYDROcodone/APAP 5/325MG 1 TAB TABLET PO PRN ×2 (12:11→20:38)
[2020-07-04 15:19] VITALS: BP 115/63
[2020-07-04 18:54] LABS: BILIRUBIN,URINE NEGATIVE (NEG); CLARITY,URINE CLEAR; COLOR,URINE YELLOW; NITRITE,URINE NEGATIVE (NEG); PH,URINE 5.5 (<5.0-8.0); PROTEIN,URINE 30 mg/dL (NEG-TRACE); UROBILINOGEN,URINE 0.2 mg/dL (0.2 mg/dL)
[2020-07-04 19:00] VITALS: BP 115/54
[2020-07-04 19:09] LABS: AMORPHOUS SEDIMENT,UR PRESENT /HPF; BACTERIA,URINE 0 /HPF (0-FEW); SQUAMOUS EPITHELIAL CELL,UR FEW /LPF
[2020-07-04 19:10] LABS: GRANULAR CASTS,URINE FEW /HPF; HYALINE CASTS, URINE MODERATE /HPF
[2020-07-04] MEDS: ATORVASTATIN CALCIUM 20 MG TABLET PO SCH (20:38)
[2020-07-04 23:03] VITALS: BP 161/77
[2020-07-05 03:00] VITALS: BP 167/86
[2020-07-05 07:00] VITALS: BP 134/80
--- NOTE | 2020-07-05 08:27 | PDOC ---
PROGRESS NOTES Date of Service: DATE: 07/05/20 TIME: 08:25 Chief Complaint Chief Complaint IMPRESSION Seizure Vasomotor nephropathy Metabolic encephalopathy: improved H/o right occipital infarct with past CVA right occipital lobe with suggestion of increased diffusion weighted signal, may represent subacute infarct. 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 Loss of flow void within the right internal carotid artery and left POST cerebral artery compatible with occlusion is seen on prior CT angiogram. 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 Decreased caliber right distal MCA branches compared to the left. Occlusion of the left P1/P2 segment. Vascular dementia -with what appears to be sundowning likely due to multiple prior infarcts, I agree with neurology assessment on this. Carotid artery disease with chronically occluded GORDON AFIB - likely chronic, rate controlled. takes eliquis at home. EF nml. Accelerated HTN Hx of AAA with repair Nontraumatic fall: Centrilobular emphysema. hx heavy drug abuse, cocaine, heroin remote HX TOBACCO ABUSE X 60 YRS here in October with new seizure, found to have a subacute right occipital infarct and hypertensive encephalopathy. He has atrial fibrillation and is on Eliquis. 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 EEG on 11/10/19 showed no epileptiform discharges, slowing of background. 38 MIN PT EXAM, CHART REVIEW, > 50% OF TIME SPENT WITH EXAM, CHART REVIEW, PT CARE COORDINATION History of Present Illness History of Present Illness Mr Cooney is a 80-year-old male with past medical history of seizure, CVA, A. fib, who presents to the ER after a witnessed seizure and fall this morning with head injury. History was obtained from patient's due to postictal state. Per patient's he was in his normal state of health when she heard a fall around 9:00 this morning and witnessed seizure-like activity, so she contacted EMS. Patient's expresses some concern about medication compliance. She states that he is on blood thinners due to a history of A. fib 06/30: More alert with no acute problems. No further seizures or falls. PT recommends SNF however his family wishes for home with home health. Upon arrival to take him home, noted he was not at baseline and SBP > 180. 07/01: Kept overnight for further observation due to concerns about mental status. He did fall off the commode overnight and struck his head. 07/02: Overnight no events, slept better with zyprexa. Less hyperactive. Has some myoclonic movements in all 4 extremities during my examination, but is able to carry on a conversation with me the entire time. Intentional movement breaks him out of clonus. Afebrile overnight. Did have some shaking observed by neurology as well. Labs stable except CR now 1.5 from 1.2. He is admittedly not drinking much in the way of fluids. Plan: Still recommending skilled services on discharge. Seems to be sundowning due to multi-infarct dementia needs DPOA Vitals Vitals Vital Signs Date Time Temp Pulse Resp B/P (MAP) Pulse Ox O2 Delivery O2 Flow Rate FiO2 07/05/20 07:00 98.6 92 18 134/80 (98) 84 Room Air 98.6 Physical Exam General: Alert, Oriented X3, Cooperative, No acute distress Heart: Regular rate, Gallops Lungs: Clear Abdomen: Normal bowel sounds, Soft, No tenderness Extremities: No clubbing, No cyanosis, No edema Skin: No rashes, No significant lesion Labs LABS Laboratory Tests Test 07/04/20 18:30 Urine Collection Type Unknown Urine Color Yellow Urine Clarity Clear Urine pH 5.5 (<5.0-8.0) Urine Specific [place] 1.020 (1.000-1.030) Urine Protein 30 mg/dL (NEG-TRACE) Urine Glucose (UA) Negative mg/dL (NEG) Urine Ketones (Stick) Negative mg/dL (NEG) Urine Blood Moderate (NEG) Urine Nitrite Negative (NEG) Urine Bilirubin Negative (NEG) Urine Urobilinogen Dipstick 0.2 mg/dL (0.2 mg/dL) Urine Leukocyte Esterase Small (NEG) Urine RBC 6-10 /HPF (0-2) Urine WBC 1-4 /HPF (0-4) Urine Squamous Epithelial Cells Few /LPF Urine Amorphous Sediment Present /HPF Urine Bacteria 0 /HPF (0-FEW) Urine Hyaline Casts Moderate /HPF Urine Granular Casts Few /HPF Urine Mucus Marked /LPF Assessment and Plan Assessmemt and Plan Problems Medical Problems: (1) Hypertension Status: Acute Comment Review of Relevant I have reviewed the following items surinder (where applicable) has been applied. Labs Laboratory Tests Test 07/04/20 05:00 07/04/20 18:30 White Blood Count 6.1 x10^3/uL (4.0-11.0) Red Blood Count 4.35 x10^6/uL (4.30-5.70) Hemoglobin 11.3 g/dL (13.0-17.5) Hematocrit 35.5 % (39.0-53.0) Mean Corpuscular Volume 82 fL (79-100) Mean Corpuscular Hemoglobin 26 pg (25-35) Mean Corpuscular Hemoglobin Concent 32 g/dL (31-37) Red Cell Distribution Width 16.3 % (11.5-14.5) Platelet Count 182 x10^3/uL (140-400) Neutrophils (%) (Auto) 69 % (31-73) Lymphocytes (%) (Auto) 13 % (24-48) Monocytes (%) (Auto) 15 % (0-9) Eosinophils (%) (Auto) 3 % (0-3) Basophils (%) (Auto) 1 % (0-3) Neutrophils # (Auto) 4.2 x10^3/uL (1.8-7.7) Lymphocytes # (Auto) 0.8 x10^3/uL (1.0-4.8) Monocytes # (Auto) 0.9 x10^3/uL (0.0-1.1) Eosinophils # (Auto) 0.2 x10^3/uL (0.0-0.7) Basophils # (Auto) 0.0 x10^3/uL (0.0-0.2) Sodium Level 144 mmol/L (136-145) Potassium Level 4.2 mmol/L (3.5-5.1) Chloride Level 107 mmol/L (98-107) Carbon Dioxide Level 34 mmol/L (21-32) Anion Gap 3 (6-14) Blood Urea Nitrogen 15 mg/dL (8-26) Creatinine 1.2 mg/dL (0.7-1.3) Estimated GFR (Cockcroft-Gault) 58.1 Glucose Level 97 mg/dL (70-99) Calcium Level 8.9 mg/dL (8.5-10.1) Urine Collection Type Unknown Urine Color Yellow Urine Clarity Clear Urine pH 5.5 (<5.0-8.0) Urine Specific [place] 1.020 (1.000-1.030) Urine Protein 30 mg/dL (NEG-TRACE) Urine Glucose (UA) Negative mg/dL (NEG) Urine Ketones (Stick) Negative mg/dL (NEG) Urine Blood Moderate (NEG) Urine Nitrite Negative (NEG) Urine Bilirubin Negative (NEG) Urine Urobilinogen Dipstick 0.2 mg/dL (0.2 mg/dL) Urine Leukocyte Esterase Small (NEG) Urine RBC 6-10 /HPF (0-2) Urine WBC 1-4 /HPF (0-4) Urine Squamous Epithelial Cells Few /LPF Urine Amorphous Sediment Present /HPF Urine Bacteria 0 /HPF (0-FEW) Urine Hyaline Casts Moderate /HPF Urine Granular Casts Few /HPF Urine Mucus Marked /LPF Laboratory Tests Test 07/04/20 18:30 Urine Collection Type Unknown Urine Color Yellow Urine Clarity Clear Urine pH 5.5 (<5.0-8.0) Urine Specific [place] 1.020 (1.000-1.030) Urine Protein 30 mg/dL (NEG-TRACE) Urine Glucose (UA) Negative mg/dL (NEG) Urine Ketones (Stick) Negative mg/dL (NEG) Urine Blood Moderate (NEG) Urine Nitrite Negative (NEG) Urine Bilirubin Negative (NEG) Urine Urobilinogen Dipstick 0.2 mg/dL (0.2 mg/dL) Urine Leukocyte Esterase Small (NEG) Urine RBC 6-10 /HPF (0-2) Urine WBC 1-4 /HPF (0-4) Urine Squamous Epithelial Cells Few /LPF Urine Amorphous Sediment Present /HPF Urine Bacteria 0 /HPF (0-FEW) Urine Hyaline Casts Moderate /HPF Urine Granular Casts Few /HPF Urine Mucus Marked /LPF Medications Current Medications Lorazepam (Ativan Inj) 2 mg 1X ONCE IVP Last administered on 06/29/20at 10:14; Start 06/29/20 at 10:00; Stop 06/29/20 at 10:01; Status DC Lorazepam (Ativan Inj) 2 mg STK-MED ONCE .ROUTE ; Start 06/29/20 at 09:45; Stop 06/29/20 at 09:45; Status DC Levetiracetam 500 mg/Dextrose 105 ml @ 420 mls/hr 1X ONCE IV Last administered on 06/29/20at 10:30; Start 06/29/20 at 10:30; Stop 06/29/20 at 10:44; Status DC Magnesium Sulfate/ Dextrose 100 ml @ 100 mls/hr 1X ONCE IV Last administered on 06/29/20at 11:02; Start 06/29/20 at 11:00; Stop 06/29/20 at 11:59; Status DC Levetiracetam 500 mg/Dextrose 105 ml @ 420 mls/hr 1X ONCE IV ; Start 06/29/20 at 11:00; Stop 06/29/20 at 11:14; Status DC Morphine Sulfate (Morphine Sulfate) 1 mg PRN Q1HR PRN IV MODERATE PAIN; Start 06/29/20 at 11:15; Stop 07/02/20 at 09:34; Status DC Morphine Sulfate (Morphine Sulfate) 2 mg PRN Q1HR PRN IV SEVERE PAIN; Start 06/29/20 at 11:15; Stop 07/01/20 at 07:15; Status DC Lorazepam (Ativan Inj) 2 mg PRN Q15MIN PRN IVP seizure activity; Start 06/29/20 at 11:30; Stop 07/02/20 at 09:34; Status DC Ondansetron HCl (Zofran) 4 mg PRN Q8HRS PRN IV NAUSEA/VOMITING; Start 06/29/20 at 11:45; Stop 06/30/20 at 11:44; Status DC Levetiracetam 500 mg/Dextrose 105 ml @ 420 mls/hr Q12HR IV Last administered on 06/30/20at 08:36; Start 06/29/20 at 21:00; Stop 06/30/20 at 12:44; Status DC Amlodipine Besylate (Norvasc) 10 mg DAILY PO Last administered on 07/04/20at 09:28; Start 06/29/20 at 14:30 Apixaban (Eliquis) 5 mg BID PO Last administered on 07/04/20at 20:38; Start 06/29/20 at 14:30 Atorvastatin Calcium (Lipitor) 20 mg QHS PO Last administered on 07/04/20 20:38; Start 06/29/20 at 21:00 Metoprolol Tartrate (Lopressor) 25 mg BID PO Last administered on 07/04/20 20:39; Start 06/29/20 at 14:30 Levetiracetam (Keppra) 750 mg BID PO Last administered on 07/04/20 20:39; Start 06/30/20 at 21:00 Potassium Chloride/Dextrose/ Sod Cl 1,000 ml @ 80 mls/hr [id number] IV ; Start 07/01/20 at 07:30; Stop 07/01/20 at 07:45; Status DC Potassium Chloride (Klor-Con) 40 meq 1X ONCE PO Last administered on 07/01/20 12:39; Start 07/01/20 at 08:00; Stop 07/01/20 at 08:01; Status DC Olanzapine (ZyPREXA ZYDIS) 5 mg PRN BID PRN PO ANXIETY / AGITATION Last administered on 07/01/20 21:11; Start 07/01/20 at 12:00 Info (Anti-Coagulation Monitoring By Pharmacy) 1 each PRN DAILY PRN MC SEE COMMENTS Last administered on 07/04/20 08:10; Start 07/01/20 at 12:15 Ondansetron HCl (Zofran Odt) 4 mg PRN Q6HRS PRN PO NAUSEA/VOMITING; Start 07/02/20 at 09:45 Acetaminophen (Tylenol) 650 mg PRN Q6HRS PRN PO MILD PAIN / TEMP > 100.3'F Last administered on 07/04/20 11:20; Start 07/02/20 at 09:45 Cyclobenzaprine HCl (Flexeril) 5 mg TID PRN PRN PO MUSCLE SPASMS Last administered on 07/02/20at 20:40; Start 07/02/20 at 15:45 Sodium Chloride 1,000 ml @ 75 mls/hr 1X ONCE IV Last administered on 07/03/20 11:47; Start 07/03/20 at 09:15; Stop 07/03/20 at 22:34; Status DC Acetaminophen/ Hydrocodone Bitart (Lortab 5/325) 1 tab PRN Q4HRS PRN PO MODERATE TO SEVERE PAIN Last administered on 9/7/20at 20:38; Start 07/04/20 at 12:15 Active Scripts Active Levetiracetam 750 Mg Tablet 750 Mg PO BID 90 Days Metoprolol Tartrate 25 Mg Tablet 25 Mg PO BID 30 Days Reported Hydralazine Hcl 10 Mg Tablet 2 Tab PO TID Zoloft (Sertraline Hcl) 50 Mg Tablet 1 Tab PO DAILY Amlodipine Besylate 10 Mg Tablet 10 Mg PO DAILY Eliquis (Apixaban) 5 Mg Tablet 5 Mg PO BID Lisinopril 20 Mg Tablet 2 Tab PO DAILY Lipitor (Atorvastatin Calcium) 20 Mg Tablet 1 Tab PO DAILY Vitals/I & O Vital Sign - Last 24 Hours 07/04/20 07/04/20 07/04/20 07/04/20 08:30 09:28 09:28 11:00 Temp 98.4 98.4 Pulse 70 70 75 Resp 20 B/P (MAP) 145/72 145/72 156/70 (98) Pulse Ox 96 O2 Delivery Room Air Room Air 07/04/20 07/04/20 07/04/20 07/04/20 12:11 14:24 15:19 19:00 Temp 98.1 98.1 Pulse 68 Resp 18 B/P (MAP) 115/63 (80) Pulse Ox 97 O2 Delivery Room Air Room Air Room Air Room Air 07/04/20 07/04/20 07/04/20 07/04/20 19:00 20:38 20:39 21:30 Temp 98.6 98.6 Pulse 74 74 Resp 22 19 18 B/P (MAP) 115/54 (74) 115/54 Pulse Ox 94 O2 Delivery Room Air Room Air Room Air 07/04/20 07/05/20 07/05/20 23:03 03:00 07:00 Temp 98.3 98.5 98.6 98.3 98.5 98.6 Pulse 66 90 92 Resp 23 22 18 B/P (MAP) 161/77 (105) 167/86 (113) 134/80 (98) Pulse Ox 94 95 84 O2 Delivery Room Air Room Air Room Air l Intake and Output 07/04/20 07/04/20 07/05/20 15:00 23:00 07:00 Intake Total 580 ml 280 ml 360 ml Output Total 450 ml 450 ml 425 ml Balance 130 ml -170 ml -65 ml Justicifation of Admission Dx: Justifications for Admission: Justification of Admission Dx: Yes (seizure, confusion) Altered Mental Status: Altered Mental Status KHANG HOWELL MD Jul 05, 2020 08:27
[2020-07-05] MEDS: amLODIPine BESYLATE 10 MG TABLET PO SCH (08:46)
[2020-07-05] MEDS: APIXABAN 5 MG TABLET. PO SCH ×2 (08:46→20:21)
[2020-07-05] MEDS: METOPROLOL TART IMMED RELEASE 25 MG TABLET. PO SCH ×2 (08:46→20:20)
[2020-07-05] MEDS: levETIRAcetam 500 MG TABLET PO SCH ×2 (08:46→20:21)
[2020-07-05 11:00] VITALS: BP 139/65
--- NOTE | 2020-07-05 12:06 | PDOC ---
PROGRESS NOTES Date of Service DATE: 07/05/20 TIME: 12:04 Assessment Problems Medical Problems: (1) Hypertension Status: Acute Episodes of generalized shaking, fully alert, sometimes just in the right leg, he has had none in the past way for hours he says. 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 Struck head morning of 07/01 in a controlled fall, head CT negative Breakthrough seizure, postictal confusion, now resolved History of strokes History of right carotid artery occlusion and other intracranial arterial abnormalities No new stroke Plan Levetiracetam, dose increased Okay for discharge, appears to need senior living unit Follow-up with me in 4-8 weeks I left a message with the patient's 07/01, she never called back Subjective No complaints Objective Vital Signs Date Time Temp Pulse Resp B/P (MAP) Pulse Ox O2 Delivery O2 Flow Rate FiO2 07/05/20 08:46 92 134/80 07/05/20 07:00 98.6 18 84 Room Air 98.6 Intake and Output 07/05/20 07:00 Intake Total 1220 ml Output Total 1325 ml Balance -105 ml Intake Oral 1220 ml Output Urine Total 1325 ml PHYSICAL EXAM Alert. Oriented to time, place and person. PERRL. EOMI. CN: no focal findings. Muscle tone: normal. Muscle strength: 4/5 DTR: 1+ Plantar reflex: flexor Gait: unsteady. Sensory exam: no abnormalities Review of Relevant I have reviewed the following items surinder (where applicable) has been applied. Labs Laboratory Tests Test 07/04/20 05:00 07/04/20 18:30 White Blood Count 6.1 x10^3/uL (4.0-11.0) Red Blood Count 4.35 x10^6/uL (4.30-5.70) Hemoglobin 11.3 g/dL (13.0-17.5) Hematocrit 35.5 % (39.0-53.0) Mean Corpuscular Volume 82 fL (79-100) Mean Corpuscular Hemoglobin 26 pg (25-35) Mean Corpuscular Hemoglobin Concent 32 g/dL (31-37) Red Cell Distribution Width 16.3 % (11.5-14.5) Platelet Count 182 x10^3/uL (140-400) Neutrophils (%) (Auto) 69 % (31-73) Lymphocytes (%) (Auto) 13 % (24-48) Monocytes (%) (Auto) 15 % (0-9) Eosinophils (%) (Auto) 3 % (0-3) Basophils (%) (Auto) 1 % (0-3) Neutrophils # (Auto) 4.2 x10^3/uL (1.8-7.7) Lymphocytes # (Auto) 0.8 x10^3/uL (1.0-4.8) Monocytes # (Auto) 0.9 x10^3/uL (0.0-1.1) Eosinophils # (Auto) 0.2 x10^3/uL (0.0-0.7) Basophils # (Auto) 0.0 x10^3/uL (0.0-0.2) Sodium Level 144 mmol/L (136-145) Potassium Level 4.2 mmol/L (3.5-5.1) Chloride Level 107 mmol/L (98-107) Carbon Dioxide Level 34 mmol/L (21-32) Anion Gap 3 (6-14) Blood Urea Nitrogen 15 mg/dL (8-26) Creatinine 1.2 mg/dL (0.7-1.3) Estimated GFR (Cockcroft-Gault) 58.1 Glucose Level 97 mg/dL (70-99) Calcium Level 8.9 mg/dL (8.5-10.1) Urine Collection Type Unknown Urine Color Yellow Urine Clarity Clear Urine pH 5.5 (<5.0-8.0) Urine Specific [place] 1.020 (1.000-1.030) Urine Protein 30 mg/dL (NEG-TRACE) Urine Glucose (UA) Negative mg/dL (NEG) Urine Ketones (Stick) Negative mg/dL (NEG) Urine Blood Moderate (NEG) Urine Nitrite Negative (NEG) Urine Bilirubin Negative (NEG) Urine Urobilinogen Dipstick 0.2 mg/dL (0.2 mg/dL) Urine Leukocyte Esterase Small (NEG) Urine RBC 6-10 /HPF (0-2) Urine WBC 1-4 /HPF (0-4) Urine Squamous Epithelial Cells Few /LPF Urine Amorphous Sediment Present /HPF Urine Bacteria 0 /HPF (0-FEW) Urine Hyaline Casts Moderate /HPF Urine Granular Casts Few /HPF Urine Mucus Marked /LPF Laboratory Tests Test 07/04/20 18:30 Urine Collection Type Unknown Urine Color Yellow Urine Clarity Clear Urine pH 5.5 (<5.0-8.0) Urine Specific [place] 1.020 (1.000-1.030) Urine Protein 30 mg/dL (NEG-TRACE) Urine Glucose (UA) Negative mg/dL (NEG) Urine Ketones (Stick) Negative mg/dL (NEG) Urine Blood Moderate (NEG) Urine Nitrite Negative (NEG) Urine Bilirubin Negative (NEG) Urine Urobilinogen Dipstick 0.2 mg/dL (0.2 mg/dL) Urine Leukocyte Esterase Small (NEG) Urine RBC 6-10 /HPF (0-2) Urine WBC 1-4 /HPF (0-4) Urine Squamous Epithelial Cells Few /LPF Urine Amorphous Sediment Present /HPF Urine Bacteria 0 /HPF (0-FEW) Urine Hyaline Casts Moderate /HPF Urine Granular Casts Few /HPF Urine Mucus Marked /LPF Medications Current Medications Lorazepam (Ativan Inj) 2 mg 1X ONCE IVP Last administered on 06/29/20at 10:14; Start 06/29/20 at 10:00; Stop 06/29/20 at 10:01; Status DC Lorazepam (Ativan Inj) 2 mg STK-MED ONCE .ROUTE ; Start 06/29/20 at 09:45; Stop 06/29/20 at 09:45; Status DC Levetiracetam 500 mg/Dextrose 105 ml @ 420 mls/hr 1X ONCE IV Last administered on 06/29/20at 10:30; Start 06/29/20 at 10:30; Stop 06/29/20 at 10:44; Status DC Magnesium Sulfate/ Dextrose 100 ml @ 100 mls/hr 1X ONCE IV Last administered on 06/29/20at 11:02; Start 06/29/20 at 11:00; Stop 06/29/20 at 11:59; Status DC Levetiracetam 500 mg/Dextrose 105 ml @ 420 mls/hr 1X ONCE IV ; Start 06/29/20 at 11:00; Stop 06/29/20 at 11:14; Status DC Morphine Sulfate (Morphine Sulfate) 1 mg PRN Q1HR PRN IV MODERATE PAIN; Start 06/29/20 at 11:15; Stop 07/02/20 at 09:34; Status DC Morphine Sulfate (Morphine Sulfate) 2 mg PRN Q1HR PRN IV SEVERE PAIN; Start 06/29/20 at 11:15; Stop 07/01/20 at 07:15; Status DC Lorazepam (Ativan Inj) 2 mg PRN Q15MIN PRN IVP seizure activity; Start 06/29/20 at 11:30; Stop 07/02/20 at 09:34; Status DC Ondansetron HCl (Zofran) 4 mg PRN Q8HRS PRN IV NAUSEA/VOMITING; Start 06/29/20 at 11:45; Stop 06/30/20 at 11:44; Status DC Levetiracetam 500 mg/Dextrose 105 ml @ 420 mls/hr Q12HR IV Last administered on 06/30/20at 08:36; Start 06/29/20 at 21:00; Stop 06/30/20 at 12:44; Status DC Amlodipine Besylate (Norvasc) 10 mg DAILY PO Last administered on 07/05/20at 08:46; Start 06/29/20 at 14:30 Apixaban (Eliquis) 5 mg BID PO Last administered on 07/05/20at 08:46; Start 06/29/20 at 14:30 Atorvastatin Calcium (Lipitor) 20 mg QHS PO Last administered on 07/04/20at 20:38; Start 06/29/20 at 21:00 Metoprolol Tartrate (Lopressor) 25 mg BID PO Last administered on 07/05/20at 08:46; Start 06/29/20 at 14:30 Levetiracetam (Keppra) 750 mg BID PO Last administered on 07/05/20at 08:46; Start 06/30/20 at 21:00 Potassium Chloride/Dextrose/ Sod Cl 1,000 ml @ 80 mls/hr [id number] IV ; Start 07/01/20 at 07:30; Stop 07/01/20 at 07:45; Status DC Potassium Chloride (Klor-Con) 40 meq 1X ONCE PO Last administered on 07/01/20at 12:39; Start 07/01/20 at 08:00; Stop 07/01/20 at 08:01; Status DC Olanzapine (ZyPREXA ZYDIS) 5 mg PRN BID PRN PO ANXIETY / AGITATION Last administered on 07/01/20at 21:11; Start 07/01/20 at 12:00 Info (Anti-Coagulation Monitoring By Pharmacy) 1 each PRN DAILY PRN MC SEE COMMENTS Last administered on 07/04/20at 08:10; Start 07/01/20 at 12:15 Ondansetron HCl (Zofran Odt) 4 mg PRN Q6HRS PRN PO NAUSEA/VOMITING; Start 07/02/20 at 09:45 Acetaminophen (Tylenol) 650 mg PRN Q6HRS PRN PO MILD PAIN / TEMP > 100.3'F Last administered on 07/04/20at 11:20; Start 07/02/20 at 09:45 Cyclobenzaprine HCl (Flexeril) 5 mg TID PRN PRN PO MUSCLE SPASMS Last administered on 07/02/20at 20:40; Start 07/02/20 at 15:45 Sodium Chloride 1,000 ml @ 75 mls/hr 1X ONCE IV Last administered on 07/03/20 11:47; Start 07/03/20 at 09:15; Stop 07/03/20 at 22:34; Status DC Acetaminophen/ Hydrocodone Bitart (Lortab 5/325) 1 tab PRN Q4HRS PRN PO MODERATE TO SEVERE PAIN Last administered on 07/04/20at 20:38; Start 07/04/20 at 12:15 Active Scripts Active Levetiracetam 750 Mg Tablet 750 Mg PO BID 90 Days Metoprolol Tartrate 25 Mg Tablet 25 Mg PO BID 30 Days Reported Hydralazine Hcl 10 Mg Tablet 2 Tab PO TID Zoloft (Sertraline Hcl) 50 Mg Tablet 1 Tab PO DAILY Amlodipine Besylate 10 Mg Tablet 10 Mg PO DAILY Eliquis (Apixaban) 5 Mg Tablet 5 Mg PO BID Lisinopril 20 Mg Tablet 2 Tab PO DAILY Lipitor (Atorvastatin Calcium) 20 Mg Tablet 1 Tab PO DAILY Vitals/I & O Vital Sign - Last 24 Hours 07/04/20 07/04/20 07/04/20 07/04/20 12:11 14:24 15:19 19:00 Temp 98.1 98.1 Pulse 68 Resp 18 B/P (MAP) 115/63 (80) Pulse Ox 97 O2 Delivery Room Air Room Air Room Air Room Air 07/04/20 07/04/20 07/04/2007/04/20 19:00 20:38 20:39 21:30 Temp 98.6 98.6 Pulse 74 74 Resp 18 B/P (MAP) 115/54 (74) 115/54 Pulse Ox 94 O2 Delivery Room Air Room Air Room Air 07/04/20 07/05/20 07/05/20 07/05/20 23:03 03:00 07:00 08:46 Temp 98.3 98.5 98.6 98.3 98.5 98.6 Pulse 66 90 92 92 Resp 18 B/P (MAP) 161/77 (105) 167/86 (113) 134/80 (98) 134/80 Pulse Ox 94 95 84 O2 Delivery Room Air Room Air Room Air 07/05/20 08:46 Pulse 92 B/P (MAP) 134/80 Intake and Output 07/04/20 07/04/20 07/05/20 15:00 23:00 07:00 Intake Total 580 ml 280 ml 360 ml Output Total 450 ml 450 ml 425 ml Balance 130 ml -170 ml -65 ml Justicifation of Admission Dx: Justifications for Admission: Justification of Admission Dx: Yes (seizure, confusion) Altered Mental Status: Altered Mental Status HAILY SHEETS MD Jul 05, 2020 12:06
--- NOTE | 2020-07-05 13:45 | NUR ---
[facility] following. Spoke with RN and reviewed chart. Pt on . Pt COVID negative. Spoke with pt who remains agreeable to [facility]. [facility] faxed updates to [place] at . Discharge plan remains SN[facility] pending insurance authorization. Spoke with [place] who will submit for authorization today. [facility] following. Addendum: 07/06/20 at 1317 by SHIRA MARINELLI [facility] called back to say [facility] has decided they can't meet pt's needs.
[2020-07-05 15:00] VITALS: BP 118/64
--- NOTE | 2020-07-05 15:33 | NUR ---
Wound Care: Patient seen per wound care consult regarding left head and forehead abrasions due to a recent fall. there are no open wounds at this time, they have scabbed. No other wounds noted upon complete head to toe assessment. Patient repositioned bed lowered and call light in reach and bed alarm on. Wound care will sign off at this time. Please re consult regarding any changes per wound care.
[2020-07-05 19:00] VITALS: BP 126/63
[2020-07-05] MEDS: HYDROcodone/APAP 5/325MG 1 TAB TABLET PO PRN (20:21)
[2020-07-05] MEDS: ATORVASTATIN CALCIUM 20 MG TABLET PO SCH (20:21)
[2020-07-05 23:00] VITALS: BP 128/53
[2020-07-06 03:00] VITALS: BP 131/67
[2020-07-06 07:15] VITALS: BP 143/65
[2020-07-06] MEDS: levETIRAcetam 500 MG TABLET PO SCH ×2 (08:34→21:03)
[2020-07-06] MEDS: amLODIPine BESYLATE 10 MG TABLET PO SCH (08:35)
[2020-07-06] MEDS: METOPROLOL TART IMMED RELEASE 25 MG TABLET. PO SCH ×2 (08:35→23:02)
[2020-07-06] MEDS: APIXABAN 5 MG TABLET. PO SCH ×2 (08:35→21:03)
[2020-07-06] MEDS ORDERED: BISACODYL 10 MG SUPP.RECT. PR PRN (08:45)
--- NOTE | 2020-07-06 08:50 | PDOC ---
PROGRESS NOTES Date of Service DATE: 07/06/20 TIME: 08:48 Assessment Problems Medical Problems: (1) Hypertension Status: Acute Episodes of generalized shaking, fully alert, sometimes just in the right leg, he has had none in the past 48 hours he says. 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 Struck head morning of 07/01 in a controlled fall, head/c-spine CT negative Breakthrough seizure, postictal confusion, now resolved History of strokes History of right carotid artery occlusion and other intracranial arterial abnormalities No new stroke Plan Levetiracetam, dose increased Okay for discharge, needs longterm unit, awaiting insurance authorization Follow-up with me in 4-8 weeks Subjective No complaints Objective Vital Signs Date Time Temp Pulse Resp B/P (MAP) Pulse Ox O2 Delivery O2 Flow Rate FiO2 07/06/20 08:35 71 143/65 07/06/20 07:15 98.2 18 96 Room Air 98.2 07/05/20 21:20 3.0 Intake and Output 07/06/20 07:00 Intake Total 880 ml Output Total 600 ml Balance 280 ml Intake Oral 880 ml Output Urine Total 600 ml PHYSICAL EXAM Alert. Oriented to time, place and person. PERRL. EOMI. CN: no focal findings. Muscle tone: normal. Muscle strength: 4/5 DTR: 1+ Plantar reflex: flexor Gait: not tested Sensory exam: no abnormalities Review of Relevant I have reviewed the following items surinder (where applicable) has been applied. Labs Laboratory Tests Test 07/04/20 18:30 Urine Collection Type Unknown Urine Color Yellow Urine Clarity Clear Urine pH 5.5 (<5.0-8.0) Urine Specific [place] 1.020 (1.000-1.030) Urine Protein 30 mg/dL (NEG-TRACE) Urine Glucose (UA) Negative mg/dL (NEG) Urine Ketones (Stick) Negative mg/dL (NEG) Urine Blood Moderate (NEG) Urine Nitrite Negative (NEG) Urine Bilirubin Negative (NEG) Urine Urobilinogen Dipstick 0.2 mg/dL (0.2 mg/dL) Urine Leukocyte Esterase Small (NEG) Urine RBC 6-10 /HPF (0-2) Urine WBC 1-4 /HPF (0-4) Urine Squamous Epithelial Cells Few /LPF Urine Amorphous Sediment Present /HPF Urine Bacteria 0 /HPF (0-FEW) Urine Hyaline Casts Moderate /HPF Urine Granular Casts Few /HPF Urine Mucus Marked /LPF Medications Current Medications Lorazepam (Ativan Inj) 2 mg 1X ONCE IVP Last administered on 06/29/20at 10:14; Start 06/29/20 at 10:00; Stop 06/29/20 at 10:01; Status DC Lorazepam (Ativan Inj) 2 mg STK-MED ONCE .ROUTE ; Start 06/29/20 at 09:45; Stop 06/29/20 at 09:45; Status DC Levetiracetam 500 mg/Dextrose 105 ml @ 420 mls/hr 1X ONCE IV Last administe red on 06/29/20at 10:30; Start 06/29/20 at 10:30; Stop 06/29/20 at 10:44; Status DC Magnesium Sulfate/ Dextrose 100 ml @ 100 mls/hr 1X ONCE IV Last administered on 06/29/20at 11:02; Start 06/29/20 at 11:00; Stop 06/29/20 at 11:59; Status DC Levetiracetam 500 mg/Dextrose 105 ml @ 420 mls/hr 1X ONCE IV ; Start 06/29/20 at 11:00; Stop 06/29/20 at 11:14; Status DC Morphine Sulfate (Morphine Sulfate) 1 mg PRN Q1HR PRN IV MODERATE PAIN; Start 06/29/20 at 11:15; Stop 07/02/20 at 09:34; Status DC Morphine Sulfate (Morphine Sulfate) 2 mg PRN Q1HR PRN IV SEVERE PAIN; Start 06/29/20 at 11:15; Stop 07/01/20 at 07:15; Status DC Lorazepam (Ativan Inj) 2 mg PRN Q15MIN PRN IVP seizure activity; Start 06/29/20 at 11:30; Stop 07/02/20 at 09:34; Status DC Ondansetron HCl (Zofran) 4 mg PRN Q8HRS PRN IV NAUSEA/VOMITING; Start 06/29/20 at 11:45; Stop 06/30/20 at 11:44; Status DC Levetiracetam 500 mg/Dextrose 105 ml @ 420 mls/hr Q12HR IV Last administered on 06/30/20at 08:36; Start 06/29/20 at 21:00; Stop 06/30/20 at 12:44; Status DC Amlodipine Besylate (Norvasc) 10 mg DAILY PO Last administered on 07/06/20 08:35; Start 06/29/20 at 14:30 Apixaban (Eliquis) 5 mg BID PO Last administered on 07/06/20 08:35; Start 06/29/20 at 14:30 Atorvastatin Calcium (Lipitor) 20 mg QHS PO Last administered on 07/05/20 20:21; Start 06/29/20 at 21:00 Metoprolol Tartrate (Lopressor) 25 mg BID PO Last administered on 07/06/20 08:35; Start 06/29/20 at 14:30 Levetiracetam (Keppra) 750 mg BID PO Last administered on 07/06/20 08:34; Start 06/30/20 at 21:00 Potassium Chloride/Dextrose/ Sod Cl 1,000 ml @ 80 mls/hr [id number] IV ; Start 07/01/20 at 07:30; Stop 07/01/20 at 07:45; Status DC Potassium Chloride (Klor-Con) 40 meq 1X ONCE PO Last administered on 07/01/20 12:39; Start 07/01/20 at 08:00; Stop 07/01/20 at 08:01; Status DC Olanzapine (ZyPREXA ZYDIS) 5 mg PRN BID PRN PO ANXIETY / AGITATION Last administered on 07/01/20at 21:11; Start 07/01/20 at 12:00 Info (Anti-Coagulation Monitoring By Pharmacy) 1 each PRN DAILY PRN MC SEE COMMENTS Last administered on 07/04/20at 08:10; Start 07/01/20 at 12:15 Ondansetron HCl (Zofran Odt) 4 mg PRN Q6HRS PRN PO NAUSEA/VOMITING; Start 07/02/20 at 09:45 Acetaminophen (Tylenol) 650 mg PRN Q6HRS PRN PO MILD PAIN / TEMP > 100.3'F Last administered on 07/04/20at 11:20; Start 07/02/20 at 09:45 Cyclobenzaprine HCl (Flexeril) 5 mg TID PRN PRN PO MUSCLE SPASMS Last administered on 9/5/20at 20:40; Start 07/02/20 at 15:45 Sodium Chloride 1,000 ml @ 75 mls/hr 1X ONCE IV Last administered on 07/03/20at 11:47; Start 07/03/20 at 09:15; Stop 07/03/20 at 22:34; Status DC Acetaminophen/ Hydrocodone Bitart (Lortab 5/325) 1 tab PRN Q4HRS PRN PO MODERATE TO SEVERE PAIN Last administered on 07/05/20at 20:21; Start 07/04/20 at 12:15 Bisacodyl (Dulcolax Supp) 10 mg PRN DAILY PRN [place] CONSTIPATION; Start 07/06/20 at 08:45 Active Scripts Active Levetiracetam 750 Mg Tablet 750 Mg PO BID 90 Days Metoprolol Tartrate 25 Mg Tablet 25 Mg PO BID 30 Days Reported Hydralazine Hcl 10 Mg Tablet 2 Tab PO TID Zoloft (Sertraline Hcl) 50 Mg Tablet 1 Tab PO DAILY Amlodipine Besylate 10 Mg Tablet 10 Mg PO DAILY Eliquis (Apixaban) 5 Mg Tablet 5 Mg PO BID Lisinopril 20 Mg Tablet 2 Tab PO DAILY Lipitor (Atorvastatin Calcium) 20 Mg Tablet 1 Tab PO DAILY Vitals/I & O Vital Sign - Last 24 Hours 07/05/20 07/05/20 07/05/20 07/05/20 09:00 11:00 12:58 15:00 Temp 98.2 98.1 98.2 98.1 Pulse 79 63 Resp 18 18 20 18 B/P (MAP) 139/65 (89) 118/64 (82) Pulse Ox 90 82 91 96 O2 Delivery Nasal Cannula Room Air Nasal Cannula Nasal Cannula O2 Flow Rate 3.0 3.0 3.0 07/05/20 07/05/20 07/05/20 07/05/20 19:00 19:25 20:20 20:21 Temp 98.7 98.7 Pulse 71 71 Resp 18 18 B/P (MAP) 126/63 (84) 126/63 Pulse Ox 94 O2 Delivery Nasal Cannula Nasal Cannula O2 Flow Rate 3.0 07/05/20 07/05/20 07/06/20 07/06/20 21:20 23:00 03:00 07:15 Temp 97.9 97.6 98.2 97.9 97.6 98.2 Pulse 66 69 71 Resp 16 16 18 18 B/P (MAP) 128/53 (78) 131/67 (88) 143/65 (91) Pulse Ox 93 90 96 O2 Delivery Nasal Cannula Room Air O2 Flow Rate 3.0 07/06/20 07/06/20 08:35 08:35 Pulse 71 71 B/P (MAP) 143/65 143/65 Intake and Output 07/05/20 07/05/20 07/06/20 15:00 23:00 07:00 Intake Total 430 ml 150 ml 300 ml Output Total 100 ml 100 ml 400 ml Balance 330 ml 50 ml -100 ml Justicifation of Admission Dx: Justifications for Admission: Justification of Admission Dx: Yes (seizure, confusion) Altered Mental Status: Altered Mental Status HAILY SHEETS MD Jul 06, 2020 08:50
--- NOTE | 2020-07-06 10:11 | PDOC ---
PROGRESS NOTES Date of Service: DATE: 07/06/20 TIME: 10:10 Chief Complaint Chief Complaint IMPRESSION Seizure Vasomotor nephropathy Metabolic encephalopathy: improved H/o right occipital infarct with past CVA right occipital lobe with suggestion of increased diffusion weighted signal, may represent subacute infarct. 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 Loss of flow void within the right internal carotid artery and left POST cerebral artery compatible with occlusion is seen on prior CT angiogram. 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 Decreased caliber right distal MCA branches compared to the left. Occlusion of the left P1/P2 segment. Vascular dementia -with what appears to be sundowning likely due to multiple prior infarcts, I agree with neurology assessment on this. Carotid artery disease with chronically occluded GORDON AFIB - likely chronic, rate controlled. takes eliquis at home. EF nml. Accelerated HTN Hx of AAA with repair Nontraumatic fall: Centrilobular emphysema. hx heavy drug abuse, cocaine, heroin remote HX TOBACCO ABUSE X 60 YRS Struck head morning of 07/01 in a controlled fall, head/c-spine CT negative Breakthrough seizure, postictal confusion, now resolved 07/06 inc cough today, cxr pending , amie cordova D/W RN here in October with new seizure, found to have a subacute right occipital infarct and hypertensive encephalopathy. He has atrial fibrillation and is on Eliquis. 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 EEG on 11/10/19 showed no epileptiform discharges, slowing of background. 28 MIN PT EXAM, CHART REVIEW, > 50% OF TIME SPENT WITH EXAM, CHART REVIEW, PT CARE COORDINATION History of Present Illness History of Present Illness Mr Cooney is a 80-year-old male with past medical history of seizure, CVA, A. fib, who presents to the ER after a witnessed seizure and fall this morning with head injury. History was obtained from patient's due to postictal state. Per patient's he was in his normal state of health when she heard a fall around 9:00 this morning and witnessed seizure-like activity, so she contacted EMS. Patient's expresses some concern about medication compliance. She states that he is on blood thinners due to a history of A. fib 06/30: More alert with no acute problems. No further seizures or falls. PT recommends SNF however his family wishes for home with home health. Upon arrival to take him home, noted he was not at baseline and SBP > 180. 07/01: Kept overnight for further observation due to concerns about mental status. He did fall off the commode overnight and struck his head. 07/02: Overnight no events, slept better with zyprexa. Less hyperactive. Has some myoclonic movements in all 4 extremities during my examination, but is able to carry on a conversation with me the entire time. Intentional movement breaks him out of clonus. Afebrile overnight. Did have some shaking observed by neurology as well. Labs stable except CR now 1.5 from 1.2. He is admittedly not drinking much in the way of fluids. Plan: Still recommending skilled services on discharge. Seems to be sundowning due to multi-infarct dementia needs DPOA Vitals Vitals Vital Signs Date Time Temp Pulse Resp B/P (MAP) Pulse Ox O2 Delivery O2 Flow Rate FiO2 07/06/20 08:35 71 143/65 07/06/20 07:15 98.2 18 96 Room Air 98.2 07/05/20 21:20 3.0 Physical Exam General: Alert, Oriented X3, Cooperative, No acute distress Heart: Regular rate, Normal S1, Normal S2, Gallops Lungs: Clear Abdomen: Normal bowel sounds, Soft, No tenderness Extremities: No clubbing, No cyanosis, No edema Skin: No rashes, No significant lesion Assessment and Plan Assessmemt and Plan Problems Medical Problems: (1) Hypertension Status: Acute Comment Review of Relevant I have reviewed the following items surinder (where applicable) has been applied. Labs Laboratory Tests Test 07/04/20 18:30 Urine Collection Type Unknown Urine Color Yellow Urine Clarity Clear Urine pH 5.5 (<5.0-8.0) Urine Specific [place] 1.020 (1.000-1.030) Urine Protein 30 mg/dL (NEG-TRACE) Urine Glucose (UA) Negative mg/dL (NEG) Urine Ketones (Stick) Negative mg/dL (NEG) Urine Blood Moderate (NEG) Urine Nitrite Negative (NEG) Urine Bilirubin Negative (NEG) Urine Urobilinogen Dipstick 0.2 mg/dL (0.2 mg/dL) Urine Leukocyte Esterase Small (NEG) Urine RBC 6-10 /HPF (0-2) Urine WBC 1-4 /HPF (0-4) Urine Squamous Epithelial Cells Few /LPF Urine Amorphous Sediment Present /HPF Urine Bacteria 0 /HPF (0-FEW) Urine Hyaline Casts Moderate /HPF Urine Granular Casts Few /HPF Urine Mucus Marked /LPF Microbiology 07/04/20 Urine Culture - Final, Complete Medications Current Medications Lorazepam (Ativan Inj) 2 mg 1X ONCE IVP Last administered on 06/29/20at 10:14; Start 06/29/20 at 10:00; Stop 06/29/20 at 10:01; Status DC Lorazepam (Ativan Inj) 2 mg STK-MED ONCE .ROUTE ; Start 06/29/20 at 09:45; Stop 06/29/20 at 09:45; Status DC Levetiracetam 500 mg/Dextrose 105 ml @ 420 mls/hr 1X ONCE IV Last administered on 06/29/20at 10:30; Start 06/29/20 at 10:30; Stop 06/29/20 at 10:44; Status DC Magnesium Sulfate/ Dextrose 100 ml @ 100 mls/hr 1X ONCE IV Last administered on 06/29/20at 11:02; Start 06/29/20 at 11:00; Stop 06/29/20 at 11:59; Status DC Levetiracetam 500 mg/Dextrose 105 ml @ 420 mls/hr 1X ONCE IV ; Start 06/29/20 at 11:00; Stop 06/29/20 at 11:14; Status DC Morphine Sulfate (Morphine Sulfate) 1 mg PRN Q1HR PRN IV MODERATE PAIN; Start 06/29/20 at 11:15; Stop 07/02/20 at 09:34; Status DC Morphine Sulfate (Morphine Sulfate) 2 mg PRN Q1HR PRN IV SEVERE PAIN; Start 06/29/20 at 11:15; Stop 07/01/20 at 07:15; Status DC Lorazepam (Ativan Inj) 2 mg PRN Q15MIN PRN IVP seizure activity; Start 06/29/20 at 11:30; Stop 07/02/20 at 09:34; Status DC Ondansetron HCl (Zofran) 4 mg PRN Q8HRS PRN IV NAUSEA/VOMITING; Start 06/29/20 at 11:45; Stop 06/30/20 at 11:44; Status DC Levetiracetam 500 mg/Dextrose 105 ml @ 420 mls/hr Q12HR IV Last administered on 06/30/20 08:36; Start 06/29/20 at 21:00; Stop 06/30/20 at 12:44; Status DC Amlodipine Besylate (Norvasc) 10 mg DAILY PO Last administered on 07/06/20 08:35; Start 06/29/20 at 14:30 Apixaban (Eliquis) 5 mg BID PO Last administered on 07/06/20 08:35; Start 06/29/20 at 14:30 Atorvastatin Calcium (Lipitor) 20 mg QHS PO Last administered on 07/05/20at 20:21; Start 06/29/20 at 21:00 Metoprolol Tartrate (Lopressor) 25 mg BID PO Last administered on 07/06/20 08:35; Start 06/29/20 at 14:30 Levetiracetam (Keppra) 750 mg BID PO Last administered on 07/06/20 08:34; Start 06/30/20 at 21:00 Potassium Chloride/Dextrose/ Sod Cl 1,000 ml @ 80 mls/hr [id number] IV ; Start 07/01/20 at 07:30; Stop 07/01/20 at 07:45; Status DC Potassium Chloride (Klor-Con) 40 meq 1X ONCE PO Last administered on 07/01/20at 12:39; Start 07/01/20 at 08:00; Stop 07/01/20 at 08:01; Status DC Olanzapine (ZyPREXA ZYDIS) 5 mg PRN BID PRN PO ANXIETY / AGITATION Last administered on 07/01/20at 21:11; Start 07/01/20 at 12:00 Info (Anti-Coagulation Monitoring By Pharmacy) 1 each PRN DAILY PRN MC SEE COMMENTS Last administered on 07/04/20at 08:10; Start 07/01/20 at 12:15 Ondansetron HCl (Zofran Odt) 4 mg PRN Q6HRS PRN PO NAUSEA/VOMITING; Start 07/02/20 at 09:45 Acetaminophen (Tylenol) 650 mg PRN Q6HRS PRN PO MILD PAIN / TEMP > 100.3'F Last administered on 07/04/20at 11:20; Start 07/02/20 at 09:45 Cyclobenzaprine HCl (Flexeril) 5 mg TID PRN PRN PO MUSCLE SPASMS Last administered on 07/02/20at 20:40; Start 07/02/20 at 15:45 Sodium Chloride 1,000 ml @ 75 mls/hr 1X ONCE IV Last administered on 07/03/20at 11:47; Start 07/03/20 at 09:15; Stop 07/03/20 at 22:34; Status DC Acetaminophen/ Hydrocodone Bitart (Lortab 5/325) 1 tab PRN Q4HRS PRN PO MODERATE TO SEVERE PAIN Last administered on 07/05/20at 20:21; Start 07/04/20 at 12:15 Bisacodyl (Dulcolax Supp) 10 mg PRN DAILY PRN [place] CONSTIPATION; Start 07/06/20 at 08:45 Albuterol/ Ipratropium (Duoneb) 3 ml RTQID NEB ; Start 07/06/20 at 12:00 Active Scripts Active Levetiracetam 750 Mg Tablet 750 Mg PO BID 90 Days Metoprolol Tartrate 25 Mg Tablet 25 Mg PO BID 30 Days Reported Hydralazine Hcl 10 Mg Tablet 2 Tab PO TID Zoloft (Sertraline Hcl) 50 Mg Tablet 1 Tab PO DAILY Amlodipine Besylate 10 Mg Tablet 10 Mg PO DAILY Eliquis (Apixaban) 5 Mg Tablet 5 Mg PO BID Lisinopril 20 Mg Tablet 2 Tab PO DAILY Lipitor (Atorvastatin Calcium) 20 Mg Tablet 1 Tab PO DAILY Vitals/I & O Vital Sign - Last 24 Hours 07/05/20 07/05/20 07/05/20 07/05/20 11:00 12:58 15:00 19:00 Temp 98.2 98.1 98.7 98.2 98.1 98.7 Pulse 79 63 71 Resp 18 20 18 18 B/P (MAP) 139/65 (89) 118/64 (82) 126/63 (84) Pulse Ox 82 91 96 94 O2 Delivery Room Air Nasal Cannula Nasal Cannula O2 Flow Rate 3.0 3.0 07/05/20 07/05/20 07/05/20 07/05/20 19:25 20:20 20:21 21:20 Pulse 71 Resp 18 16 B/P (MAP) 126/63 O2 Delivery Nasal Cannula Nasal Cannula Nasal Cannula O2 Flow Rate 3.0 3.0 07/05/20 07/06/20 07/06/20 07/06/20 23:00 03:00 07:15 08:35 Temp 97.9 97.6 98.2 97.9 97.6 98.2 Pulse 66 69 71 71 Resp 16 18 18 B/P (MAP) 128/53 (78) 131/67 (88) 143/65 (91) 143/65 Pulse Ox 93 90 96 O2 Delivery Room Air 07/06/20 08:35 Pulse 71 B/P (MAP) 143/65 Intake and Output 07/05/20 07/05/20 07/06/20 15:00 23:00 07:00 Intake Total 430 ml 150 ml 300 ml Output Total 100 ml 100 ml 400 ml Balance 330 ml 50 ml -100 ml Justicifation of Admission Dx: Justifications for Admission: Justification of Admission Dx: Yes (seizure, confusion) Altered Mental Status: Altered Mental Status KHANG HOWELL MD Jul 06, 2020 10:10
[2020-07-06 11:08] VITALS: BP 127/69
[2020-07-06] MEDS: IPRATRPIUM/ALBUTEROL 0.5/2.5MG 3 ML NEBU. NEB SCH ×3 (12:19→20:35)
--- NOTE | 2020-07-06 13:23 | NUR ---
YVES following. Spoke with RN and reviewed chart. YVES phoned and faxed referral for SNU to [facility] per approval pt (new patient choice of vendor form completed). Spoke with Myrna and pt has been accepted clinically and they do not need another COVID test. Myrna to submit for insurance authorization. Spoke with pt's [id number] Allie to update on pt approval to refer to [facility] per [facility] declining late yesterday. Allie stated that her son also plans to move in and help pt and pt's long-term. Discharge plan remains SNU to home. YVES following. Addendum: 07/06/20 at 1523 by SHIRA MARINELLI Authorization has been submitted and remains pending per Myrna at [facility].
--- NOTE | 2020-07-06 14:56 | RAD ---
Portable chest x-ray compared to similar examination dated November 09, 2019 for increased cough and hypoxia. FINDINGS: There is subtly increased pulmonary vascularity compared to the prior exam and there are early Ker;steven B lines at the right lung base suggesting early interstitial pulmonary edema. No pleural effusions. Borderline cardiomegaly, stable. Atherosclerosis of the aorta. No significant osseous abnormalities. IMPRESSION: 1. Subtly increased central vasculature with notable William B lines in the right lung base suggesting very early interstitial pulmonary edema. Electronically signed by: Alex Good MD (07/06/2020 2:53 PM) [id number]
[2020-07-06 15:18] VITALS: BP 112/61
[2020-07-06 19:00] VITALS: BP 97/61
[2020-07-06] MEDS: ATORVASTATIN CALCIUM 20 MG TABLET PO SCH (21:03)
[2020-07-06 23:00] VITALS: BP 122/69
[2020-07-07 03:00] VITALS: BP 149/74
[2020-07-07] MEDS: HYDROcodone/APAP 5/325MG 1 TAB TABLET PO PRN (05:36)
[2020-07-07 07:00] VITALS: BP 143/56
[2020-07-07] MEDS: IPRATRPIUM/ALBUTEROL 0.5/2.5MG 3 ML NEBU. NEB SCH ×3 (07:02→16:00)
--- NOTE | 2020-07-07 07:21 | PDOC ---
PROGRESS NOTES Date of Service: DATE: 07/07/20 TIME: 07:21 Chief Complaint Chief Complaint discharge dx Seizure Vasomotor nephropathy Metabolic encephalopathy: improved H/o right occipital infarct with past CVA right occipital lobe with suggestion of increased diffusion weighted signal, may represent subacute infarct. 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 Loss of flow void within the right internal carotid artery and left POST cerebral artery compatible with occlusion is seen on prior CT angiogram. 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 Decreased caliber right distal MCA branches compared to the left. Occlusion of the left P1/P2 segment. Vascular dementia -with what appears to be sundowning likely due to multiple prior infarcts, I agree with neurology assessment on this. Carotid artery disease with chronically occluded GORDON AFIB - likely chronic, rate controlled. takes eliquis at home. EF nml. Accelerated HTN Hx of AAA with repair Nontraumatic fall: Centrilobular emphysema. hx heavy drug abuse, cocaine, heroin remote HX TOBACCO ABUSE X 60 YRS Struck head morning of 07/01 in a controlled fall, head/c-spine CT negative Breakthrough seizure, postictal confusion, now resolved 07/07 cough today, duonebs qid Subtly increased central vasculature with notable William B lines in the right lung base suggesting very early interstitial pulmonary edema. D/W RN D/C HOME AFTER 40 MG IV LASIX 07/07 here in October with new seizure, found to have a subacute right occipital infarct and hypertensive encephalopathy. He has atrial fibrillation and is on Eliquis. There are also some old left basal ganglia and right inferior cer ebellar infarcts. 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 EEG on 11/10/19 showed no epileptiform discharges, slowing of background. 32 MIN PT EXAM, CHART REVIEW D/C PLANNING , > 50% OF TIME SPENT WITH EXAM, CHART REVIEW, PT CARE COORDINATION History of Present Illness History of Present Illness Mr Cooney is a 80-year-old male with past medical history of seizure, CVA, Maren mayer, who presents to the ER after a witnessed seizure and fall this morning with head injury. History was obtained from patient's due to postictal state. Per patient's he was in his normal state of health when she heard a fall around 9:00 this morning and witnessed seizure-like activity, so she contacted EMS. Patient's expresses some concern about medication compliance. She states that he is on blood thinners due to a history of A. fib 06/30: More alert with no acute problems. No further seizures or falls. PT recommends SNF however his family wishes for home with home health. Upon arrival to take him home, noted he was not at baseline and SBP > 180. 07/01: Kept overnight for further observation due to concerns about mental status. He did fall off the commode overnight and struck his head. 07/02: Overnight no events, slept better with zyprexa. Less hyperactive. Has some myoclonic movements in all 4 extremities during my examination, but is able to carry on a conversation with me the entire time. Intentional movement breaks him out of clonus. Afebrile overnight. Did have some shaking observed by neurology as well. Labs stable except CR now 1.5 from 1.2. He is admittedly not drinking much in the way of fluids. Plan: Still recommending skilled services on discharge. Seems to be sundowning due to multi-infarct dementia needs DPOA Vitals Vitals Vital Signs Date Time Temp Pulse Resp B/P (MAP) Pulse Ox O2 Delivery O2 Flow Rate FiO2 07/07/20 07:02 92 Nasal Cannula 3.0 07/07/20 03:00 97.6 76 22 149/74 (99) 97.6 Physical Exam General: Alert, Oriented X3, Cooperative, No acute distress Heart: Regular rate, Normal S1, Normal S2, Gallops Lungs: Clear, Wheezing, Other (NO DISTRESS) Abdomen: Normal bowel sounds, Soft, No tenderness Extremities: No clubbing, No cyanosis, No edema Skin: No rashes, No significant lesion Labs LABS Portable chest x-ray compared to similar examination dated November 09, 2019 for increased cough and hypoxia. FINDINGS: There is subtly increased pulmonary vascularity compared to the prior exam and there are early Ker;steven B lines at the right lung base suggesting early interstitial pulmonary edema. No pleural effusions. Borderline cardiomegaly, stable. Atherosclerosis of the aorta. No significant osseous abnormalities. IMPRESSION: 1. Subtly increased central vasculature with notable William B lines in the right lung base suggesting very early interstitial pulmonary edema. Electronically signed by: Alex Friedman MD (07/06/2020 2:53 PM) [id number] DICTATED and SIGNED BY: ALEX FRIEDMAN MD DATE: 07/06/20 1453 Assessment and Plan Assessmemt and Plan Problems Medical Problems: (1) Hypertension Status: Acute DPOA DISCUSSION 17 MIN NEEDS TO UPDATE WITH HOTEL SALES MANAGER 07/07 What Is a Power of Field Nurse? A power of sales representative facility services (POA) is a legal document giving one person (the agent or [id number]) the power to act for another person (the principal). The agent can have broad legal authority or limited authority to make legal decisions about the principal's property, finances or medical care. The power of sales representative facility services is frequently used in the event of a principal's illness or disability, or when the principal can't be present to sign necessary legal documents for financial transactions. A power of sales representative facility services can end for a number of reasons, such as when the principal dies, the principal revokes it, a court invalidates it, the principal divorces their spouse, who happens to be the agent, or the agent can no longer carry out the outlined responsibilities. Conventional POAs lapse when the creator becomes incapacitated, but a durable POA remains in force to enable the agent to manage the creators affairs, and a springing POA comes into effect only if and when the creator of the POA becomes incapacitated. A medical or healthcare POA enables an agent to make medical decisions on behalf of an incapacitated person. A power of sales representative facility services (POA) is a legal document giving one person, the agent or [id number] the power to act for another person, the principal. The agent can have broad legal authority or limited authority to make decisions about the principal's property, finances or medical care. The power of sales representative facility services is often used when a principal becomes ill or disabled, or when they can't be present to sign necessary legal documents for financial transactions. Understanding Power of Field Nurse A power of sales representative facility services should be considered when planning for long-term care. There are different types of POAs that fall under either a general power of sales representative facility services or limited power of sales representative facility services. A general power of sales representative facility services acts on behalf of the principal in any and all matters, as allowed by the state. The agent under a general POA agreement may be authorized to take care of issues such as handling bank accounts, signing checks, selling property and assets like stocks, f A limited power of sales representative facility services gives the agent the power to act on behalf of the principal in specific matters or events. For example, the limited POA may expli citly state that the agent is only allowed to manage the principal's penitentiary accounts. A limited POA may also be limited to a specific period of time (e.g., if the principal will be out of the country for, say, two years). Most [place]anova of sales representative facility services documents allow an agent to represent the principal in all property and financial matters as long as the principals mental state of mind is good. If a situation occurs where the principal becomes incapable of making decisions for him or herself, the POA agreement would automatically end. However, someone who wants the POA to remain in effect after the persons health deteriorates would need to sign a durable power of sales representative facility services (DPOA). Important:A person appointed as power of sales representative facility services is not necessarily an sales representative facility services. The person could just be a trusted family member, friend, or acquaintance. Understanding the Durable Power of Field Nurse (DPOA) The durable power of sales representative facility services (DPOA) remains in control of certain legal, property or financial matters specifically spelled out in the agreement, even after the principal becomes mentally incapacitated. While a DPOA can pay medical bills on behalf of the principal, the durable agent cannot make decisions related to the principal's health (e.g., taking the principal off life support is not up to a DPOA). The principal can sign a durable power of sales representative facility services for health care, or healthcare power of sales representative facility services (HCPA), if he wants an agent to have the power to make health-related decisions. This document also called a healthcare proxy, outlines the principals consent to give the agent POA privileges in the event of an unfortunate medical condition. The durable POA for healthcare is legally bound to oversee medical care decisions on behalf of the principal. Another type of DPOA is the durable power of sales representative facility services for finances, or simply a financial power of sales representative facility services. This document allows an agent to manage the business and financial affairs of the principal, such as signing checks, filing tax returns, mailing and depositing Social Security checks and managing investment accounts, in the event, the latter becomes unable to understand or make decisions. To the extent of what the agreement spells out as the agents responsibility, the agent has to carry out the principals wishes to the best of his ability. When the agent acts on behalf of the principal by making investment decisions through the brokerage branch manager or medical decisions through the healthcare professional, both institutions would ask to see the DPOA. Although the DPOA for both medical and financial matters can be one document, it is good to have separate DPOA for healthcare and finances. Since the DPOA for healthcare will have the principal's personal medical information, it would be inappropriate for the brokerage branch manager to have it, and the medical office technology instructor dont need to know the financial status of the patient either. conditions for which a durable POA may become active are set up in a document called the springing power of sales representative facility services. The springing POA defines the kind of event or level of incapacitation that should occur before the DPOA springs into effect. A power of sales representative facility services can remain dormant until a negative health occurrence activates it to a DPOA. How Power of Field Nurse Works You can buy or download a power of sales representative facility services template. If you do, be sure it is for your state, as requirements differ. However, this document may be too important to leave to the chance that you got the correct form and handled it properly. A better way to start the process of establishing a power of sales representative facility services is by locating an sales representative facility services who specializes in family law in your state. If sales representative facility services's fees are more than you can afford, legal services offices staffed with credentialed attorneys exist in virtually every part of the [place]. Visit the [employer]'s website, which has a "Find Program Specialist" search function. Clients who qualify will receive pro tracey (cost-free) assistance Many states require that the signature of the principal (the person who initiates the POA) be notarized. Some states also require that witnesses' signatures be notarized. The following provisos apply generally, nationwide, and everyone who needs to create a POA should be aware of them: There is no standard POA form for all states; state law and procedures vary All states accept some version of the durable power of sales representative facility services A few hou casanova cannot be delegated. These include the authority to do the following: Make, amend, or revoke a will Contract a marriage in most states, although a handful of states allow it Vote (but the guardian may request a ballot on behalf of the principal) Comment Review of Relevant I have reviewed the following items surinder (where applicable) has been applied. Labs Microbiology 07/04/20 Urine Culture - Final, Complete Medications Current Medications Lorazepam (Ativan Inj) 2 mg 1X ONCE IVP Last administered on 06/29/20at 10:14; Start 06/29/20 at 10:00; Stop 06/29/20 at 10:01; Status DC Lorazepam (Ativan Inj) 2 mg STK-MED ONCE .ROUTE ; Start 06/29/20 at 09:45; Stop 06/29/20 at 09:45; Status DC Levetiracetam 500 mg/Dextrose 105 ml @ 420 mls/hr 1X ONCE IV Last administered on 06/29/20at 10:30; Start 06/29/20 at 10:30; Stop 06/29/20 at 10:44; Status DC Magnesium Sulfate/ Dextrose 100 ml @ 100 mls/hr 1X ONCE IV Last administered on 06/29/20at 11:02; Start 06/29/20 at 11:00; Stop 06/29/20 at 11:59; Status DC Levetiracetam 500 mg/Dextrose 105 ml @ 420 mls/hr 1X ONCE IV ; Start 06/29/20 at 11:00; Stop 06/29/20 at 11:14; Status DC Morphine Sulfate (Morphine Sulfate) 1 mg PRN Q1HR PRN IV MODERATE PAIN; Start 06/29/20 at 11:15; Stop 07/02/20 at 09:34; Status DC Morphine Sulfate (Morphine Sulfate) 2 mg PRN Q1HR PRN IV SEVERE PAIN; Start 06/29/20 at 11:15; Stop 07/01/20 at 07:15; Status DC Lorazepam (Ativan Inj) 2 mg PRN Q15MIN PRN IVP seizure activity; Start 06/29/20 at 11:30; Stop 07/02/20 at 09:34; Status DC Ondansetron HCl (Zofran) 4 mg PRN Q8HRS PRN IV NAUSEA/VOMITING; Start 06/29/20 a t 11:45; Stop 06/30/20 at 11:44; Status DC Levetiracetam 500 mg/Dextrose 105 ml @ 420 mls/hr Q12HR IV Last administered on 06/30/20at 08:36; Start 06/29/20 at 21:00; Stop 06/30/20 at 12:44; Status DC Amlodipine Besylate (Norvasc) 10 mg DAILY PO Last administered on 07/06/20at 08:35; Start 06/29/20 at 14:30 Apixaban (Eliquis) 5 mg BID PO Last administered on 07/06/20at 21:03; Start 06/29 at 14:30 Atorvastatin Calcium (Lipitor) 20 mg QHS PO Last administered on 07/06/20at 21:03; Start 06/29/20 at 21:00 Metoprolol Tartrate (Lopressor) 25 mg BID PO Last administered on 07/06/20at 23:02; Start 06/29/20 at 14:30 Levetiracetam (Keppra) 750 mg BID PO Last administered on 07/06/20at 21:03; Start 06/30/20 at 21:00 Potassium Chloride/Dextrose/ Sod Cl 1,000 ml @ 80 mls/hr [id number] IV ; Start 07/01/20 at 07:30; Stop 07/01/20 at 07:45; Status DC Potassium Chloride (Klor-Con) 40 meq 1X ONCE PO Last administered on 07/01/20at 12:39; Start 07/01/20 at 08:00; Stop 07/01/20 at 08:01; Status DC Olanzapine (ZyPREXA ZYDIS) 5 mg PRN BID PRN PO ANXIETY / AGITATION Last administered on 07/01/20at 21:11; Start 07/01/20 at 12:00 Info (Anti-Coagulation Monitoring By Pharmacy) 1 each PRN DAILY PRN MC SEE COMMENTS Last administered on 07/04/20at 08:10; Start 07/01/20 at 12:15 Ondansetron HCl (Zofran Odt) 4 mg PRN Q6HRS PRN PO NAUSEA/VOMITING; Start 07/02/20 at 09:45 Acetaminophen (Tylenol) 650 mg PRN Q6HRS PRN PO MILD PAIN / TEMP > 100.3'F Last administered on 07/04/20at 11:20; Start 07/02/20 at 09:45 Cyclobenzaprine HCl (Flexeril) 5 mg TID PRN PRN PO MUSCLE SPASMS Last administered on 07/02/20at 20:40; Start 07/02/20 at 15:45 Sodium Chloride 1,000 ml @ 75 mls/hr 1X ONCE IV Last administered on 07/03/20at 11:47; Start 07/03/20 at 09:15; Stop 07/03/20 at 22:34; Status DC Acetaminophen/ Hydrocodone Bitart (Lortab 5/325) 1 tab PRN Q4HRS PRN PO MODERATE TO SEVERE PAIN Last administered on 07/07/20at 05:36; Start 07/04/20 at 12:15 Bisacodyl (Dulcolax Supp) 10 mg PRN DAILY PRN MI CONSTIPATION Last administered on 07/06/20at 14:36; Start 07/06/20 at 08:45 Albuterol/ Ipratropium (Duoneb) 3 ml RTQID NEB Last administered on 07/07/20at 07:02; Start 07/06/20 at 12:00 Active Scripts Active Levetiracetam 750 Mg Tablet 750 Mg PO BID 90 Days Metoprolol Tartrate 25 Mg Tablet 25 Mg PO BID 30 Days Reported Hydralazine Hcl 10 Mg Tablet 2 Tab PO TID Zoloft (Sertraline Hcl) 50 Mg Tablet 1 Tab PO DAILY Amlodipine Besylate 10 Mg Tablet 10 Mg PO DAILY Eliquis (Apixaban) 5 Mg Tablet 5 Mg PO BID Lisinopril 20 Mg Tablet 2 Tab PO DAILY Lipitor (Atorvastatin Calcium) 20 Mg Tablet 1 Tab PO DAILY Vitals/I & O Vital Sign - Last 24 Hours 07/06/20 07/06/20 07/06/20 07/06/20 08:05 08:35 08:35 11:08 Temp 98.0 98.0 Pulse 71 71 66 Resp 16 B/P (MAP) 143/65 143/65 127/69 (88) Pulse Ox 95 O2 Delivery Nasal Cannula Room Air O2 Flow Rate 3.0 07/06/20 07/06/20 07/06/20 07/06/20 12:19 15:18 15:59 19:00 Temp 98.1 98.7 98.1 98.7 Pulse 93 90 Resp 18 24 B/P (MAP) 112/61 (78) 97/61 (73) Pulse Ox 98 95 96 94 O2 Delivery Nasal Cannula Room Air Nasal Cannula Nasal Cannula O2 Flow Rate 3.0 3.0 2.0 07/06/20 07/06/20 07/06/20 07/06/20 19:30 20:35 23:00 23:02 Temp 98.0 98.0 Pulse 82 81 Resp 22 B/P (MAP) 122/69 (86) 122/69 Pulse Ox 96 96 O2 Delivery Nasal Cannula Nasal Cannula Nasal Cannula O2 Flow Rate 3.0 3.0 3.0 07/07/20 07/07/20 07/07/20 03:00 05:36 07:02 Temp 97.6 97.6 Pulse 76 Resp 22 B/P (MAP) 149/74 (99) Pulse Ox 95 95 92 O2 Delivery Nasal Cannula Nasal Cannula Nasal Cannula O2 Flow Rate 3.0 3.0 3.0 Intake and Output 07/06/20 07/06/20 07/07/20 15:00 23:00 07:00 Intake Total 560 ml 480 ml 300 ml Output Total 200 ml 100 ml 375 ml Balance 360 ml 380 ml -75 ml Justicifation of Admission Dx: Justifications for Admission: Justification of Admission Dx: Yes (seizure, confusion) Altered Mental Status: Altered Mental Status KHANG HOWELL MD Jul 07, 2020 07:21
[2020-07-07] MEDS: levETIRAcetam 500 MG TABLET PO SCH (08:34)
[2020-07-07] MEDS: APIXABAN 5 MG TABLET. PO SCH (08:34)
[2020-07-07] MEDS: METOPROLOL TART IMMED RELEASE 25 MG TABLET. PO SCH (08:34)
[2020-07-07] MEDS: amLODIPine BESYLATE 10 MG TABLET PO SCH (08:34)
[2020-07-07 11:00] VITALS: BP 135/63
--- NOTE | 2020-07-07 11:28 | PDOC3 ---
Discharge Summary Date of Admission: Jun 29, 2020 Date of Discharge: Jul 07, 2020 Follow-Up: 1-2 days Admitting Diagnosis comment: discharge dx Seizure, acute Vasomotor nephropathy Metabolic encephalopathy: improved H/o right occipital infarct with past CVA right occipital lobe with suggestion of increased diffusion weighted signal, may represent subacute infarct. 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 Loss of flow void within the right internal carotid artery and left POST cerebral artery compatible with occlusion is seen on prior CT angiogram. 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 Decreased caliber right distal MCA branches compared to the left. Occlusion of the left P1/P2 segment. Vascular dementia -with what appears to be sundowning likely due to multiple prior infarcts, I agree with neurology assessment on this. Carotid artery disease with chronically occluded GORDON AFIB - likely chronic, rate controlled. takes eliquis at home. EF nml. Accelerated HTN Hx of AAA with repair Nontraumatic fall: Centrilobular emphysema. hx heavy drug abuse, cocaine, heroin remote HX TOBACCO ABUSE X 60 YRS Struck head morning of 07/01 in a controlled fall, head/c-spine CT negative Breakthrough seizure, postictal confusion, now resolved 07/07 cough today, duonebs qid Subtly increased central vasculature with notable William B lines in the right lung base suggesting very early interstitial pulmonary edema. D/W RN D/C HOME AFTER 40 MG IV LASIX 07/07 here in October with new seizure, found to have a subacute right occipital infarct and hypertensive encephalopathy. He has atrial fibrillation and is on Eliquis. 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 EEG on 11/10/19 showed no epileptiform discharges, slowing of background. 32 MIN PT EXAM, CHART REVIEW D/C PLANNING , > 50% OF TIME SPENT WITH EXAM, CHART REVIEW, PT CARE COORDINATION d/c with home health History of Present Illness History of Present Illness Mr Cooney is a 80-year-old male with past medical history of seizure, CVA, A. fib, who presents to the ER after a witnessed seizure and fall this morning with head injury. History was obtained from patient's due to postictal state. Per patient's he was in his normal state of health when she heard a fall around 9:00 this morning and witnessed seizure-like activity, so she contacted EMS. Patient's expresses some concern about medication compliance. She states that he is on blood thinners due to a history of A. fib 06/30: More alert with no acute problems. No further seizures or falls. PT recommends SNF however his family wishes for home with home health. Upon arrival to take him home, noted he was not at baseline and SBP > 180. 07/01: Kept overnight for further observation due to concerns about mental status. He did fall off the commode overnight and struck his head. 07/02: Overnight no events, slept better with zyprexa. Less hyperactive. Has some myoclonic movements in all 4 extremities during my examination, but is able to carry on a conversation with me the entire time. Intentional movement breaks him out of clonus. Afebrile overnight. Did have some shaking observed by neurology as well. Labs stable except CR now 1.5 from 1.2. He is admittedly not drinking much in the way of fluids. Plan: Still recommending skilled services on discharge. Seems to be sundowning due to multi-infarct dementia needs DPOA Vitals Vitals Vital Signs Date Time Temp Pulse Resp B/P (MAP) Pulse Ox O2 Delivery O2 Flow Rate FiO2 07/07/20 07:02 92 Nasal Cannula 3.0 07/07/20 03:00 97.6 76 22 149/74 (99) 97.6 Physical Exam General: Alert, Oriented X3, Cooperative, No acute distress Heart: Regular rate, Normal S1, Normal S2, Gallops Lungs: Clear, Wheezing, Other (NO DISTRESS) Abdomen: Normal bowel sounds, Soft, No tenderness Extremities: No clubbing, No cyanosis, No edema Skin: No rashes, No significant lesion Labs LABS Portable chest x-ray compared to similar examination dated November 09, 2019 for increased cough and hypoxia. FINDINGS: There is subtly increased pulmonary vascularity compared to the prior exam and there are early Ker;steven B lines at the right lung base suggesting early interstitial pulmonary edema. No pleural effusions. Borderline cardiomegaly, stable. Atherosclerosis of the aorta. No significant osseous abnormalities. IMPRESSION: 1. Subtly increased central vasculature with notable William B lines in the right lung base suggesting very early interstitial pulmonary edema. Electronically signed by: Alex Friedman MD (07/06/2020 2:53 PM) [id number] DICTATED and SIGNED BY: ALEX FRIEDMAN MD DATE: 07/06/20 1453 Assessment and Plan Assessmemt and Plan Problems Medical Problems: (1) Hypertension Status: Acute DPOA DISCUSSION 17 MIN NEEDS TO UPDATE WITH CARDING MACHINE OPERATOR 07/07 What Is a Power of Internet Site Designer? A power of criminal defense attorney (POA) is a legal document giving one person (the agent or aqmbnkvl-zu-vlev) the power to act for another person (the principal). The agent can have broad legal authority or limited authority to make legal decisions ab out the principal's property, finances or medical care. The power of criminal defense attorney is frequently used in the event of a principal's illness or disability, or when the principal can't be present to sign necessary legal documents for financial transactions. A power of criminal defense attorney can end for a number of reasons, such as when the principal dies, the principal revokes it, a court invalidates it, the principal divorces their spouse, who happens to be the agent, or the agent can no longer carry out the outlined responsibilities. Conventional POAs lapse when the creator becomes incapacitated, but a durable POA remains in force to enable the agent to manage the creators affairs, and a springing POA comes into effect only if and when the creator of the POA becomes incapacitated. A medical or healthcare POA enables an agent to make medical decisions on behalf of an incapacitated person. A power of criminal defense attorney (POA) is a legal document giving one person, the agent or fxqqhqfa-lk-ulsf the power to act for another person, the principal. The agent can have broad legal authority or limited authority to make decisions about the principal's property, finances or medical care. The power of criminal defense attorney is often used when a principal becomes ill or disabled, or when they can't be present to sign necessary legal documents for financial transactions. Understanding Power of Internet Site Designer A power of criminal defense attorney should be considered when planning for long-term care. There are different types of POAs that fall under either a general power of criminal defense attorney or limited power of criminal defense attorney. A general power of criminal defense attorney acts on behalf of the principal in any and all matters, as allowed by the state. The agent under a general POA agreement may be authorized to take care of issues such as handling bank accounts, signing checks, selling property and assets like stocks, f A limited power of criminal defense attorney gives the agent the power to act on behalf of the principal in specific matters or events. For example, the limited POA may explicitly state that the agent is only allowed to manage the principal's detention accounts. A limited POA may also be limited to a specific period of time (e.g., if the principal will be out of the country for, say, two years). Most casanova of criminal defense attorney documents allow an agent to represent the principal in all property and financial matters as long as the principals mental state of mind is good. If a situation occurs where the principal becomes incapable of making decisions for him or herself, the POA agreement would automatically end. However, someone who wants the POA to remain in effect after the persons health deteriorates would need to sign a durable power of criminal defense attorney (DPOA). Important:A person appointed as power of criminal defense attorney is not necessarily an criminal defense attorney. The person could just be a trusted family member, friend, or acquaintance. Understanding the Durable Power of Internet Site Designer (DPOA) The durable power of criminal defense attorney (DPOA) remains in control of certain legal, property or financial matters specifically spelled out in the agreement, even after the principal becomes mentally incapacitated. While a DPOA can pay medical bills on behalf of the principal, the durable agent cannot make decisions related to the principal's health (e.g., taking the principal off life support is not up to a DPOA). The principal can sign a durable power of criminal defense attorney for health care, or healthcare power of criminal defense attorney (HCPA), if he wants an agent to have the power to make health-related decisions. This document also called a healthcare proxy, outlines the principals consent to give the agent POA privileges in the event of an unfortunate medical condition. The durable POA for healthcare is legally bound to oversee medical care decisions on behalf of the principal. Another type of DPOA is the durable power of criminal defense attorney for finances, or simply a financial power of criminal defense attorney. This document allows an agent to manage the business and financial affairs of the principal, such as signing checks, filing tax returns, mailing and depositing Social Security checks and managing investment accounts, in the event, the latter becomes unable to understand or make decisions. To the extent of what the agreement spells out as the agents responsibility, the agent has to carry out the principals wishes to the best of his ability. When the agent acts on behalf of the principal by making investment decisions through the medical i d sales or medical decisions through the healthcare professional, both institutions would ask to see the DPOA. Although the DPOA for both medical and financial matters can be one document, it is good to have separate DPOA for healthcare and finances. Since the DPOA for healthcare will have the principal's personal medical information, it would be inappropriate for the medical i d sales to have it, and the pediatrician/medical doctor dont need to know the financial status of the patient either. conditions for which a durable POA may become active are set up in a document called the springing power of criminal defense attorney. The springing POA defines the kind of event or level of incapacitation that should occur before the DPOA springs into effect. A power of criminal defense attorney can remain dormant until a negative health occurre nce activates it to a DPOA. How Power of Internet Site Designer Works You can buy or download a power of criminal defense attorney template. If you do, be sure it is for your state, as requirements differ. However, this document may be too important to leave to the chance that you got the correct form and handled it properly. A better way to start the process of establishing a power of criminal defense attorney is by locating an criminal defense attorney who specializes in family law in your state. If criminal defense attorney's fees are more than you can afford, legal services offices staffed with credentialed attorneys exist in virtually every part of the [place]. Visit the [employer] website, which has a "Find Process Expert" search function. Clients who qualify will receive pro tracey (cost-free) assistance FINAL DIAGNOSIS Problems Medical Problems: (1) Hypertension Status: Acute Brief Hospital Course Mr. Cooney is a 80 old [sex] who presented with [ seizure, chf, copd] CONDITION AT DISCHARGE: Improved Discharge Medications Current Medications Lorazepam (Ativan Inj) 2 mg 1X ONCE IVP Last administered on 06/29/20at 10:14; Start 06/29/20 at 10:00; Stop 06/29/20 at 10:01; Status DC Lorazepam (Ativan Inj) 2 mg STK-MED ONCE .ROUTE ; Start 06/29/20 at 09:45; Stop 06/29/20 at 09:45; Status DC Levetiracetam 500 mg/Dextrose 105 ml @ 420 mls/hr 1X ONCE IV Last administered on 06/29/20at 10:30; Start 06/29/20 at 10:30; Stop 06/29/20 at 10:44; Status DC Magnesium Sulfate/ Dextrose 100 ml @ 100 mls/hr 1X ONCE IV Last administered on 06/29/20at 11:02; Start 06/29/20 at 11:00; Stop 06/29/20 at 11:59; Status DC Levetiracetam 500 mg/Dextrose 105 ml @ 420 mls/hr 1X ONCE IV ; Start 06/29/20 at 11:00; Stop 06/29/20 at 11:14; Status DC Morphine Sulfate (Morphine Sulfate) 1 mg PRN Q1HR PRN IV MODERATE PAIN; Start 06/29/20 at 11:15; Stop 07/02/20 at 09:34; Status DC Morphine Sulfate (Morphine Sulfate) 2 mg PRN Q1HR PRN IV SEVERE PAIN; Start 06/29/20 at 11:15; Stop 07/01/20 at 07:15; Status DC Lorazepam (Ativan Inj) 2 mg PRN Q15MIN PRN IVP seizure activity; Start 06/29/20 at 11:30; Stop 07/02/20 at 09:34; Status DC Ondansetron HCl (Zofran) 4 mg PRN Q8HRS PRN IV NAUSEA/VOMITING; Start 06/29/20 at 11:45; Stop 06/30/20 at 11:44; Status DC Levetiracetam 500 mg/Dextrose 105 ml @ 420 mls/hr Q12HR IV Last administered on 06/30/20 08:36; Start 06/29/20 at 21:00; Stop 06/30/20 at 12:44; Status DC Amlodipine Besylate (Norvasc) 10 mg DAILY PO Last administered on 07/07/20 08:34; Start 06/29/20 at 14:30 Apixaban (Eliquis) 5 mg BID PO Last administered on 07/07/20 08:34; Start 06/29/20 at 14:30 Atorvastatin Calcium (Lipitor) 20 mg QHS PO Last administered on 07/06/20 21:03; Start 06/29/20 at 21:00 Metoprolol Tartrate (Lopressor) 25 mg BID PO Last administered on 07/07/20 08:34; Start 06/29/20 at 14:30 Levetiracetam (Keppra) 750 mg BID PO Last administered on 07/07/20 08:34; Start 06/30/20 at 21:00 Potassium Chloride/Dextrose/ Sod Cl 1,000 ml @ 80 mls/hr [id number] IV ; Start 07/01/20 at 07:30; Stop 07/01/20 at 07:45; Status DC Potassium Chloride (Klor-Con) 40 meq 1X ONCE PO Last administered on 07/01/20 12:39; Start 07/01/20 at 08:00; Stop 07/01/20 at 08:01; Status DC Olanzapine (ZyPREXA ZYDIS) 5 mg PRN BID PRN PO ANXIETY / AGITATION Last administered on 07/01/20 21:11; Start 07/01/20 at 12:00 Info (Anti-Coagulation Monitoring By Pharmacy) 1 each PRN DAILY PRN MC SEE COMMENTS Last administered on 07/04/20 08:10; Start 07/01/20 at 12:15 Ondansetron HCl (Zofran Odt) 4 mg PRN Q6HRS PRN PO NAUSEA/VOMITING; Start 07/02/20 at 09:45 Acetaminophen (Tylenol) 650 mg PRN Q6HRS PRN PO MILD PAIN / TEMP > 100.3'F Last administered on 07/04/20at 11:20; Start 07/02/20 at 09:45 Cyclobenzaprine HCl (Flexeril) 5 mg TID PRN PRN PO MUSCLE SPASMS Last administered on 07/02/20at 20:40; Start 07/02/20 at 15:45 Sodium Chloride 1,000 ml @ 75 mls/hr 1X ONCE IV Last administered on 07/03/20at 11:47; Start 07/03/20 at 09:15; Stop 07/03/20 at 22:34; Status DC Acetaminophen/ Hydrocodone Bitart (Lortab 5/325) 1 tab PRN Q4HRS PRN PO MODERATE TO SEVERE PAIN Last administered on 07/07/20at 05:36; Start 07/04/20 at 12:15 Bisacodyl (Dulcolax Supp) [address] CONSTIPATION Last administered on 07/06/20at 14:36; Start 07/06/20 at 08:45 Albuterol/ Ipratropium (Duoneb) 3 ml RTQID NEB Last administered on 07/07/20at 11:07; Start 07/06/20 at 12:00 Active Scripts Active Levetiracetam 750 Mg Tablet 750 Mg PO BID 90 Days Metoprolol Tartrate 25 Mg Tablet 25 Mg PO BID 30 Days Reported Hydralazine Hcl 10 Mg Tablet 2 Tab PO TID Zoloft (Sertraline Hcl) 50 Mg Tablet 1 Tab PO DAILY Amlodipine Besylate 10 Mg Tablet 10 Mg PO DAILY Eliquis (Apixaban) 5 Mg Tablet 5 Mg PO BID Lisinopril 20 Mg Tablet 2 Tab PO DAILY Lipitor (Atorvastatin Calcium) 20 Mg Tablet 1 Tab PO DAILY Vital Signs Vital Signs Date Time Temp Pulse Resp B/P (MAP) Pulse Ox O2 Delivery O2 Flow Rate FiO2 07/07/20 11:07 95 Nasal Cannula 3.0 07/07/20 08:34 76 143/56 07/07/20 07:00 98.0 18 98.0 Allergies Allergies Coded Allergies Type Severity Reaction Last Updated Verified No Known Drug Allergies 09/09/18 No Disposition/Orders: D/C to Home w/ HH Justicifation of Admission Dx: Justifications for Admission: Justification of Admission Dx: Yes (seizure, confusion) Altered Mental Status: Altered Mental Status KHANG HOWELL MD Jul 07, 2020 11:28
[2020-07-07] MEDS ORDERED: ACET325T9 PO (11:30)
[2020-07-07] MEDS ORDERED: BISA10SU4 PR (11:30)
[2020-07-07] MEDS ORDERED: IPRA3AMP29 NEB (11:30)
[2020-07-07] MEDS ORDERED: LEVE500T56 PO (11:30)
[2020-07-07] MEDS ORDERED: OLAN5TAB7 PO (11:30)
[2020-07-07] MEDS ORDERED: FURO-69 PO (11:32)
--- NOTE | 2020-07-07 11:32 | SNU/HH DC ---
DISCHARGE WITH HOME HEALTH DISCHARGE INFORMATION: Discharge Date: Jul 07, 2020 Final Diagnosis: Problems Medical Problems: (1) Hypertension Status: Acute Condition on Discharge: Guarded CODE STATUS: Code Status: DNR/DNI HOME HEALTH: Face to Face: I certify this patient is under my care and that I, or a nurse practitioner or physician's assistant business manager working with me, had a face to face encounter that meets the physician face to face encounter requirements with this patient on []. Medical Complications: COPD, Dementia, DJD RN For Eval/Treatment: Yes Physical Therapy For: Evalulation/Treatment Occupational Therapy For: Evaluation/Treatment Speech Language Pathology For: Evaluation/Treatment Home Health Aide For: Self-care HUMAN PERFORMANCE TECHNOLOGIST For: Community Resources Pt Meets Homebound Status: Poor coordination w/ amb., Unsteady balance w/ amb, POST DISCHARGE ORDERS: Activity Instructions for Disc: No restrictions, Resume previous activity, Activity as tolerated Weight Bearing Status after Di: No restrictions, Full weight bearing, As tolerated DIET AFTER DISCHARGE: Cardiac Wound/Incision Care: Keep wound/cast CDI CHECKS AFTER DISCHARGE: Checks after discharge: Check blood press - daily, Check your Temp as needed FOLLOW-UP: Follow up with: DR. MELTON (NEUOROLOGY) [phone] IN 4-8 WEEKS Follow Up With: PRIMARY CARE PROVIDER IN 1-2 WEEKS TREATMENT/EQUIPMENT ORDERS: Adaptive Equipment Issued: None, Front wheeled walker, Raised toilet seat w/arms Discharge Respiratory Equipmen: Oxygen, Nebulizer CERTIFICATION STATEMENT: Certification Statement: Certification Statement: Based on the above finding, I certify that this patient is confined to the home and needs intermittent usp care, physical therapy and/or speech therapy, or continues to need occupational therapy.~ This patient is under my care, and I have initiated the establishment of the plan of care.~ This patient will be followed by myself or a community physician who will periodically review the plan of care. Home Meds Active Scripts Bisacodyl (BISACODYL) 10 Mg Supp.rect, 10 MG OR PRN DAILY PRN for CONSTIPATION for 30 Days, #14 SUPP.RECT Prov:KHANG HOWELL MD 07/07/20 Olanzapine (OLANZAPINE ODT) 5 Mg Tab.rapdis, 5 MG PO PRN BID PRN for ANXIETY / AGITATION for 14 Days, #30 TAB Prov:KHANG HOWELL MD 07/07/20 Levetiracetam (KEPPRA) 500 Mg Tablet, 750 MG PO BID for seizure for 30 Days, #90 TAB Prov:KHANG HOWELL MD 07/07/20 Acetaminophen (TYLENOL) 325 Mg Tablet, 650 MG PO PRN Q6HRS PRN for MILD PAIN / TEMP > 100.3'F for 30 Days, #60 TAB Prov:KHANG HOWELL MD 07/07/20 Ipratropium/Albuterol Sulfate (DUONEB 0.5-3(2.5) MG/3 ML) 3 Ml Ampul.neb, 3 ML NEB RTQID for copd for 30 Days, #120 EACH Prov:KHANG HOWELL MD 07/07/20 Levetiracetam (LEVETIRACETAM) 750 Mg Tablet, 750 MG PO BID for Seizures for 90 Days, #180 TAB 1 Refill Prov:ANDREW HILARIO MD 06/30/20 Metoprolol Tartrate (METOPROLOL TARTRATE) 25 Mg Tablet, 25 MG PO BID for CHF for 30 Days, #60 TAB Prov:GEM HATCH MD 11/13/19 Reported Medications Hydralazine Hcl (HYDRALAZINE HCL) 10 Mg Tablet, 2 TAB PO TID for HTN, #90 TAB 3 Refills 06/29/20 Sertraline Hcl (ZOLOFT) 50 Mg Tablet, 1 TAB PO DAILY for DEPRESSION, #30 TAB 2 Refills 06/29/20 Amlodipine Besylate (AMLODIPINE BESYLATE) 10 Mg Tablet, 10 MG PO DAILY, TAB 11/09/19 Apixaban (ELIQUIS) 5 Mg Tablet, 5 MG PO BID, TAB 11/09/19 Lisinopril (LISINOPRIL) 20 Mg Tablet, 2 TAB PO DAILY, #30 TAB 5 Refills 11/09/19 Atorvastatin Calcium (LIPITOR) 20 Mg Tablet, 1 TAB PO DAILY, #90 TAB 1 Refill 11/09/19 Discontinued Scripts Levetiracetam (KEPPRA) 500 Mg Tablet, 500 MG PO BID for Seizure disorder for 30 Days, #60 TAB Prov:GEM HATCH MD 11/13/19 KHANG HOWELL MD Jul 07, 2020 11:32
--- NOTE | 2020-07-07 13:45 | NUR ---
SW following. Spoke with RN and reviewed chart. Pt requesting to discharge home today with HH. Pt would like HH from [facility]. YVES completed Patient Choice of Vendor form. YVES obtained HH discharge orders from Dr. Card. YVES completed referral to Joelle with [facility]. YVES also requested a 6 min walk and coordinated care with respiratory. SW awaiting results of 6 min walk to determine if 02 setup is needed at discharge. Spoke with pt's sister in-law who is agreeable to [facility] for HH and [facility] for 02 if needed. Pt's [id number] confirmed again that pt will have 24 hour care from family. Family to pick pt up at 1700 tonight. YVES notified Myrna with [facility] that pt decided to discharge home with HH as SNU authorization remains pending (has been assigned to a CM for review). Addendum: 07/07/20 at 1623 by SHIRA MARINELLI 6 min walk results back. Pt requiring 3l 02. YVES obtained 02 script and faxed that with clinicals to Roe with [facility]. YVES took 02 tank up to RN. Pt to discharge home at 1700 and [facility] to do home 02 setup this evening. No further YVES needs at this time. Addendum: 07/08/20 at 1542 by SHIRA MARINELLI Scot called to say [facility] authorization was declined. Pt discharged home yesterday, 07/07 with . Spoke with [id number] today who stated no concerns r/t 02 setup or Mirna PAYNE start of care is 07/09.
--- NOTE | 2020-07-07 14:31 | PDOC ---
PROGRESS NOTES Date of Service DATE: 07/07/20 TIME: 14:30 Assessment Problems Medical Problems: (1) Hypertension Status: Acute Episodes of generalized shaking, fully alert, sometimes just in the right leg, he has had none in the past 48 hours he says. 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 Given the runaround from the "insurance company" family may just take him home Follow-up with me in 4-[address] Card Subjective No complaints Objective Vital Signs Date Time Temp Pulse Resp B/P (MAP) Pulse Ox O2 Delivery O2 Flow Rate FiO2 07/07/20 11:07 95 Nasal Cannula 3.0 07/07/20 11:00 97.9 70 18 135/63 (87) 97.9 Intake and Output 07/07/20 07:00 Intake Total 1340 ml Output Total 675 ml Balance 665 ml Intake Oral 1340 ml Output Urine Total 675 ml # Bowel Movements 1 PHYSICAL EXAM Alert. Oriented to time, place and person. PERRL. EOMI. CN: no focal findings. Muscle tone: normal. Muscle strength: 4/5 DTR: 1+ Plantar reflex: flexor Gait: not tested Sensory exam: no abnormalities Review of Relevant I have reviewed the following items surinder (where applicable) has been applied. Labs Microbiology 07/04/20 Urine Culture - Final, Complete Medications Current Medications Lorazepam (Ativan Inj) 2 mg 1X ONCE IVP Last administered on 06/29/20at 10:14; Start 06/29/20 at 10:00; Stop 06/29/20 at 10:01; Status DC Lorazepam (Ativan Inj) 2 mg STK-MED ONCE .ROUTE ; Start 06/29/20 at 09:45; Stop 06/29/20 at 09:45; Status DC Levetiracetam 500 mg/Dextrose 105 ml @ 420 mls/hr 1X ONCE IV Last administered on 06/29/20at 10:30; Start 06/29/20 at 10:30; Stop 06/29/20 at 10:44; Status DC Magnesium Sulfate/ Dextrose 100 ml @ 100 mls/hr 1X ONCE IV Last administered on 06/29/20at 11:02; Start 06/29/20 at 11:00; Stop 06/29/20 at 11:59; Status DC Levetiracetam 500 mg/Dextrose 105 ml @ 420 mls/hr 1X ONCE IV ; Start 06/29/20 at 11:00; Stop 06/29/20 at 11:14; Status DC Morphine Sulfate (Morphine Sulfate) 1 mg PRN Q1HR PRN IV MODERATE PAIN; Start 06/29/20 at 11:15; Stop 07/02/20 at 09:34; Status DC Morphine Sulfate (Morphine Sulfate) 2 mg PRN Q1HR PRN IV SEVERE PAIN; Start 06/29/20 at 11:15; Stop 07/01/20 at 07:15; Status DC Lorazepam (Ativan Inj) 2 mg PRN Q15MIN PRN IVP seizure activity; Start 06/29/20 at 11:30; Stop 07/02/20 at 09:34; Status DC Ondansetron HCl (Zofran) 4 mg PRN Q8HRS PRN IV NAUSEA/VOMITING; Start 06/29/20 at 11:45; Stop 06/30/20 at 11:44; Status DC Levetiracetam 500 mg/Dextrose 105 ml @ 420 mls/hr Q12HR IV Last administered on 06/30/20at 08:36; Start 06/29/20 at 21:00; Stop 06/30/20 at 12:44; Status DC Amlodipine Besylate (Norvasc) 10 mg DAILY PO Last administered on 07/07/20at 08:34; Start 06/29/20 at 14:30 Apixaban (Eliquis) 5 mg BID PO Last administered on 07/07/20at 08:34; Start 06/29/20 at 14:30 Atorvastatin Calcium (Lipitor) 20 mg QHS PO Last administered on 07/06/20at 21:03; Start 06/29/20 at 21:00 Metoprolol Tartrate (Lopressor) 25 mg BID PO Last administered on 07/07/20at 08:34; Start 06/29/20 at 14:30 Levetiracetam (Keppra) 750 mg BID PO Last administered on 07/07/20 08:34; Start 06/30/20 at 21:00 Potassium Chloride/Dextrose/ Sod Cl 1,000 ml @ 80 mls/hr [id number] IV ; Start 07/01/20 at 07:30; Stop 07/01/20 at 07:45; Status DC Potassium Chloride (Klor-Con) 40 meq 1X ONCE PO Last administered on 07/01/20at 12:39; Start 07/01/20 at 08:00; Stop 07/01/20 at 08:01; Status DC Olanzapine (ZyPREXA ZYDIS) 5 mg PRN BID PRN PO ANXIETY / AGITATION Last administered on 07/01/20at 21:11; Start 07/01/20 at 12:00 Info (Anti-Coagulation Monitoring By Pharmacy) 1 each PRN DAILY PRN MC SEE COMMENTS Last administered on 07/04/20at 08:10; Start 07/01/20 at 12:15 Ondansetron HCl (Zofran Odt) 4 mg PRN Q6HRS PRN PO NAUSEA/VOMITING; Start 07/02/20 at 09:45 Acetaminophen (Tylenol) 650 mg PRN Q6HRS PRN PO MILD PAIN / TEMP > 100.3'F Last administered on 07/04/20at 11:20; Start 07/02/20 at 09:45 Cyclobenzaprine HCl (Flexeril) 5 mg TID PRN PRN PO MUSCLE SPASMS Last administered on 07/02/20at 20:40; Start 07/02/20 at 15:45 Sodium Chloride 1,000 ml @ 75 mls/hr 1X ONCE IV Last administered on 07/03/20at 11:47; Start 07/03/20 at 09:15; Stop 07/03/20 at 22:34; Status DC Acetaminophen/ Hydrocodone Bitart (Lortab 5/325) 1 tab PRN Q4HRS PRN PO MODERATE TO SEVERE PAIN Last administered on 07/07/20at 05:36; Start 07/04/20 at 12:15 Bisacodyl (Dulcolax Supp) 10 mg PRN DAILY PRN RI CONSTIPATION Last administered on 07/06/20at 14:36; Start 07/06/20 at 08:45 Albuterol/ Ipratropium (Duoneb) 3 ml RTQID NEB Last administered on 07/07/20at 11:07; Start 07/06/20 at 12:00 Active Scripts Active Lasix (Furosemide) 20 Mg Tablet 1 Tab PO DAILY 30 Days Bisacodyl 10 Mg Supp.rect 10 Mg RI PRN DAILY PRN 30 Days Olanzapine Odt (Olanzapine) 5 Mg Tab.rapdis 5 Mg PO PRN BID PRN 14 Days Keppra (Levetiracetam) 500 Mg Tablet 750 Mg PO BID 30 Days Tylenol (Acetaminophen) 325 Mg Tablet 650 Mg PO PRN Q6HRS PRN 30 Days Duoneb 0.5-3(2.5) Mg/3 Ml (Albuterol/Ipratropium) 3 Ml Ampul.neb 3 Ml NEB RTQID 30 Days Levetiracetam 750 Mg Tablet 750 Mg PO BID 90 Days Metoprolol Tartrate 25 Mg Tablet 25 Mg PO BID 30 Days Reported Hydralazine Hcl 10 Mg Tablet 2 Tab PO TID Zoloft (Sertraline Hcl) 50 Mg Tablet 1 Tab PO DAILY Amlodipine Besylate 10 Mg Tablet 10 Mg PO DAILY Eliquis (Apixaban) 5 Mg Tablet 5 Mg PO BID Lisinopril 20 Mg Tablet 2 Tab PO DAILY Lipitor (Atorvastatin Calcium) 20 Mg Tablet 1 Tab PO DAILY Vitals/I & O Vital Sign - Last 24 Hours 07/06/20 07/06/20 07/06/20 07/06/20 15:18 15:59 19:00 19:30 Temp 98.1 98.7 98.1 98.7 Pulse 93 90 Resp 18 24 B/P (MAP) 112/61 (78) 97/61 (73) Pulse Ox 95 96 94 O2 Delivery Room Air Nasal Cannula Nasal Cannula Nasal Cannula O2 Flow Rate 3.0 2.0 3.0 07/06/20 07/06/20 07/06/20 07/07/20 20:35 23:00 23:02 03:00 Temp 98.0 97.6 98.0 97.6 Pulse 82 81 76 Resp 22 22 B/P (MAP) 122/69 (86) 122/69 149/74 (99) Pulse Ox 96 96 95 O2 Delivery Nasal Cannula Nasal Cannula Nasal Cannula O2 Flow Rate 3.0 3.0 3.0 07/07/20 07/07/20 07/07/20 07/07/20 05:36 07:00 07:02 08:34 Temp 98.0 98.0 Pulse 76 76 Resp 18 B/P (MAP) 143/56 (85) 143/56 Pulse Ox 95 95 92 O2 Delivery Nasal Cannula Nasal Cannula Nasal Cannula O2 Flow Rate 3.0 3.0 3.0 07/07/20 07/07/20 07/07/20 08:34 11:00 11:07 Temp 97.9 97.9 Pulse 76 70 Resp 18 B/P (MAP) 143/56 135/63 (87) Pulse Ox 96 95 O2 Delivery Nasal Cannula Nasal Cannula O2 Flow Rate 3.0 3.0 Intake and Output 07/06/20 07/06/20 07/07/20 15:00 23:00 07:00 Intake Total 560 ml 480 ml 300 ml Output Total 200 ml 100 ml 375 ml Balance 360 ml 380 ml -75 ml Justicifation of Admission Dx: Justifications for Admission: Justification of Admission Dx: Yes (seizure, confusion) Altered Mental Status: Altered Mental Status HAILY SHEETS MD Jul 07, 2020 14:31
[2020-07-07 15:00] VITALS: BP 144/70
--- NOTE | 2020-07-07 17:00 | NUR ---
DISCHARGE INSTRUCTIONS GIVEN, QUESTIONS AND CONCERNS ANSWERED, PATIENT VERBALIZED UNDERSTANDING OF DISCHARGE INFORMATION INCLUDING TAKING ALL MEDICATIONS INSTRUCTED, USING PROVIDED OXYGEN INSTRUCTED (3 LITERS AT REST AND 5 LITERS WHEN UP), PATIENT INFORMED THAT [facility] WOULD FOLLOW HIS CARE IN THE HOME. ALL PERSONAL BELONGINGS GATHERED BY THE PATIENT AND SCREW MACHINE REPAIRER AND PLACED IN BAGS FOR DISCHARGE, SALINE LOCK REMOVED PER SCREW MACHINE REPAIRER, BANDAGE APPLIED.
--- NOTE | 2020-07-07 17:50 | NUR ---
PATINT LEAVES THE UNIT PER W/C, EMOTIONAL SUPPORT GIVEN, FOLLOW UP APPOINTMENTS ENCOURAGED.
== END 2020-07-07 17:50 | disposition home health service (06) | DRG 100 ==
LOC: ER 09:32 → 5 NORTH 10:48
PROVIDERS: ADMIT Family Medicine; ATTEND Family Medicine
DX: G40.909 Epilepsy, unspecified, not intractable, without status epilepticus (principal); N17.0 Acute kidney failure with tubular necrosis; G93.41 Metabolic encephalopathy; F05 Delirium due to known physiological condition; E78.00 Pure hypercholesterolemia, unspecified; E78.5 Hyperlipidemia, unspecified; F01.50 Vascular dementia, unspecified severity, without behavioral disturbance, psychotic disturbance, mood disturbance, and anxiety; I11.0 Hypertensive heart disease with heart failure; I48.91 Unspecified atrial fibrillation; I50.9 Heart failure, unspecified; I65.21 Occlusion and stenosis of right carotid artery; I69.311 Memory deficit following cerebral infarction; J43.2 Centrilobular emphysema; M41.9 Scoliosis, unspecified; Z20.828 Contact with and (suspected) exposure to other viral communicable diseases; W18.11XA Fall from or off toilet without subsequent striking against object, initial encounter; W18.30XA Fall on same level, unspecified, initial encounter; Y92.238 Other place in hospital as the place of occurrence of the external cause; S09.90XA Unspecified injury of head, initial encounter; M19.90 Unspecified osteoarthritis, unspecified site; K21.9 Gastro-esophageal reflux disease without esophagitis; Z66 Do not resuscitate; M50.322 Other cervical disc degeneration at C5-C6 level; Z79.01 Long term (current) use of anticoagulants; Z86.79 Personal history of other diseases of the circulatory system; Z87.891 Personal history of nicotine dependence; Y92.009 Unspecified place in unspecified non-institutional (private) residence as the place of occurrence of the external cause; Y99.8 Other external cause status
CPT/HCPCS: 36415; 70450; 71045; 72125; 73610; 80048; 80053; 80177; 80307; 81001; 82550; 83735; 83880; 84100; 84484; 85025; 85610; 85730; 87086; 94618; 94640; 94760; 96365; 96368; 96375; J1953; J2060; J3475; J7030; J7060; 97110-GP; 97116-GP; 97530-GO; 97530-GP; 97535-GO; 99285-25; G0378; U0003-CS